=== PATIENT | female | born 1965 | race Caucasian/White ===

== ENCOUNTER 2021-01-19 14:36 | Day surgery (SDC) | payer MEDICARE, MEDICAID, SELFPAY ==
--- NOTE | ~2021-01-19 | FL_ITS ---
EXAMINATION: XR FLUOROSCOPY WITH IMAGES CLINICAL INFORMATION: Left kidney stone COMPARISON: None. TECHNIQUE: Fluoroscopy performed by Dr. Gee. Fluoroscopy time: 0.5 minutes DAP: 7.46 mGycm2 Images: 2 FINDINGS: Contrast opacification of the distal ureter is demonstrated. There may be a focus of narrowing versus peristalsis of the distal ureter. Additional image demonstrates the distal extent of a ureteral stent. FL/FL guidance in OR IMPRESSION: Intraoperative fluoroscopy provided for left ureteral stent placement. Correlate with the surgical notes.
[2021-01-19 15:13] VITALS: BMI 21.7
--- NOTE | 2021-01-19 15:39 | P.CONAN_ITS ---
[facility] Active Problems Active Problems: All Active Problems (Updated 01/13/21 @ 16:23 by Samuel klein MD) Nephrolithiasis (Acute) Social History Social History Patient Tobacco Use Status: Current everyday Tobacco user Cigarettes Per Day: 10 Use of substances other than those prescribed or required for medical reasons: Yes Substance Use Frequency: Daily Are you DNR?: No Advance Directives: Yes Advance Directives Information Provided: Yes Advance Directives on File: No Advance Directives Date on File: 01/19/21 Meds Allergies Allergy/AdvReac Type Severity Reaction Status Date / Time hydrochlorothiazide [Maxzide] Allergy Unknown Verified 07/13/19 00:00 morphine [MORPHINE] Allergy Unknown NAUSEA & Unverified 04/10/20 16:30 VOMITING penicillin V Allergy Unknown Verified 07/13/19 00:00 Penicillins [PENICILLINS] Allergy Unknown RASH Unverified 04/10/20 16:30 Sulfa (Sulfonamide Allergy Unknown RASH Unverified 04/10/20 16:30 Antibiotics) [SULFA (SULFONAMIDE ANTIBIOTICS)] sulfamethoxazole Allergy Unknown RASH Unverified 04/10/20 16:30 [From BACTRIM] tamsulosin [From FLOMAX] Allergy Unknown RASH Unverified 04/10/20 16:30 triamterene [Maxzide] Allergy Unknown Verified 07/13/19 00:00 trimethoprim [From BACTRIM] Allergy Unknown RASH Unverified 04/10/20 16:30 Sulfacet-R Allergy Unknown Uncoded 07/13/19 00:00 Exam Exam Date and Time: January 19, 2021 1539 Height,Weight and Vital Signs: Height 5 ft 1 in Weight 52.163 kg Airway Mallampati Class: II TM Dist: >3cm Neck ROM: Full Assessment and Plan Assessment Anesthesia Assessment: Anesthesia Plan Discussed, Smoking Cess. Discussed and Chart Reviewed Final Anesthetic Review NPO: Yes ASA Class: II Final Preanesthetic Review: No Changes in Pt Med Stat, Meds/Allgs Chart Reviewed, Consent Obtained/Reviewed and Anes Risks/Benef Reviewed Patient Risk: Low Procedure Risk: Low Assessment/Block/Sedation in SS: Assess/Block/Sedation-SS Anesthetic Plan Anesthetic Plan: GA Disposition: Standard PACU
[2021-01-19] MEDS: levoFLOXacin 500 MG TABLET PO (15:58)
--- NOTE | 2021-01-19 15:58 | P.HPSUR_ITS ---
Pre-Procedural Eval Section A Date of Service: 01/19/21 Section B Chief Complaint: calculus of kidney Details of Present Illness: complaint of left flank pain with CT scan from [facility] showing left ureteric stone Relevant Family History (Specify if Yes): Yes Relevant Social History: None Present Medications: see Short Stay Collaborative assessment Medical History: Significant History ( recurrent stone former) History of Previous Operations: Relevant previous surgery/procedure and date(s) Allergies: Allergies Allergy/AdvReac Type Severity Reaction Status Date / Time hydrochlorothiazide [Maxzide] Allergy Unknown Verified 07/13/19 00:00 morphine [MORPHINE] Allergy Unknown NAUSEA & Unverified 04/10/20 16:30 VOMITING penicillin V Allergy Unknown Verified 07/13/19 00:00 Penicillins [PENICILLINS] Allergy Unknown RASH Unverified 04/10/20 16:30 Sulfa (Sulfonamide Allergy Unknown RASH Unverified 04/10/20 16:30 Antibiotics) [SULFA (SULFONAMIDE ANTIBIOTICS)] sulfamethoxazole Allergy Unknown RASH Unverified 04/10/20 16:30 [From BACTRIM] tamsulosin [From FLOMAX] Allergy Unknown RASH Unverified 04/10/20 16:30 triamterene [Maxzide] Allergy Unknown Verified 07/13/19 00:00 trimethoprim [From BACTRIM] Allergy Unknown RASH Unverified 04/10/20 16:30 Sulfacet-R Allergy Unknown Uncoded 07/13/19 00:00 Review of Systems Sugical H&P ROS: Negative: Constitution, Cardiovascular, Respiratory, Neurological, Psychiatric, Hem-Onc, Allergic/Immunologic, Gastrointestinal, Genitourinary, Musculoskeletal, Integumentary, Endocrine and Eyes/Ears/Nose/Throat Exam Surgical H&P Exam: Normal: HEENT, Normal: Heart, Normal: Lungs, Normal: Extremities, Normal: Abdomen, Normal: Skin and Normal: Neurological Plan Diagnosis/Plan: Unchanged ( left retrograde, ureteroscopy, laser lithotripsy stent placement) I have reviewed the history and physical and performed a pertinent physical examination on my patient. No changes have occurred unless specified.
--- NOTE | 2021-01-19 17:13 | W.PM.OPN ---
Operative Note Operative Note Date of Service: 01/19/21 Narrative: PreOperative Diagnosis: left mid ureteric stone with hydroureteronephrosis Post Operative Diagnosis: left mid ureteric stone with hydroureteronephrosis Procedure: - left cystoscopy, retrograde - left dilatation of ureteric orifice under fluoroscopy - left ureteroscopy, laser lithotripsy, stone basketing - left stent placement Surgeon: Dr Samuel Gee Anesthesia: General Indications for procedure: this is a 55-year-old female. She presented to the emergency room last week and CT scan imaging was performed. CT scan showed stone in the mid ureter. She called early last week seeking intervention. Has previously had ureteroscopy. Recommendation was for ureteroscopy with laser lithotripsy and stent placement. Procedure: After informed consent was verified patient was brought to the operating placed in supine position. Anesthesia was administered per protocol. Patient was placed in modified dorsal lithotomy position and prepped and draped in a sterile fashion. Safety pause time-out and side of surgery confirmed. Antibiotics confirmed. Twenty-two [place] cystoscope inserted per urethra. Bladder emptied. Left ureteric orifice was cannulated and retrograde examination was performed. Filling defect was seen in the mid left ureter. Sensor guidewire was placed. [place] dilator used to dilate ureteric orifice. Rigid ureteral scope placed. Stone was encountered in mid ureter. Using a 365 laser fiber the stone was broken into small pieces. A 2.4 0 tip basket was used to clear the ureteric stones. One stones were cleared a 6 [place] by 24 cm double-J stent was placed without difficulty. She tolerated procedure well was extubated in operating room transferred in stable condition to recovery area. Pathology: Stones Drains: 6 [place] by 24 cm double-J stent
[2021-01-19 17:15] VITALS: BP 140/92; PULSE 61; RESP 14; TEMP 36.2; O2SAT 99
[2021-01-19 17:20] VITALS: BP 150/90; PULSE 64; RESP 15; O2SAT 98
[2021-01-19 17:25] VITALS: BP 149/94; PULSE 63; RESP 16; O2SAT 96
[2021-01-19] MEDS: Acetaminophen 325 MG TABLET 650 MG PO (17:25)
[2021-01-19] MEDS: oxyCODONE HCl Immed Release 5 MG TABLET PO (17:29)
[2021-01-19 17:30] VITALS: BP 110/80; PULSE 82; RESP 16; O2SAT 95
[2021-01-19 17:45] VITALS: BP 112/86; PULSE 82; RESP 16; TEMP 36.3; O2SAT 96
[2021-01-19] MEDS: Phenazopyridine HCL 100 MG TABLET PO (17:48)
[2021-01-24 16:46] LABS: Stone Source LEFT KIDNEY STONE
== END 2021-01-19 17:58 | disposition home or self-care (01) ==
PROVIDERS: PCP Family Medicine; Visit Provider Urology
PROC: (CPT 52356; principal; 2021-01-19 16:40)
DX: N20.1 Calculus of ureter (principal); N13.30 Unspecified hydronephrosis; F17.210 Nicotine dependence, cigarettes, uncomplicated; Z88.0 Allergy status to penicillin; Z88.2 Allergy status to sulfonamides; Z88.8 Allergy status to other drugs, medicaments and biological substances
CPT/HCPCS: 52356; 52352; 82365; 88300; C1758; C1769; C2617; J1100; J1885; J2250; J3010; Q9967

== ENCOUNTER → 2021-01-21 14:01 | Outpatient (BNVA) | payer MEDICARE, MEDICAID, SELFPAY | PROVIDERS: PCP Family Medicine; Visit Provider Urology | DX: N20.0 Calculus of kidney (principal) | CPT/HCPCS: 52310; 99212 ==

== ENCOUNTER → 2021-03-10 10:35 | Outpatient (BNVA) | payer MEDICARE, MEDICAID, SELFPAY | PROVIDERS: PCP Family Medicine; Visit Provider Urology | DX: N20.0 Calculus of kidney (principal) | CPT/HCPCS: 99212 ==

== ENCOUNTER 2022-02-16 07:41 | Day surgery (SDC) | payer MEDICARE, MEDICAID, SELFPAY ==
[2022-02-10 10:58] VITALS: BMI 20.7
[2022-02-16 08:22] VITALS: BP 123/87; PULSE 67; RESP 18; TEMP 36.7; O2SAT 97
[2022-02-16] MEDS: Lactated Ringers 1,000 ML 50 ML IVCONT (08:26)
--- NOTE | 2022-02-16 09:19 | MHC.SHP ---
Pre-Procedural Eval Section A Date of Service: 02/16/22 Section B Chief Complaint: barretts,abnormal findings Details of Present Illness: see H&P no changes Relevant Family History (Specify if Yes): No Relevant Social History: None Present Medications: see Short Stay [facility] assessment Medical History: No relevant PMH History of Previous Operations: No relevant previous surgery Allergies: Allergies Allergy/AdvReac Type Severity Reaction Status Date / Time morphine [MORPHINE] Allergy Intermediate NAUSEA & Verified 02/16/22 08:34 VOMITING Penicillins [PENICILLINS] Allergy Intermediate rash/swelli Verified 02/10/22 08:22 ng sulfamethoxazole Allergy Intermediate RASH Verified 02/10/22 08:23 [From BACTRIM] tamsulosin [From FLOMAX] Allergy Intermediate RASH Verified 02/10/22 08:23 trimethoprim [From BACTRIM] Allergy Intermediate RASH Verified 02/10/22 08:23 hydrochlorothiazide [Maxzide] Allergy Mild Rash Verified 02/10/22 08:22 triamterene [Maxzide] Allergy Mild Rash Verified 02/10/22 08:22 Review of Systems Sugical H&P ROS: Negative: Constitution, Cardiovascular, Respiratory, Neurological, Psychiatric, Hem-Onc, Allergic/Immunologic, Gastrointestinal, Genitourinary, Musculoskeletal, Integumentary, Endocrine and Eyes/Ears/Nose/Throat Exam Surgical H&P Exam: Normal: HEENT, Normal: Heart, Normal: Lungs, Normal: Extremities, Normal: Abdomen, Normal: Skin and Normal: Neurological Plan I have reviewed the history and physical and performed a pertinent physical examination on my patient. No changes have occurred unless specified.
[2022-02-16 10:10] VITALS: BP 123/76; PULSE 87; RESP 16; TEMP 36.2; O2SAT 98
--- NOTE | 2022-02-16 10:14 | PM.OP ---
Brief Operative Note Date of Service: 02/16/22 Pre-op diagnosis: barretts, abnormal findings in gi tract Post-op diagnosis: same Surgeon: Jorge Barksdale Anesthesia: MAC Was an Hydrography Teacher used for this Procedure?: No Estimated blood loss (mL): 2 Pathology: other Condition: stable Disposition: PACU
[2022-02-16 10:25] VITALS: BP 133/93; PULSE 67; RESP 16; TEMP 36.3; O2SAT 97
--- NOTE | 2022-02-16 10:31 | OP_ITS ---
SURGEON: Jorge Barksdale MD INDICATIONS: 1. Bolanos's esophagus. 2. Abnormal findings on GI tract examination. PREOPERATIVE DIAGNOSIS: POSTOPERATIVE DIAGNOSIS: PROCEDURE PERFORMED: Upper endoscopy with biopsy, colonoscopy to the terminal ileum with biopsy. ESTIMATED BLOOD LOSS: COMPLICATIONS: ANESTHESIA: Monitored anesthesia care. ASSISTANTS: SPECIMENS: DESCRIPTION OF PROCEDURE: History and physical performed. The risks and benefits of the procedure were explained to the patient. Informed consent was obtained. The patient placed in the left lateral decubitus position. The Olympus videogastroscope was introduced into the esophagus, stomach, and duodenum. Examination was performed. The scope was removed. She was repositioned for colonoscopy. A digital rectal exam was performed and was found to be normal. The Olympus pediatric videocolonoscope was introduced into the rectum and advanced to the cecum without difficulty. The cecum was identified by transillumination, palpation, and identification of ileocecal valve. Examination was performed. The scope was removed. She tolerated both procedures well, returned to recovery room in stable condition. FINDINGS: Upper endoscopy: Esophagus; the esophagus was normal. There was no esophagitis. The EG junction was irregular. There were no raised lesions or ulcerated areas. There was a small sliding hiatal hernia. Biopsies were obtained from the EG junction. Stomach; the stomach showed no evidence of masses, ulcers, or polyps. No evidence of parasites was identified. Biopsies were obtained from the antrum. Duodenum; the bulb and second portion were normal. Duodenal biopsies were obtained. Colonoscopy: The terminal ileum was examined for approximately 15 cm and appeared normal. The visualized colonic mucosa was within normal limits without evidence of masses or ulcers. No polyps were identified. Retroflexed examination showed small internal hemorrhoids. There was no evidence of any parasites. The prep was excellent. Biopsies were obtained from the terminal ileum, right colon, and sigmoid colon. IMPRESSION: 1. Bolanos esophagus. 2. Sliding hiatal hernia. 3. Normal colonoscopy. RECOMMENDATION: Follow up the biopsy results. Screening colonoscopy in 10 years. MD [facility]/CRISELDA / [id number] MTDD
--- NOTE | 2022-02-16 12:43 | HO.ANESPROP2 ---
HPI - Anesthesia Eval Consult details Narrative: 56 F smoker for EGD/colonoscopy [facility] Active Problems Active Problems: All Active Problems (Updated 02/10/22 @ 10:45 by Roxanne Clark RN) Nephrolithiasis (Acute) Past Medical History Medical History Anxiety and depression Back pain Bolanos esophagus Renal calculi Family History Family history of problems with anesthesia: No Surgical History Surgical History H/O colonoscopy History of esophagogastroduodenoscopy (EGD) Hx of cystoscopy Hx of tubal ligation History of Problems with Anesthesia: No Social History Social History Patient Tobacco Use Status: Current everyday Tobacco user Cigarettes Per Day: 10 Smoked in Last 30 Days: Yes Patient Interested in Nicotine Replacement: No Substance Use Type Other:: last marijuana hs Substance Use Frequency: Daily Are you DNR?: No Advance Directives: Yes Advance Directives on File: Yes Advance Directives Date on File: 01/19/21 Recently lost weight without trying: Yes How much weight loss: 2-13 pounds Meds Allergies Allergy/AdvReac Type Severity Reaction Status Date / Time morphine [MORPHINE] Allergy Intermediate NAUSEA & Verified 02/16/22 08:34 VOMITING Penicillins [PENICILLINS] Allergy Intermediate rash/swelli Verified 02/10/22 08:22 ng sulfamethoxazole Allergy Intermediate RASH Verified 02/10/22 08:23 [From BACTRIM] tamsulosin [From FLOMAX] Allergy Intermediate RASH Verified 02/10/22 08:23 trimethoprim [From BACTRIM] Allergy Intermediate RASH Verified 02/10/22 08:23 hydrochlorothiazide [Maxzide] Allergy Mild Rash Verified 02/10/22 08:22 triamterene [Maxzide] Allergy Mild Rash Verified 02/10/22 08:22 Exam Exam Date and Time: February 16, 2022 1243 Height,Weight and Vital Signs: Height 5 ft 1 in Weight 110 lb Last Vital Signs Temp 97.3 F 02/16/22 10:25 Pulse 67 02/16/22 10:25 Resp 16 02/16/22 10:25 BP 133/93 H 02/16/22 10:25 Pulse Ox 97 02/16/22 10:25 O2 Del Method 02/16/22 10:25 Airway Mallampati Class: I TM Dist: >3cm Neck ROM: Full Partial: Upper Loose/Missing/Broken Teeth: Yes (poor dentition; multiple missing/broken teeth) Assessment and Plan Assessment Anesthesia Assessment: Anesthesia Plan Discussed and Chart Reviewed Final Anesthetic Review Family History of Problems with Anesthesia: No History of Problems with Anesthesia: No NPO: Yes ASA Class: II Final Preanesthetic Review: No Changes in Pt Med Stat, Meds/Allgs Chart Reviewed, Consent Obtained/Reviewed and Anes Risks/Benef Reviewed Patient Risk: Low Procedure Risk: Low Anesthetic Plan Anesthetic Plan: MAC: Disposition: Standard PACU
== END 2022-02-16 11:16 | disposition home or self-care (01) ==
PROVIDERS: PCP Family Medicine; Visit Provider Internal Medicine Gastroenterology
PROC: (CPT 45380; principal; 2022-02-16 08:50)
DX: R93.3 Abnormal findings on diagnostic imaging of other parts of digestive tract (principal); Z86.010 Personal history of colon polyps; K64.8 Other hemorrhoids; K22.70 Barrett's esophagus without dysplasia; K44.9 Diaphragmatic hernia without obstruction or gangrene; F41.8 Other specified anxiety disorders; F12.90 Cannabis use, unspecified, uncomplicated; Z79.899 Other long term (current) drug therapy; Z87.442 Personal history of urinary calculi; Z88.0 Allergy status to penicillin; Z88.2 Allergy status to sulfonamides; Z88.8 Allergy status to other drugs, medicaments and biological substances; F17.210 Nicotine dependence, cigarettes, uncomplicated
CPT/HCPCS: 45380; 43239; 88305; 88342; J2250; J3010

== ENCOUNTER 2022-07-07 10:30 | Emergency (ER) | payer MEDICARE, MEDICAID, SELFPAY ==
--- NOTE | ~2022-07-07 | CT_ITS ---
EXAMINATION: CT ABDOMEN AND PELVIS WITHOUT CONTRAST CLINICAL INFORMATION: Flank pain with history of kidney stone COMPARISON: Renal ultrasound 03/14/2019, CT abdomen pelvis 08/18/2018 TECHNIQUE: Multidetector volumetric imaging was performed from the superior aspect of the liver through the pubic symphysis. Sagittal and coronal reformatted images were obtained on the technologist's workstation. This CT examination was performed using dose optimization techniques as appropriate, variously including the following: *Automated exposure control *Adjustment of mA and/or kV according to patient size (this includes techniques or standardized protocols for targeted exams where dose is matched to indication/reason for exam; i.e. extremities or head) *Use of iterative reconstruction technique DLP: 292 mGy-cm FINDINGS: LUNG BASES: The visualized lung bases are unremarkable. LIVER, GALLBLADDER, AND BILIARY TREE: The liver is normal in size, shape, and attenuation. No focal hepatic lesion or biliary ductal dilatation is present. The gallbladder is unremarkable with no evidence of radiopaque gallstones, gallbladder wall thickening, or obvious pericholecystic inflammatory changes. PANCREAS: Unremarkable. SPLEEN: Unremarkable. ADRENAL GLANDS: Unremarkable. KIDNEYS AND URETERS: LEFT: There is left-sided hydronephrosis with dilatation of the ureter down to the level of a 6 mm obstructing left ureteral calculus. The stone measures about 877 Hounsfield units and is about 6 cm above the UVJ. A single additional 1 mm-sized punctate nonobstructing calcification is seen within the left kidney. No renal masses are seen. RIGHT: The right kidney and ureter appear normal. No calculi or masses are seen. BLADDER: Unremarkable. GASTROINTESTINAL TRACT: The small and large bowel are unremarkable. The appendix is is not seen but there is no evidence of appendicitis. ABDOMINAL WALL: No significant hernia is appreciated. LYMPH NODES: No retroperitoneal lymphadenopathy. VASCULAR: Minimal calcific plaque. Aorta and iliac vessels are tortuous. No aneurysm. PELVIC VISCERA: A retroverted uterus is present. An abnormal adnexal mass or free intraperitoneal fluid is not seen. OSSEOUS STRUCTURES: Degenerative changes seen at L5-S1 with marked grade 1 anterolisthesis and bilateral L5 pars defects. CT/CT abdomen pelvis wo IV con IMPRESSION: Obstructing 6 mm distal left ureteral calculus with associated hydronephrosis. Fleischner guidelines were followed.
[2022-07-07 11:22] LABS: MANUAL DIFF FLAG NO
[2022-07-07 11:23] VITALS: BP 153/100; PULSE 70; RESP 18; TEMP 36; O2SAT 98; BMI 20.7
--- NOTE | 2022-07-07 11:25 | ED.ABDPAIN ---
HPI - Abdominal Pain General Chief Complaint: Abdominal Pain Stated Complaint: quest kidney stone Time Seen by Provider: 07/07/22 18:53 Related Data Previous Rx's Medication Instructions Recorded ondansetron 4 mg disintegrating 4 mg PO Q8H PRN nausea and 07/07/22 tablet vomiting #14 tabs oxycodone 5 mg tablet 5 mg PO TID PRN pain #20 tabs 07/07/22 naproxen 500 mg tablet 500 mg PO BID PRN pain 7 days #14 07/12/22 tabs naproxen 500 mg tablet 500 mg PO BID PRN pain 7 days #14 07/12/22 tabs tramadol 50 mg tablet 50 mg PO Q6H PRN pain (scale score 07/12/22 1-3) #8 tabs tramadol 50 mg tablet 50 mg PO Q6H PRN pain (scale score 07/12/22 1-3) #8 tabs oxybutynin chloride 5 mg 5 mg PO DAILY 14 days #14 tabs 07/13/22 tablet,extended release 24 hr Allergies Allergy/AdvReac Type Severity Reaction Status Date / Time morphine [MORPHINE] Allergy Intermediate NAUSEA & Verified 07/08/22 12:12 VOMITING Penicillins [PENICILLINS] Allergy Intermediate rash/swelli Verified 07/08/22 12:12 ng sulfamethoxazole Allergy Intermediate RASH Verified 07/08/22 12:12 [From BACTRIM] tamsulosin [From FLOMAX] Allergy Intermediate RASH Verified 07/08/22 12:12 trimethoprim [From BACTRIM] Allergy Intermediate RASH Verified 07/08/22 12:12 hydrochlorothiazide [Maxzide] Allergy Mild Rash Verified 07/08/22 12:12 triamterene [Maxzide] Allergy Mild Rash Verified 07/08/22 12:12 terazosin Allergy Swelling Verified 07/08/22 12:12 PMFSH Past Medical History Medical History (Updated 07/08/22 @ 13:26 by QUENTIN Jeff-[place]) Anxiety and depression Back pain Bolanos esophagus Hydronephrosis with renal and ureteral calculous obstruction Renal calculi Surgical History (Updated 07/12/22 @ 13:16 by Donna Hawley RN) H/O colonoscopy History of esophagogastroduodenoscopy (EGD) History of loop electrical excision procedure (LEEP) Hx of cystoscopy Hx of tubal ligation Social History Social History Patient Tobacco Use Status: Current everyday Tobacco user Tobacco use type: Cigarette Cigarettes Per Day: 10 Advance Directives Date on File: 01/19/21 Physical Exam ED Vital Signs: BMI result Body Mass Index 20.7 Course Course Course Narrative: This is a rapid medical exam. Deferred additional HPI, ROS, PE to primary provider. 57 yo female with history renal colic (multiples procedures-dr [facility]) here with left flank pain since yesterday, hematuria, chills, nausea. Will need labs, UA, covid screen. hasnt had menses in yrs so test deferred. VSS Medical Decision Making Lab Data Result Diagrams: 07/07/22 11:15 07/07/22 11:15 Labs: Lab Results 07/07/22 07/07/22 07/07/22 Range/Units 11:15 11:15 13:03 WBC 7.1 (4.8-10.8) X10*3/uL RBC 4.61 (4.20-5.50) X10*6/uL Hgb 14.2 (12.0-16.0) g/dl Hct 41.6 (37.0-47.0) % MCV 90.2 (80.0-98.0) fL MCH 30.8 (27.0-33.0) pg MCHC 34.1 (31.0-35.0) g/dl RDW 12.7 (11.0-16.0) % Plt Count 302 (160-400) X10*3/uL MPV 9.7 (9.4-12.3) fL Immature Gran % (Auto) 0.1 (0.0-0.4) % Neut % (Auto) 57.3 (45-73) % Lymph % (Auto) 34.2 (20-40) % [place] % (Auto) 7.6 (2-11) % Eos % (Auto) 0.1 (0-4) % Baso % (Auto) 0.7 (0-2) % Lymph # (Auto) 2.4 (1.2-4.9) X10*3/uL [place] # (Auto) 0.5 (0.1-1.2) X10*3/uL Eos # (Auto) 0.0 (0.0-0.4) X10*3/uL Baso # (Auto) 0.1 (0.0-0.2) X10*3/uL Abs Immat Gran (auto) 0.01 (0.00-0.03) X10*3/uL Absolute Neuts (auto) 4.1 (2.0-8.3) x10*3/uL Absolute Nucleated RBC 0.000 (0.0-0.012) X10*3/uL Nucleated RBC % (auto) 0.0 (0.0-0.2) /100WBC Sodium 139 (135-145) mmol/L Potassium 4.4 (3.3-5.1) mmol/L Chloride 104 (96-108) mmol/L Carbon Dioxide 28 (22-29) mmol/L Anion Gap 11 L (12-20) BUN 10 (9-16) mg/dL Creatinine 0.73 (0.5-1.4) mg/dL Estim Creat Clear Calc 64.9 Estimated GFR > 60 Random Glucose 93 (60-115) mg/dL Calcium 9.7 (8.4-10.2) mg/dL Total Bilirubin 0.8 (0.0-1.0) mg/dL AST 16 (5-31) U/L ALT 16 (0-31) U/L Alkaline Phosphatase 71 (39-117) U/L Total Protein 7.4 (6.5-8.0) g/dL Albumin 4.8 (3.5-5.0) g/dL Urine Color Urine Appearance Urine pH (5.0-9.0) Ur Specific [place] (1.005-1.025) Urine Protein (Neg-Trace) mg/dL Urine Glucose (UA) (Negative) mg/dL Urine Ketones (Negative) mg/dL Urine Blood (Negative) Urine Nitrite (Negative) Ur Leukocyte Esterase (Negative) Urine RBC (0-2) /HPF Urine WBC (0-5) /HPF Ur Squamous Epith Cells (0-2) /HPF Urine Bacteria (None Seen) Hyaline Casts (0-2) /LPF COVID-19 (MANAN) Negative (Negative) COVID-19 Clin Com See Note 07/07/22 Range/Units 13:03 WBC (4.8-10.8) X10*3/uL RBC (4.20-5.50) X10*6/uL Hgb (12.0-16.0) g/dl Hct (37.0-47.0) % MCV (80.0-98.0) fL MCH (27.0-33.0) pg MCHC (31.0-35.0) g/dl RDW (11.0-16.0) % Plt Count (160-400) X10*3/uL MPV (9.4-12.3) fL Immature Gran % (Auto) (0.0-0.4) % Neut % (Auto) (45-73) % Lymph % (Auto) (20-40) % [place] % (Auto) (2-11) % Eos % (Auto) (0-4) % Baso % (Auto) (0-2) % Lymph # (Auto) (1.2-4.9) X10*3/uL [place] # (Auto) (0.1-1.2) X10*3/uL Eos # (Auto) (0.0-0.4) X10*3/uL Baso # (Auto) (0.0-0.2) X10*3/uL Abs Immat Gran (auto) (0.00-0.03) X10*3/uL Absolute Neuts (auto) (2.0-8.3) x10*3/uL Absolute Nucleated RBC (0.0-0.012) X10*3/uL Nucleated RBC % (auto) (0.0-0.2) /100WBC Sodium (135-145) mmol/L Potassium (3.3-5.1) mmol/L Chloride (96-108) mmol/L Carbon Dioxide (22-29) mmol/L Anion Gap (12-20) BUN (9-16) mg/dL Creatinine (0.5-1.4) mg/dL Estim Creat Clear Calc Estimated GFR Random Glucose (60-115) mg/dL Calcium (8.4-10.2) mg/dL Total Bilirubin (0.0-1.0) mg/dL AST (5-31) U/L ALT (0-31) U/L Alkaline Phosphatase (39-117) U/L Total Protein (6.5-8.0) g/dL Albumin (3.5-5.0) g/dL Urine Color Yellow Urine Appearance Clear Urine pH 8.0 (5.0-9.0) Ur Specific [place] 1.010 (1.005-1.025) Urine Protein Negative (Neg-Trace) mg/dL Urine Glucose (UA) Negative (Negative) mg/dL Urine Ketones Negative (Negative) mg/dL Urine Blood Moderate (2+) H (Negative) Urine Nitrite Negative (Negative) Ur Leukocyte Esterase Negative (Negative) Urine RBC >20 H (0-2) /HPF Urine WBC 0-5 (0-5) /HPF Ur Squamous Epith Cells 0-2 (0-2) /HPF Urine Bacteria None Seen (None Seen) Hyaline Casts 3-5 (0-2) /LPF COVID-19 (MANAN) (Negative) COVID-19 Clin Com Medications Administered Discontinued Medications Generic Name Dose Route Start Last Admin Trade Name Freq PRN Reason Stop Dose Admin Hydromorphone HCl 1 mg 07/07/22 19:06 07/07/22 19:28 Hydromorphone Hcl 1 Mg/Ml Syringe IVPUSH 07/07/22 19:07 1 mg ONCE ONE Administration Protocol Sodium Chloride 1,000 mls @ 999 mls/hr 07/07/22 19:15 07/07/22 21:01 Ns IV 07/07/22 20:15 Infused .Q1H1M SHANIA Infusion Ondansetron HCl 4 mg 07/07/22 19:06 07/07/22 19:28 Ondansetron Hcl 4 Mg/2 Ml Vial IVPUSH 07/07/22 19:07 4 mg ONCE ONE Administration Discharge Plan Discharge Clinical Impression: Nephrolithiasis Patient Disposition: Home, Self-Care Instructions: Kidney Stones (ED) Additional Instructions: Your CT scan showed a 6 mm kidney stone in your left ureter. It is causing some obstruction. Please follow-up with your urologist as soon as an appointment is available. Oxycodone his medicine for pain. Drink plenty of liquids Prescriptions: New oxycodone 5 mg tablet 5 mg PO TID PRN (Reason: pain) Qty: 20 0RF Rx Instructions: Partial Fill upon patient request. ondansetron 4 mg tablet,disintegrating 4 mg PO Q8H PRN (Reason: nausea and vomiting) Qty: 14 0RF No Action oxybutynin chloride 5 mg tablet extended release 24hr 5 mg PO DAILY 14 Days Qty: 14 0RF naproxen 500 mg tablet 500 mg PO BID PRN (Reason: pain) 7 Days Qty: 14 0RF tramadol 50 mg tablet 50 mg PO Q6H PRN (Reason: pain (scale score 1-3)) Qty: 8 0RF tramadol 50 mg tablet 50 mg PO Q6H PRN (Reason: pain (scale score 1-3)) Qty: 8 0RF naproxen 500 mg tablet 500 mg PO BID PRN (Reason: pain) 7 Days Qty: 14 0RF Stand Alone Forms: Work/School Release Interventions: ED Discharge Assessment Last Done: 07/07/22 21:01 Discharge Date/Time: 07/07/22 21:02
[2022-07-07 11:29] LABS: Basophils Absolute Auto 0.1 X10*3/uL (0.0-0.2); Basophils Percent Auto 0.7 % (0-2); Eosinophils Percent Auto 0.1 % (0-4); Hematocrit 41.6 % (37.0-47.0); Hemoglobin 14.2 g/dl (12.0-16.0); Imm Gran Abs Auto 0.01 X10*3/uL (0.00-0.03); Imm Gran Pct Auto 0.1 % (0.0-0.4); Lymphocytes Absolute Auto 2.4 X10*3/uL (1.2-4.9); Lymphocytes Percent Auto 34.2 % (20-40); Mean Corpuscular HGB Conc 34.1 g/dl (31.0-35.0); Mean Corpuscular Hemoglobin 30.8 pg (27.0-33.0); Mean Corpuscular Volume 90.2 fL (80.0-98.0); Mean Platelet Volume 9.7 fL (9.4-12.3); Monocytes Absolute Auto 0.5 X10*3/uL (0.1-1.2); Monocytes Percent Auto 7.6 % (2-11); Neutrophils Absolute Auto 4.1 x10*3/uL (2.0-8.3); Neutrophils Percent Auto 57.3 % (45-73); Platelet Count 302 X10*3/uL (160-400); Red Blood Count 4.61 X10*6/uL (4.20-5.50); Red Cell Distribution Width 12.7 % (11.0-16.0); White Blood Count 7.1 X10*3/uL (4.8-10.8)
[2022-07-07 11:56] LABS: Alanine Aminotransferase 16 U/L (0-31); Albumin Level 4.8 g/dL (3.5-5.0); Alkaline Phosphatase 71 U/L (39-117); Anion Gap 11 (12-20); Aspartate Amino Transferase 16 U/L (5-31); Blood Urea Nitrogen 10 mg/dL (9-16); Calcium 9.7 mg/dL (8.4-10.2); Carbon Dioxide 28 mmol/L (22-29); Chloride 104 mmol/L (96-108); Creatinine Clr Calc Pharmacy 64.9; Estimated Glomerular Filt Rate > 60; Glucose Random 93 mg/dL (60-115); Potassium 4.4 mmol/L (3.3-5.1); Sodium 139 mmol/L (135-145); Total Protein 7.4 g/dL (6.5-8.0)
[2022-07-07 13:12] LABS: Appearance Urine Clear; Color Urine Yellow; Glucose Urine UA Negative (Negative); Leukocyte Esterase Urine Negative (Negative); Nitrite Urine Negative (Negative); UMIC TRIGGER UACC YES; Urine Blood Moderate (2+) (Negative); Urine Ketones Negative (Negative); Urine Protein Negative (Neg-Trace)
[2022-07-07 13:17] LABS: Bacteria Urine None Seen (None Seen); RBC Urine >20 /HPF (0-2); Squamous Epithelial Cell Urine 0-2 /HPF (0-2); WBC Urine 0-5 /HPF (0-5)
[2022-07-07 13:27] LABS: COVID-19 Test Negative (Negative); IDNOW Serial# BCCEAD1C
[2022-07-07 14:09] LABS: Bilirubin Total 0.8 mg/dL (0.0-1.0)
[2022-07-07] MEDS: 0.9 % Sodium Chloride 1,000 ML 999 ML IV (19:27)
[2022-07-07] MEDS: ondansetron HCL 4 MG/2 ML VIAL IVPUSH (19:28)
[2022-07-07] MEDS: HYDROmorphone HCl 1 MG/ML SYRINGE IVPUSH (19:28)
--- NOTE | 2022-07-07 19:31 | PC.NURSE ---
Pt given pain medicine, and placed on monitor. No other needs expressed at this time.
--- NOTE | 2022-07-07 19:59 | ED.ABDPAIN ---
HPI - Abdominal Pain General Chief Complaint: Abdominal Pain Stated Complaint: quest kidney stone Time Seen by Provider: 07/07/22 18:53 Source: patient, family and old records reviewed History of Present Illness HPI narrative: Patient has a long history of kidney stones. Complaining of left-sided flank pain radiating to left groin very similar prior episodes of kidney stones. She has a history of stones that have not passed requiring stenting and lithotripsy. Her urologist is Dr. Gee. Some hematuria. No fevers or chills. Some nausea no vomiting. No diarrhea. She also complains of some pain radiating down her left leg which is not a symptom of her usual kidney stone. She has a history of sciatic on the right but not on the left. No bowel or bladder incontinence Related Data Previous Rx's Medication Instructions Recorded prednisone 20 mg tablet 20 mg PO DAILY 5 days #5 tabs 01/13/21 terazosin 1 mg capsule 1 mg PO BEDTIME 14 days #14 caps 01/13/21 tramadol 50 mg tablet 50 mg PO Q8H PRN pain #15 tabs 01/13/21 phenazopyridine 100 mg tablet 100 mg PO TID PRN spasm 4 days 01/19/21 (Pyridium) #12 tabs tramadol 50 mg tablet 50 mg PO Q6H PRN pain (scale score 01/19/21 4-6) #14 tabs oxycodone-acetaminophen 5 mg-325 1 tab PO Q8H PRN pain #10 tabs 01/20/21 mg tablet (Percocet) allopurinol 100 mg tablet 100 mg PO DAILY 90 days #90 tabs 03/10/21 pyridoxine (vitamin B6) 100 mg 100 mg PO DAILY 90 days #90 tabs 03/10/21 tablet ondansetron 4 mg disintegrating 4 mg PO Q8H PRN nausea and 07/07/22 tablet vomiting #14 tabs oxycodone 5 mg tablet 5 mg PO TID PRN pain #20 tabs 07/07/22 Allergies Allergy/AdvReac Type Severity Reaction Status Date / Time morphine [MORPHINE] Allergy Intermediate NAUSEA & Verified 02/16/22 08:34 VOMITING Penicillins [PENICILLINS] Allergy Intermediate rash/swelli Verified 02/10/22 08:22 ng sulfamethoxazole Allergy Intermediate RASH Verified 02/10/22 08:23 [From BACTRIM] tamsulosin [From FLOMAX] Allergy Intermediate RASH Verified 02/10/22 08:23 trimethoprim [From BACTRIM] Allergy Intermediate RASH Verified 02/10/22 08:23 hydrochlorothiazide [Maxzide] Allergy Mild Rash Verified 02/10/22 08:22 triamterene [Maxzide] Allergy Mild Rash Verified 02/10/22 08:22 Review of Systems Comments: No fevers or chills Comments: No chest pain Comments: No dyspnea or cough Comments: Flank pain as described Comments: Hematuria without dysuria Comments: Back pain radiating down her left leg Comments: No rash Comments: No weakness, but some tingling of her left foot PMFSH Past Medical History Medical History Anxiety and depression Back pain Bolanos esophagus Renal calculi Surgical History H/O colonoscopy History of esophagogastroduodenoscopy (EGD) Hx of cystoscopy Hx of tubal ligation Social History Social History Patient Tobacco Use Status: Current everyday Tobacco user Cigarettes Per Day: 10 Advance Directives: Yes Advance Directives Information Provided: No Advance Directives on File: No Advance Directives Date on File: 01/19/21 Physical Exam ED Vital Signs: Vital Signs - 24 hr 07/07/22 11:23 Temperature 96.8 F Pulse Rate 70 Respiratory Rate 18 Blood Pressure 153/100 H Pulse Oximetry 98 Oxygen Delivery Method Room Air BMI result Body Mass Index 20.7 Const Other: Awake alert. No acute distress Resp Other: Clear and equal bilaterally Cardio Other: Regular rate and rhythm without murmurs rubs or gallops GI Other: Mild left lower quadrant abdominal tenderness without guarding or rebound. Positive left flank tenderness to percussion. Remainder of abdominal exam is negative. Nondistended. No guarding or rebound Skin Other: Warm pink and dry Neuro Other: Awake alert and oriented. No acute neurologic deficit Extrem Other: No pedal edema or posterior midline calf tenderness Course Course Course Narrative: Kidney stone Sciatica Musculoskeletal pain Pyelonephritis Lab work shows normal CBC and chemistries. Urinalysis shows 20+ red cells with only 0-5 white cells. Given history and change of symptoms, discussed with patient the option for a CT scan. She states she has had many prior but agrees that she feels she needs another 1 today. 20:04. CT scan shows 6 mm obstructing kidney stone in her left distal ureter several cm proximal to the UVJ. Otherwise unremarkable CT scan. Patient is much more comfortable after IV fluids and Dilaudid. Will discharge home with Percocet for pain. She is allergic to tamsulosin. Will have her follow-up with her urologist as soon as that visit is possible Medical Decision Making Lab Data MDM Lab Attestation statement: I reviewed the patient's lab results. Result Diagrams: 07/07/22 11:15 07/07/22 11:15 Labs: Lab Results 07/07/22 07/07/22 07/07/22 Range/Units 11:15 11:15 13:03 WBC 7.1 (4.8-10.8) X10*3/uL RBC 4.61 (4.20-5.50) X10*6/uL Hgb 14.2 (12.0-16.0) g/dl Hct 41.6 (37.0-47.0) % MCV 90.2 (80.0-98.0) fL MCH 30.8 (27.0-33.0) pg MCHC 34.1 (31.0-35.0) g/dl RDW 12.7 (11.0-16.0) % Plt Count 302 (160-400) X10*3/uL MPV 9.7 (9.4-12.3) fL Immature Gran % (Auto) 0.1 (0.0-0.4) % Neut % (Auto) 57.3 (45-73) % Lymph % (Auto) 34.2 (20-40) % [place] % (Auto) 7.6 (2-11) % Eos % (Auto) 0.1 (0-4) % Baso % (Auto) 0.7 (0-2) % Lymph # (Auto) 2.4 (1.2-4.9) X10*3/uL [place] # (Auto) 0.5 (0.1-1.2) X10*3/uL Eos # (Auto) 0.0 (0.0-0.4) X10*3/uL Baso # (Auto) 0.1 (0.0-0.2) X10*3/uL Abs Immat Gran (auto) 0.01 (0.00-0.03) X10*3/uL Absolute Neuts (auto) 4.1 (2.0-8.3) x10*3/uL Absolute Nucleated RBC 0.000 (0.0-0.012) X10*3/uL Nucleated RBC % (auto) 0.0 (0.0-0.2) /100WBC Sodium 139 (135-145) mmol/L Potassium 4.4 (3.3-5.1) mmol/L Chloride 104 (96-108) mmol/L Carbon Dioxide 28 (22-29) mmol/L Anion Gap 11 L (12-20) BUN 10 (9-16) mg/dL Creatinine 0.73 (0.5-1.4) mg/dL Estim Creat Clear Calc 64.9 Estimated GFR > 60 Random Glucose 93 (60-115) mg/dL Calcium 9.7 (8.4-10.2) mg/dL Total Bilirubin 0.8 (0.0-1.0) mg/dL AST 16 (5-31) U/L ALT 16 (0-31) U/L Alkaline Phosphatase 71 (39-117) U/L Total Protein 7.4 (6.5-8.0) g/dL Albumin 4.8 (3.5-5.0) g/dL Urine Color Urine Appearance Urine pH (5.0-9.0) Ur Specific [place] (1.005-1.025) Urine Protein (Neg-Trace) mg/dL Urine Glucose (UA) (Negative) mg/dL Urine Ketones (Negative) mg/dL Urine Blood (Negative) Urine Nitrite (Negative) Ur Leukocyte Esterase (Negative) Urine RBC (0-2) /HPF Urine WBC (0-5) /HPF Ur Squamous Epith Cells (0-2) /HPF Urine Bacteria (None Seen) Hyaline Casts (0-2) /LPF COVID-19 (MANAN) Negative (Negative) COVID-19 Clin Com See Note 07/07/22 Range/Units 13:03 WBC (4.8-10.8) X10*3/uL RBC (4.20-5.50) X10*6/uL Hgb (12.0-16.0) g/dl Hct (37.0-47.0) % MCV (80.0-98.0) fL MCH (27.0-33.0) pg MCHC (31.0-35.0) g/dl RDW (11.0-16.0) % Plt Count (160-400) X10*3/uL MPV (9.4-12.3) fL Immature Gran % (Auto) (0.0-0.4) % Neut % (Auto) (45-73) % Lymph % (Auto) (20-40) % [place] % (Auto) (2-11) % Eos % (Auto) (0-4) % Baso % (Auto) (0-2) % Lymph # (Auto) (1.2-4.9) X10*3/uL [place] # (Auto) (0.1-1.2) X10*3/uL Eos # (Auto) (0.0-0.4) X10*3/uL Baso # (Auto) (0.0-0.2) X10*3/uL Abs Immat Gran (auto) (0.00-0.03) X10*3/uL Absolute Neuts (auto) (2.0-8.3) x10*3/uL Absolute Nucleated RBC (0.0-0.012) X10*3/uL Nucleated RBC % (auto) (0.0-0.2) /100WBC Sodium (135-145) mmol/L Potassium (3.3-5.1) mmol/L Chloride (96-108) mmol/L Carbon Dioxide (22-29) mmol/L Anion Gap (12-20) BUN (9-16) mg/dL Creatinine (0.5-1.4) mg/dL Estim Creat Clear Calc Estimated GFR Random Glucose (60-115) mg/dL Calcium (8.4-10.2) mg/dL Total Bilirubin (0.0-1.0) mg/dL AST (5-31) U/L ALT (0-31) U/L Alkaline Phosphatase (39-117) U/L Total Protein (6.5-8.0) g/dL Albumin (3.5-5.0) g/dL Urine Color Yellow Urine Appearance Clear Urine pH 8.0 (5.0-9.0) Ur Specific [place] 1.010 (1.005-1.025) Urine Protein Negative (Neg-Trace) mg/dL Urine Glucose (UA) Negative (Negative) mg/dL Urine Ketones Negative (Negative) mg/dL Urine Blood Moderate (2+) H (Negative) Urine Nitrite Negative (Negative) Ur Leukocyte Esterase Negative (Negative) Urine RBC >20 H (0-2) /HPF Urine WBC 0-5 (0-5) /HPF Ur Squamous Epith Cells 0-2 (0-2) /HPF Urine Bacteria None Seen (None Seen) Hyaline Casts 3-5 (0-2) /LPF COVID-19 (MANAN) (Negative) COVID-19 Clin Com Radiology Impression Discussion of test interpretation with radiology: I have reviewed the radiologist's reading. Independent Historian Clinical information obtained from an independent historian. History obtained from or confirmed by: Spouse External Record Review External record reviewed: Inpatient record, Office record, Prior outpatient labs and Prior outpatient radiology Urology notes from prior visits Prescription Management I considered prescription management with: Pain Medication Medications Administered Generic Name Dose Route Start Last Admin Trade Name Freq PRN Reason Stop Dose Admin Sodium Chloride 1,000 mls @ 999 mls/hr 07/07/22 19:15 07/07/22 19:27 Ns IV 07/07/22 20:15 999 mls/hr .Q1H1M SHANIA Administration Discontinued Medications Generic Name Dose Route Start Last Admin Trade Name Freq PRN Reason Stop Dose Admin Hydromorphone HCl 1 mg 07/07/22 19:06 07/07/22 19:28 Hydromorphone Hcl 1 Mg/Ml Syringe IVPUSH 07/07/22 19:07 1 mg ONCE ONE Administration Protocol Ondansetron HCl 4 mg 07/07/22 19:06 07/07/22 19:28 Ondansetron Hcl 4 Mg/2 Ml Vial IVPUSH 07/07/22 19:07 4 mg ONCE ONE Administration Discharge Plan Discharge Clinical Impression: Nephrolithiasis Patient Disposition: Home, Self-Care Instructions: Kidney Stones (ED) Additional Instructions: Your CT scan showed a 6 mm kidney stone in your left ureter. It is causing some obstruction. Please follow-up with your urologist as soon as an appointment is available. Oxycodone his medicine for pain. Drink plenty of liquids Prescriptions: New oxycodone 5 mg tablet 5 mg PO TID PRN (Reason: pain) Qty: 20 0RF Rx Instructions: Partial Fill upon patient request. ondansetron 4 mg tablet,disintegrating 4 mg PO Q8H PRN (Reason: nausea and vomiting) Qty: 14 0RF No Action terazosin 1 mg capsule 1 mg PO BEDTIME 14 Days Qty: 14 0RF prednisone 20 mg tablet 20 mg PO DAILY 5 Days Qty: 5 0RF tramadol 50 mg tablet 50 mg PO Q8H PRN (Reason: pain) Qty: 15 0RF oxycodone-acetaminophen [Percocet] 5-325 mg tablet 1 tab PO Q8H PRN (Reason: pain) Qty: 10 0RF phenazopyridine [Pyridium] 100 mg tablet 100 mg PO TID PRN (Reason: spasm) 4 Days Qty: 12 0RF tramadol 50 mg tablet 50 mg PO Q6H PRN (Reason: pain (scale score 4-6)) Qty: 14 0RF allopurinol 100 mg tablet 100 mg PO DAILY 90 Days Qty: 90 1RF pyridoxine (vitamin B6) 100 mg tablet 100 mg PO DAILY 90 Days Qty: 90 1RF
[2022-07-07 20:40] VITALS: BP 160/62; PULSE 114; RESP 18; O2SAT 96
== END 2022-07-07 21:02 | disposition home or self-care (01) ==
PROVIDERS: Nurse Practitioner Family; Physician Assistant Medical; Emergency Provider Emergency Medicine; PCP Family Medicine
DX: N13.2 Hydronephrosis with renal and ureteral calculous obstruction (principal); Z20.822 Contact with and (suspected) exposure to COVID-19
CPT/HCPCS: 36415; 74176; 80053; 81001; 85025; 87635; 96361; 96374; 96375; 99283; 99284; J1170; J2405

== ENCOUNTER → 2022-07-08 11:28 | Outpatient (BNVA) | payer MEDICARE, MEDICAID, SELFPAY | PROVIDERS: PCP Family Medicine; Visit Provider Nurse Practitioner Family | DX: N13.2 Hydronephrosis with renal and ureteral calculous obstruction (principal) | CPT/HCPCS: Q3014 ==

== ENCOUNTER 2022-07-12 13:04 | Day surgery (SDC) | payer MEDICARE, MEDICAID, SELFPAY ==
[2022-07-12] VITALS (7 sets, daily range): BP systolic 106–138; BP diastolic 65–87; PULSE 65–77; RESP 15–17; TEMP 36.1–36.8; O2SAT 94–100; BMI 20.7
--- NOTE | 2022-07-12 15:54 | HO.ANESPROP2 ---
HPI - Anesthesia Eval Consult details Narrative: 57 F for cystoscopy back pain with radiation to b/l LE , also has some weakness and tingling b/l LE PMFSH Active Problems Active Problems: All Active Problems (Updated 07/08/22 @ 13:26 by BRENDA Jeff) Nephrolithiasis (Acute) Hydronephrosis with renal and ureteral calculous obstruction (Acute) Past Medical History Medical History (Updated 07/08/22 @ 13:26 by BRENDA Jeff) Anxiety and depression Back pain Bolanos esophagus Hydronephrosis with renal and ureteral calculous obstruction Renal calculi Functional capacity: uses cane/walker Family History Family history of problems with anesthesia: No Surgical History Surgical History (Updated 07/12/22 @ 13:16 by Donna Hawley RN) H/O colonoscopy History of esophagogastroduodenoscopy (EGD) History of loop electrical excision procedure (LEEP) Hx of cystoscopy Hx of tubal ligation History of Problems with Anesthesia: No Social History Social History Patient Tobacco Use Status: Current everyday Tobacco user Tobacco use type: Cigarette Cigarettes Per Day: 10 Use of substances other than those prescribed or required for medical reasons: Yes Substance Use Frequency: Daily Are you DNR?: No Advance Directives: No Advance Directives Information Provided: Yes Advance Directives Date on File: 01/19/21 Meds Allergies Allergy/AdvReac Type Severity Reaction Status Date / Time morphine [MORPHINE] Allergy Intermediate NAUSEA & Verified 07/08/22 12:12 VOMITING Penicillins [PENICILLINS] Allergy Intermediate rash/swelli Verified 07/08/22 12:12 ng sulfamethoxazole Allergy Intermediate RASH Verified 07/08/22 12:12 [From BACTRIM] tamsulosin [From FLOMAX] Allergy Intermediate RASH Verified 07/08/22 12:12 trimethoprim [From BACTRIM] Allergy Intermediate RASH Verified 07/08/22 12:12 hydrochlorothiazide [Maxzide] Allergy Mild Rash Verified 07/08/22 12:12 triamterene [Maxzide] Allergy Mild Rash Verified 07/08/22 12:12 terazosin Allergy Swelling Verified 07/08/22 12:12 Exam Exam Date and Time: July 12, 2022 [id number] Height,Weight and Vital Signs: Height 5 ft 1 in Weight 49.895 kg Last Vital Signs Temp 98.1 F 07/12/22 13:23 Pulse 67 07/12/22 13:23 Resp 15 07/12/22 13:23 BP 106/65 07/12/22 13:23 Pulse Ox 94 07/12/22 13:23 O2 Del Method 07/12/22 13:23 Airway Mallampati Class: III TM Dist: >3cm Neck ROM: Full Loose/Missing/Broken Teeth: Yes (Extremly poor dentition globally ) Heart: S1,S2 Lungs: b/l breath sounds Assessment and Plan Assessment Anesthesia Assessment: Anesthesia Plan Discussed and Chart Reviewed Final Anesthetic Review Family History of Problems with Anesthesia: No History of Problems with Anesthesia: No NPO: Yes ASA Class: III Final Preanesthetic Review: Meds/Allgs Chart Reviewed, Consent Obtained/Reviewed and Anes Risks/Benef Reviewed Patient Risk: High Procedure Risk: Intermediate Anesthetic Plan Anesthetic Plan: GA Disposition: Standard PACU
--- NOTE | 2022-07-12 16:49 | P.HPSUR_ITS ---
Pre-Procedural Eval Section A Date of Service: 07/12/22 The patient is an INPATIENT: No Changes since office visit: No Cold of Flu in the past 2 weeks, No New Medical Problems, No Changes in Medication and No Patient answered all questions The History & Physical has been completed within 30 days and I have reviewed it.: Yes Section B Chief Complaint: Calculus of kidney Allergies: Allergies Allergy/AdvReac Type Severity Reaction Status Date / Time morphine [MORPHINE] Allergy Intermediate NAUSEA & Verified 07/08/22 12:12 VOMITING Penicillins [PENICILLINS] Allergy Intermediate rash/swelli Verified 07/08/22 12:12 ng sulfamethoxazole Allergy Intermediate RASH Verified 07/08/22 12:12 [From BACTRIM] tamsulosin [From FLOMAX] Allergy Intermediate RASH Verified 07/08/22 12:12 trimethoprim [From BACTRIM] Allergy Intermediate RASH Verified 07/08/22 12:12 hydrochlorothiazide [Maxzide] Allergy Mild Rash Verified 07/08/22 12:12 triamterene [Maxzide] Allergy Mild Rash Verified 07/08/22 12:12 terazosin Allergy Swelling Verified 07/08/22 12:12 Review of Systems Sugical H&P ROS: Negative: Constitution, Cardiovascular, Respiratory, Neurological, Psychiatric, Hem-Onc, Allergic/Immunologic, Gastrointestinal, Genitourinary, Musculoskeletal, Integumentary, Endocrine and Eyes/Ears /Nose/Throat Exam Surgical H&P Exam: Normal: HEENT, Normal: Heart, Normal: Lungs, Normal: Extremities, Normal: Abdomen, Normal: Skin and Normal: Neurological Plan Diagnosis/Plan: Unchanged ( cystoscopy, left retrograde, left ureteroscopy with laser lithotripsy stent placement) I have reviewed the history and physical and performed a pertinent physical examination on my patient. No changes have occurred unless specified. Time Spent With Patient Time: Total time managing care of this patient today ____ minutes.
[2022-07-12] MEDS: Ketorolac Tromethamine 15 MG/ML VIAL IVPUSH (16:58)
[2022-07-12] MEDS: levoFLOXacin 500 MG TABLET PO (17:05)
[2022-07-12] MEDS: Acetaminophen 1,000 MG/100 ML PIGGYBACK 400 MG IV (17:06)
--- NOTE | 2022-07-12 18:12 | P.OP_ITS ---
Operative Note Operative Note Date of Service: 07/12/22 Narrative: PreOperative Diagnosis: left distal ureteric stone Post Operative Diagnosis: left distal ureter stone Procedure: - cystoscopy, left retrograde - left dilatation of ureteric orifice under fluoroscopy - left ureteroscopy, laser lithotripsy, stone basketing - left stent placement Surgeon: Dr Samuel Gee Anesthesia: General Indications for procedure: distal left ureter external with proximal hydroureteronephrosis and persistent symptomatology Procedure: After informed consent was verified patient was brought to the operating placed in supine position. Anesthesia was administered per protocol. Patient was placed in modified dorsal lithotomy position and prepped and draped in a sterile fashion. Safety pause time-out and side of surgery confirmed. Antibiotics confirmed. A 22 [place] cystoscope was inserted per urethra. Bladder was normal in its entirety. Both ureteric orifices were in normal position. The left ureteric orifice was cannulated and a retrograde examination was performed. filling defects seen proximally 8-9 cm from the ureter orifice. Proximal hydroureteronephrosis . A Sensor guidewire was placed up to the level of the renal pelvis under fluoroscopy. The rigid cystoscope was removed. A Eli dilator was placed over the Sensor guidewire and used to dilate the ureteric orifice under fluoroscopy. The dilator was removed. The semi rigid ureteral scope was placed alongside the Sensor guidewire. Stone was encountered. Holmium laser fiber was used to break the stone into small pieces. Sure catch basket was used to remove stone fragments. The ureter was checked proximally and seen to be mildly dilated. A 6 [place] by 24 cm double-J stent was placed into the renal pelvis and bladder under a combination of fluoroscopy and direct visualization. The bladder was emptied. The patient tolerated the procedure well and was extubated in the operating room, and transferred in stable condition to the recovery area. Pathology: Stones Drains: double-J stent as above
[2022-07-12] MEDS: Phenazopyridine HCL 100 MG TABLET PO (18:52)
[2022-07-12] MEDS: traMADoL HCL 50 MG TABLET PO (18:53)
[2022-07-16 18:08] LABS: Stone Source LEFT URETERAL STONE
== END 2022-07-12 19:02 | disposition home or self-care (01) ==
PROVIDERS: PCP Family Medicine; Visit Provider Urology
PROC: (CPT 52356; principal; 2022-07-12 14:40)
DX: N13.2 Hydronephrosis with renal and ureteral calculous obstruction (principal); Z87.442 Personal history of urinary calculi; F41.8 Other specified anxiety disorders; K22.70 Barrett's esophagus without dysplasia; Z79.899 Other long term (current) drug therapy; Z88.0 Allergy status to penicillin; Z88.2 Allergy status to sulfonamides; Z88.8 Allergy status to other drugs, medicaments and biological substances; F17.210 Nicotine dependence, cigarettes, uncomplicated
CPT/HCPCS: 52356; 52352; 82365; 88300; C1758; C1769; C2617; J0131; J1885; J2250; J3010; Q9967

== ENCOUNTER 2022-07-21 11:00 | Outpatient (AMB) | payer MEDICARE, MEDICAID, SELFPAY ==
--- NOTE | 2022-07-21 11:13 | A.OFFVIS_ITS ---
Intake Intake Visit Reasons: Post op stent removal Intake Note: pt presents to office for cysto with stent removal, pt states has been in severe pain since stent placed. Park Superintendent Required: No Allergies methenamine Allergy (Severe, Verified 05/17/23 11:24) mouth sores morphine [MORPHINE] Allergy (Intermediate, Verified 05/17/23 11:24) NAUSEA & VOMITING Penicillins [PENICILLINS] Allergy (Intermediate, Verified 05/17/23 11:24) rash/swelling sulfamethoxazole [From BACTRIM] Allergy (Intermediate, Verified 05/17/23 11:24) RASH tamsulosin [From FLOMAX] Allergy (Intermediate, Verified 05/17/23 11:24) RASH trimethoprim [From BACTRIM] Allergy (Intermediate, Verified 05/17/23 11:24) RASH hydrochlorothiazide [Maxzide] Allergy (Mild, Verified 05/17/23 11:24) Rash triamterene [Maxzide] Allergy (Mild, Verified 05/17/23 11:24) Rash terazosin Allergy (Verified 05/17/23 11:24) Swelling nitrofurantoin Adverse Reaction (Intermediate, Uncoded 05/17/23 11:24) painful wrists HPI HPI Comments History of Present Illness Details Maxine is a peasent 57 year old female patient who is a patient of Dr. Bravo. She is being seen today via telehealth for her history of nephrolithiasis. Patient reports she was in the ER yesterday 07-07-22 for over 11 hours for left-sided flank and abdominal pain. She reports knowing she had a kidney stone as this is the pain she has had in the past. When asked patient reports to be soing much better today with PRN medication that was given to her from the ER. Patient denies having seen or passed stone. She reports her hematuria over the last 3 or 4 days has since subsided. Unable to give aplha glynn as patient reports several allergies to have taken them in the past. In discussion with the patient today she reports being unable to follow-up from her last appointment with Dr. Gee from last year. She reports having lost her fiancee as well as her mother and going through other health issues with parasites. She reports she had been doing better up until the last few days when she ended up in the ER. Patient mentions she has had a difficult time staying on track with her appointments and medication regimen as she has been going through a difficult time. She reports focusing more on her mental health with therapy. CT results reviewed with patient discussed 6mm left ureteral calculus associated with hydronephrosis. Here for removal of indwelling stent Left side Nephrolithiasis/Urolithiasis:? Last procedure 01/12 ureteroscopy ? They are here for further evaluation of nephrolithiasis. ? Urolithiasis was diagnosed 08/12 [facility] [place] with bilateral distal stones. ? The patient previously had kidney stones whose composition w 08/12 , calcium oxalate - dihydrate, calcium phosphate - hydroxyapatite - 07/15 carbonate apatite 85%, triple phos 15% ? Laboratory investigations include no recent labs. ? 24 Hour urine evaluation 09/12 , Low Urine volume < 2.0 liters, Low calcium < 200, High Citrate, Low Oxalate < 30, low sodium. ? Prior treatment(s) include 08/12 bilateral USR - 01/12? left mid ureteric stone with USR ? Prior imaging includes 03/12 , a renal ultrasound 2mm stone on left ? 07/12 , a CT (computed tomography) scan of the abdomen/pelvis (stone protocol), 3mm stone distal left ureter with hydronephrosis ? 10/11 , a renal ultrasound, showing no evidence of stones ? 04/13 , a renal ultrasound 8mm Left stone - 02/11 renal ultrasound no evidence of stones, hydronephrosis resolved -07/07- CT- Obstructing 6 mm distal left ureteral calculus with associated hydronephrosis. [facility] Medical History Hydronephrosis with renal and ureteral calculous obstruction Back pain Anxiety and depression Renal calculi Bolanos esophagus Surgical History History of surgery History of loop electrical excision procedure (LEEP) Hx of tubal ligation History of esophagogastroduodenoscopy (EGD) H/O colonoscopy Hx of cystoscopy Family History Mother Dementia Father Myocardial infarction Social History (Updated 05/17/23 @ 11:24 by Austin Diez) Housing: House Alcohol intake: current Alcohol intake frequency: holidays/special occasions only Patient Tobacco Use Status: Current everyday Tobacco user Tobacco use type: Cigarette e-Cigarette/Vaping Use: Never Used Second Hand Smoke Exposure: Yes Substance Use Type: Marijuana Do you feel safe in your current relationship?: No Current Relationship Advance Directives Date on File: 01/19/21 Do you have thoughts of harming others: None Do you have a plan to hurt others: No Plan Patient : No service: No Current occupational status: employed Cognitive needs: No Hearing needs: No Vision needs: No Office Procedures Cystoscopy Consent Discussed risk and benefit or proposed procedure with the patient. Information consent for procedure given to the patient. Discussed technical aspects, risks, benefits and alternatives in full. Addressed all of the patient's questions and concerns regarding the procedure. The patient demonstrated knowledge and understanding. They wish to proceed with this procedure. Preparation The patient was prepped in the usual manner. A slasher runner was present and in the room. Genitalia was prepped with betadine solution in a sterile manner. Lidocaine Jelly 2% was placed into the urethra and 16Fr flexible Olympus cystoscope was inserted into the meatus after adequate lubrication. Procedure A well lubricated 16 Hungarian cystoscope was placed No abnormality noted of urethra during placement Indwelling stent seen within bladder emerging from left ureteric orifices The stent was grasped with a 3 prong grasper and removed without difficulty The patient tolerated the procedure well [id number] with stent removal Procedure code (CPT) selection complete Office Meds lidocaine HCl 2 % mucosal jelly in applicator Performing Provider: Samuel Gee MD Performing Location: [facility] [place] [facility] Administered by: Sonia Rodrigez RN on 07/21/22 11:14 Dose Route Admin Location Dispensed Lot Number Expiration Date [facility] [employer] 10 mL intra-urethral 10 mL naproxen 500 mg tablet Performing Provider: Samuel Gee MD Performing Location: [facility] [place] [facility] Administered by: Sonia Rodrigez RN on 07/21/22 11:14 Dose Route Admin Location Dispensed Lot Number Expiration Date [facility] [employer] 500 mg PO 1 tab ciprofloxacin HCl 500 mg tablet Performing Provider: Samuel Gee MD Performing Location: [facility] [place] [facility] Administered by: Sonia Rodrigez RN on 07/21/22 11:14 Dose Route Admin Location Dispensed Lot Number Expiration Date [facility] [employer] 500 mg PO 1 tab Assessment & Plan Assessment & Plan (1) Nephrolithiasis: Code(s): N20.0 - Calculus of kidney (2) Hydronephrosis with renal and ureteral calculous obstruction: Code(s): N13.2 - Hydronephrosis with renal and ureteral calculous obstruction Plan Three month follow-up Orders: Orders AMB Cystoscopy 07/21/22 N13.2 - Hydronephrosis with renal and ureteral calculous obstruction US renal BI 3 Months N20.0 - Calculus of kidney Medications: New methenamine hippurate 1 g PO DAILY 90 tabs 1RF 90 days N20.0 - Calculus of kidney, N39.0 - Urinary tract infection, site not specified ascorbic acid (vitamin C) 1 g PO DAILY 90 tabs 1RF 90 days N20.0 - Calculus of kidney, N39.0 - Urinary tract infection, site not specified Patient Instructions: Imaging studies, laboratory and physical exam results were discussed and reviewed in detail. No major barriers to patient understanding were identified. An opportunity to ask questions regarding the treatment plan was provided. All questions were answered. The patient expressed understanding and agreement with the above treatment plan. The patient is aware they should contact our office by phone for worsening of their current condition or the appearance of new urologic symptoms. Compliance is encouraged with any medications and followup testing that is ordered. It is a privilege to participate in the urologic care of your patient. If you have any questions or concerns regarding treatment for the above conditions, or other urologic issues, please do not hesitate to contact me. The office te alex contact is [phone]. This note is constructed using voice recognition software. While every effort has been made to ensure accuracy sales support consultant errors may have been included. Yours sincerely, Dr Samuel Gee MD, [facility] - Urology Providers of Expert, Compassionate Care for the Genitourinary System Coding Level of Care Code Est Pt Level 3 (75418) Diagnoses Nephrolithiasis N20.0 Hydronephrosis with renal and ureteral calculous obstruction N13.2 CPT Codes Cystoscopy - CPT: [id number] with stent removal ([id number])
== END 2022-07-21 12:05 | disposition home or self-care (01) ==
LOC: HO.HUSH 11:00
PROVIDERS: PCP Family Medicine; Visit Provider Urology
DX: N13.2 Hydronephrosis with renal and ureteral calculous obstruction (principal); N20.0 Calculus of kidney; N39.0 Urinary tract infection, site not specified; Z96.0 Presence of urogenital implants
CPT/HCPCS: 52310; 99213

== ENCOUNTER → 2022-07-21 | Outpatient (BNVA) | payer MEDICARE, MEDICAID, SELFPAY | PROVIDERS: PCP Family Medicine; Visit Provider Urology | DX: Z48.816 Encounter for surgical aftercare following surgery on the genitourinary system (principal) | CPT/HCPCS: 52310; 99212 ==

== ENCOUNTER → 2022-10-22 12:58 | Outpatient (BNVA) | payer MEDICARE, MEDICAID, SELFPAY | PROVIDERS: PCP Family Medicine; Visit Provider Urology | DX: N20.0 Calculus of kidney (principal) | CPT/HCPCS: 99212 ==

== ENCOUNTER 2023-03-22 13:22 | Emergency (ER) | payer OTHER, MEDICAID, SELFPAY ==
--- NOTE | ~2023-03-22 | CT_ITS ---
EXAMINATION: CT ABDOMEN AND PELVIS WITHOUT CONTRAST CLINICAL INFORMATION: Left flank pain. COMPARISON: CT scan of the abdomen and pelvis dated 07/07/2022. TECHNIQUE: Multidetector volumetric imaging was performed from the superior aspect of the liver through the pubic symphysis. Sagittal and coronal reformatted images were obtained on the technologist's workstation. Lack of intravenous and oral contrast limits visceral evaluation. This CT examination was performed using dose optimization techniques as appropriate, variously including the following: *Automated exposure control *Adjustment of mA and/or kV according to patient size (this includes techniques or standardized protocols for targeted exams where dose is matched to indication/reason for exam; i.e. extremities or head) *Use of iterative reconstruction technique DLP: 307 mGy-cm FINDINGS: LUNG BASES: The visualized lung bases are unremarkable. LIVER, GALLBLADDER, AND BILIARY TREE: Unremarkable. PANCREAS: Unremarkable. SPLEEN: Unremarkable. ADRENAL GLANDS: Unremarkable. KIDNEYS AND URETERS: Punctate nonobstructing intrarenal calculi bilaterally. No hydroureteronephrosis. BLADDER: Unremarkable. GASTROINTESTINAL TRACT: The stomach and small bowel are unremarkable. The appendix is not confidently identified. No evidence for acute appendicitis. The colon and rectum are unremarkable. ABDOMINAL WALL: No significant hernia is appreciated. LYMPH NODES: Asymmetric increased left inguinal lymph nodes. A energy conservation representative lymph node laterally measures 1.5 cm in short axis (image 25, series 7). VASCULAR: Unremarkable. PELVIC VISCERA: Unremarkable. OSSEOUS STRUCTURES: Mild lumbar levoscoliosis. L5-S1 severe degenerative disc disease, grade 1 anterolisthesis and spondylolysis. No acute/suspicious abnormality. CT/CT abdomen pelvis wo IV con IMPRESSION: 1. Punctate nonobstructing intrarenal calculi bilaterally. No hydroureteronephrosis. 2. Asymmetric increased left inguinal lymph nodes are nonspecific. These could be reactive to an infectious/inflammatory process. Malignancy cannot be excluded. Further evaluation with biopsy is recommended. 3. L5-S1 severe degenerative disc disease, grade 1 anterolisthesis and spondylolysis similar to the previous study.
[2023-03-22 13:25] VITALS: BP 147/87; PULSE 89; RESP 20; TEMP 36.9; O2SAT 97; BMI 20.6
--- NOTE | 2023-03-22 13:26 | ED.GENADULT ---
HPI - General Adult General Chief complaint: Abdominal Pain Stated complaint: Kidney stone Time Seen by Provider: 03/22/23 14:15 Source: patient Mode of arrival: ambulatory Limitations: no limitations History of Present Illness HPI narrative: Patient with left flank pain for 4 days, nausea. No dysuria, difficulty urinating Onset (ago): hour(s) Related Data Previous Rx's Medication Instructions Recorded ondansetron 4 mg disintegrating 4 mg PO Q8H PRN nausea and 07/07/22 tablet vomiting #14 tabs naproxen 500 mg tablet 500 mg PO BID PRN pain 7 days #14 07/12/22 tabs naproxen 500 mg tablet 500 mg PO BID PRN pain 7 days #14 07/12/22 tabs oxybutynin chloride 5 mg 5 mg PO DAILY 14 days #14 tabs 07/13/22 tablet,extended release 24 hr estradiol 10 mcg vaginal tablet 10 mcg vaginal 2XW 30 days #9 tabs 11/25/22 (Vagifem) naproxen 500 mg tablet (Naprosyn) 500 mg PO BID #20 tabs 03/22/23 Allergies Allergy/AdvReac Type Severity Reaction Status Date / Time methenamine Allergy Severe mouth sores Verified 11/25/22 11:23 morphine [MORPHINE] Allergy Intermediate NAUSEA & Verified 11/25/22 11:23 VOMITING Penicillins [PENICILLINS] Allergy Intermediate rash/swelli Verified 11/25/22 11:23 ng sulfamethoxazole Allergy Intermediate RASH Verified 11/25/22 11:23 [From BACTRIM] tamsulosin [From FLOMAX] Allergy Intermediate RASH Verified 11/25/22 11:23 trimethoprim [From BACTRIM] Allergy Intermediate RASH Verified 11/25/22 11:23 hydrochlorothiazide [Maxzide] Allergy Mild Rash Verified 11/25/22 11:23 triamterene [Maxzide] Allergy Mild Rash Verified 11/25/22 11:23 terazosin Allergy Swelling Verified 11/25/22 11:23 nitrofurantoin AdvReac Intermediate painful Uncoded 11/25/22 11:23 wrists PMFSH Past Medical History Medical History Anxiety and depression Back pain [place] esophagus Hydronephrosis with renal and ureteral calculous obstruction Renal calculi Surgical History H/O colonoscopy History of esophagogastroduodenoscopy (EGD) History of loop electrical excision procedure (LEEP) Hx of cystoscopy Hx of tubal ligation Social History Social History Patient Tobacco Use Status: Current everyday Tobacco user Tobacco use type: Cigarette Cigarettes Per Day: 10 Advance Directives: No Advance Directives Information Provided: Yes Advance Directives Date on File: 01/19/21 Physical Exam ED Vital Signs: Vital Signs - 24 hr 03/22/23 13:25 03/22/23 14:15 Temperature 98.5 F 98.6 F Pulse Rate 89 64 Respiratory Rate 20 18 Blood Pressure 147/87 H 127/78 Pulse Oximetry 97 97 Oxygen Delivery Method Room Air Room Air BMI result Body Mass Index 20.6 Course Course Course Narrative: This is a rapid medical exam: Additional HPI, ROS, PE not included below will be deferred to primary provider. Patient is a 57-year-old female with history nephrolithiasis presenting to the emergency department with left flank pain. States she was having an ultrasound at [facility] earlier this morning but exam was discontinued half-way through due to an insurance issue. Complains of nausea, decreased appetite for several days. Unsure if she has had fevers, reports sweating but has not checked temp. Plan: UA, labs Medications Administered Discontinued Medications Generic Name Dose Route Start Last Admin Trade Name Freq PRN Reason Stop Dose Admin Ketorolac Tromethamine 60 mg 03/22/23 14:21 03/22/23 14:41 Ketorolac Tromethamine 60 Mg/2 Ml Vial IM 03/22/23 14:22 60 mg ONCE ONE Administration Ondansetron HCl 4 mg 03/22/23 14:41 03/22/23 14:44 Ondansetron Odt 4 Mg Tab.Rapdis TRANSLINGU 03/22/23 14:42 4 mg ONCE ONE Administration Medical Decision Making Differential Diagnosis Differential Diagnoses: The differential diagnosis associated with the presentation includes (renal colic, UTI, pyelonephritis, renal failure were all considered) Admission/Observation Consideration of admission/observation: Escalation of care including admission/observation considered (Upon arrival patient was considered for admission) Lab Data MDM Lab Attestation statement: I reviewed the patient's lab results. (no elevated wbc, no blood in urine, normal renal function) 03/22/23 14:09 03/22/23 14:09 Labs: Lab Results 03/22/23 03/22/23 03/22/23 Range/Units 14:09 14:09 15:52 WBC 7.7 (4.8-10.8) X10*3/uL RBC 4.16 L (4.20-5.50) X10*6/uL Hgb 12.8 (12.0-16.0) g/dl Hct 38.0 (37.0-47.0) % MCV 91.3 (80.0-98.0) fL MCH 30.8 (27.0-33.0) pg MCHC 33.7 (31.0-35.0) g/dl RDW 13.0 (11.0-16.0) % Plt Count 253 (160-400) X10*3/uL MPV 10.0 (9.4-12.3) fL Immature Gran % (Auto) 0.3 (0.0-0.4) % Neut % (Auto) 63.4 (45-73) % Lymph % (Auto) 28.9 (20-40) % [place] % (Auto) 6.6 (2-11) % Eos % (Auto) 0.3 (0-4) % Baso % (Auto) 0.5 (0-2) % Lymph # (Auto) 2.2 (1.2-4.9) X10*3/uL [place] # (Auto) 0.5 (0.1-1.2) X10*3/uL Eos # (Auto) 0.0 (0.0-0.4) X10*3/uL Baso # (Auto) 0.0 (0.0-0.2) X10*3/uL Abs Immat Gran (auto) 0.02 (0.00-0.03) X10*3/uL Absolute Neuts (auto) 4.9 (2.0-8.3) x10*3/uL Absolute Nucleated RBC 0.000 (0.0-0.012) X10*3/uL Nucleated RBC % (auto) 0.0 (0.0-0.2) /100WBC Sodium 142 (135-145) mmol/L Potassium 4.0 (3.3-5.1) mmol/L Chloride 108 (96-108) mmol/L Carbon Dioxide 27 (22-29) mmol/L Anion Gap 11 L (12-20) BUN 10 (9-16) mg/dL Creatinine 0.74 (0.5-1.4) mg/dL Estim Creat Clear Calc 64.0 Estimated GFR > 60 Random Glucose 95 (60-115) mg/dL Calcium 9.4 (8.4-10.2) mg/dL Total Bilirubin 0.9 (0.0-1.0) mg/dL AST 16 (5-31) U/L ALT 13 (0-31) U/L Alkaline Phosphatase 69 (39-117) U/L Total Protein 6.7 (6.5-8.0) g/dL Albumin 4.2 (3.5-5.0) g/dL Urine Color Yellow Urine Appearance Clear Urine pH 8.0 (5.0-9.0) Ur Specific [place] 1.010 (1.005-1.025) Urine Protein Negative (Neg-Trace) mg/dL Urine Glucose (UA) Negative (Negative) mg/dL Urine Ketones Negative (Negative) mg/dL Urine Blood Negative (Negative) Urine Nitrite Negative (Negative) Ur Leukocyte Esterase Negative (Negative) Independent Interpretation I performed an independent interpretation of an: CT Scan (no left sided hydro no stone) Radiology Impression Discussion of test interpretation with radiology: I have reviewed the radiologist's reading. (left inguinal lymph nodes that need follow up) External Record Review External record reviewed: Prior outpatient labs Prescription Management I considered prescription management with: Pain Medication (no evidence of hydronephrosis) Chronic Conditions Patient?s care impacted by: Other (renal stones) Discharge Plan Discharge Clinical Impression: Abdominal pain, Lymphadenopathy Patient Disposition: Home, Self-Care Instructions: Lymphadenopathy (ED), Abdominal Pain (ED) Prescriptions: New naproxen [Naprosyn] 500 mg tablet 500 mg PO BID Qty: 20 0RF No Action oxybutynin chloride 5 mg tablet extended release 24hr 5 mg PO DAILY 14 Days Qty: 14 0RF estradiol [Vagifem] 10 mcg tablet 10 mcg vaginal 2XW 30 Days Qty: 9 5RF ondansetron 4 mg tablet,disintegrating 4 mg PO Q8H PRN (Reason: nausea and vomiting) Qty: 14 0RF naproxen 500 mg tablet 500 mg PO BID PRN (Reason: pain) 7 Days Qty: 14 0RF naproxen 500 mg tablet 500 mg PO BID PRN (Reason: pain) 7 Days Qty: 14 0RF Referrals: Michelle Ceron FNP [Primary Care Provider] - 5 days
[2023-03-22 14:13] LABS: MANUAL DIFF FLAG NO
[2023-03-22 14:15] VITALS: BP 127/78; PULSE 64; RESP 18; TEMP 37; O2SAT 97
[2023-03-22 14:15] LABS: Basophils Percent Auto 0.5 % (0-2); Eosinophils Percent Auto 0.3 % (0-4); Hemoglobin 12.8 g/dl (12.0-16.0); Imm Gran Abs Auto 0.02 X10*3/uL (0.00-0.03); Imm Gran Pct Auto 0.3 % (0.0-0.4); Lymphocytes Absolute Auto 2.2 X10*3/uL (1.2-4.9); Lymphocytes Percent Auto 28.9 % (20-40); Mean Corpuscular HGB Conc 33.7 g/dl (31.0-35.0); Mean Corpuscular Hemoglobin 30.8 pg (27.0-33.0); Mean Corpuscular Volume 91.3 fL (80.0-98.0); Monocytes Absolute Auto 0.5 X10*3/uL (0.1-1.2); Monocytes Percent Auto 6.6 % (2-11); Neutrophils Absolute Auto 4.9 x10*3/uL (2.0-8.3); Neutrophils Percent Auto 63.4 % (45-73); Platelet Count 253 X10*3/uL (160-400); Red Blood Count 4.16 X10*6/uL (4.20-5.50); White Blood Count 7.7 X10*3/uL (4.8-10.8)
[2023-03-22 14:28] LABS: Alanine Aminotransferase 13 U/L (0-31); Albumin Level 4.2 g/dL (3.5-5.0); Alkaline Phosphatase 69 U/L (39-117); Anion Gap 11 (12-20); Aspartate Amino Transferase 16 U/L (5-31); Bilirubin Total 0.9 mg/dL (0.0-1.0); Blood Urea Nitrogen 10 mg/dL (9-16); Calcium 9.4 mg/dL (8.4-10.2); Carbon Dioxide 27 mmol/L (22-29); Chloride 108 mmol/L (96-108); Estimated Glomerular Filt Rate > 60; Glucose Random 95 mg/dL (60-115); Sodium 142 mmol/L (135-145); Total Protein 6.7 g/dL (6.5-8.0)
[2023-03-22] MEDS: Ketorolac Tromethamine 60 MG/2 ML VIAL IM (14:41)
[2023-03-22] MEDS: Ondansetron ODT 4 MG TAB.RAPDIS TRANSLINGU (14:44)
[2023-03-22 16:01] LABS: Appearance Urine Clear; Color Urine Yellow; Glucose Urine UA Negative (Negative); Leukocyte Esterase Urine Negative (Negative); Nitrite Urine Negative (Negative); Urine Blood Negative (Negative); Urine Ketones Negative (Negative); Urine Protein Negative (Neg-Trace)
--- NOTE | 2023-03-22 16:08 | PC.NURSE ---
pt states minimal pain relief after IM toradol , she reports right deltoid tenderness,at area of injection, not red or swollen. pt awaiting md reassess for disposition
== END 2023-03-22 16:29 | disposition home or self-care (01) ==
PROVIDERS: Registered Nurse Emergency; Emergency Provider Emergency Medicine; PCP Nurse Practitioner Family
DX: R10.9 Unspecified abdominal pain (principal); R11.2 Nausea with vomiting, unspecified; R59.1 Generalized enlarged lymph nodes; Z79.899 Other long term (current) drug therapy
CPT/HCPCS: 36415; 74176; 80053; 81003; 85025; 96372; 99283; 99284; J1885

== ENCOUNTER 2023-04-01 14:43 | Outpatient (REF) | payer OTHER, MEDICAID, SELFPAY ==
--- NOTE | ~2023-04-01 | US_ITS ---
EXAMINATION: US RETROPERITONEAL LIMITED (RENAL ONLY) CLINICAL INFORMATION: Calculus of kidney. COMPARISON: CT abdomen and pelvis 03/22/2023. Renal ultrasound 03/14/2019. TECHNIQUE: Real-time imaging of the kidneys. Technically limited study secondary to bowel gas. FINDINGS: RIGHT KIDNEY: 9.2 x 5.7 x 5.9 cm (SAG x AP x TRV). The kidney is normal in size, contour, and echogenicity. Renal cortical thickness is normal. No calculi or focal parenchymal lesions. No hydronephrosis. LEFT KIDNEY: 9.9 x 5.0 x 4.1 cm (SAG x AP x TRV). The kidney is normal in size, contour, and echogenicity. Renal cortical thickness is normal. No calculi or focal parenchymal lesions. No hydronephrosis. Incidentally noted left extrarenal pelvis. US/US renal BI IMPRESSION: No hydronephrosis or nephrolithiasis..
[2023-04-01 16:33] LABS: Calcium 9.5 mg/dL (8.4-10.2); Phosphorus 3.6 mg/dL (2.7-4.5); Uric Acid 3.7 mg/dL (2.4-5.7)
[2023-04-01 16:49] LABS: Vitamin D 25-OH Total 27.2 ng/mL (>30)
[2023-04-03 12:39] LABS: Calcium (PTHI) 9.3 mg/dL (8.6-10.4); PTHI 35 pg/mL (16-77)
== END 2023-04-01 14:44 | disposition home or self-care (01) ==
LOC: HO.US 14:43
PROVIDERS: PCP Nurse Practitioner Family; Visit Provider Urology
DX: N20.0 Calculus of kidney (principal)
CPT/HCPCS: 36415; 76775; 82306; 82310; 83735; 83970; 84100; 84550

== ENCOUNTER 2023-04-19 10:10 | Outpatient (AMB) | payer OTHER, MEDICAID, SELFPAY ==
--- NOTE | 2023-04-19 10:30 | MHC.PC.OV ---
Vital Signs 04/19/23 10:31 Height 5 ft 1 in Weight 115 lb 4 oz BMI 21.8 BP 122/86 Blood Pressure Location Lt brachial Position Sitting Pulse 76 Pulse Source Pulse Oximeter Pulse Oximetry (%) 98 Oxygen Delivery Method Room Air Intake Visit Reasons: NPV- Requesting [place] Required: No Accompanied by: Self / Same As Patient Allergies methenamine Allergy (Severe, Verified 04/19/23 10:51) mouth sores morphine [MORPHINE] Allergy (Intermediate, Verified 04/19/23 10:51) NAUSEA & VOMITING Penicillins [PENICILLINS] Allergy (Intermediate, Verified 04/19/23 10:51) rash/swelling sulfamethoxazole [From BACTRIM] Allergy (Intermediate, Verified 04/19/23 10:51) RASH tamsulosin [From FLOMAX] Allergy (Intermediate, Verified 04/19/23 10:51) RASH trimethoprim [From BACTRIM] Allergy (Intermediate, Verified 04/19/23 10:51) RASH hydrochlorothiazide [Maxzide] Allergy (Mild, Verified 04/19/23 10:51) Rash triamterene [Maxzide] Allergy (Mild, Verified 04/19/23 10:51) Rash terazosin Allergy (Verified 04/19/23 10:51) Swelling nitrofurantoin Adverse Reaction (Intermediate, Uncoded 04/19/23 10:51) painful wrists Medication List - Last Reconciled 04/19/23 by QUETNIN Roberts No Known Home Meds Tobacco use date assessed: 04/19/23 Dental Screening Dental Screen Date: 04/19/23 Did you have a dental visit in the last 12 months?: Yes Did you have a dental problem in the last 6 months where you did not have access to dental care?: No Was dental information given to patient?: Patient has dentist HPI HPI Comments History of Present Illness Details 58-year-old female new patient presents today to establish care past medical history significant for Bolanos's esophagus, nephrolithiasis and hydronephrosis. Review of the notes patient was seen in the emergency room on 03/22/2023 for an enlarged left inguinal lymph node noted on CT scan. Recommended further evaluation with biopsy. Patient reports that she continues to have enlarged lymph node in left groin with groin pain that radiates down left thigh, patient reports unable to tolerate taking naproxen due to her history of Bolanos's esophagus. Requesting something else for pain. Patient reports she overall does not feel well and states she has nausea, always feels cold and reported she thinks she had a fever last night because she was sweating. Complete blood ordered. Patient also reports history of anxiety and depression, not currently taking any medications. Has been followed by counseling in the past but she does not follow with a counselor at this time, offered referral however patient declined. CT/CT abdomen pelvis wo IV con IMPRESSION: 1. Punctate nonobstructing intrarenal calculi bilaterally. No hydroureteronephrosis. 2. Asymmetric increased left inguinal lymph nodes are nonspecific. These could be reactive to an infectious/inflammatory process. Malignancy cannot be excluded. Further evaluation with biopsy is recommended. 3. L5-S1 severe degenerative disc disease, grade 1 anterolisthesis and spondylolysis similar to the previous study. Previous pcp: Kalie Marquis in [facility] Medical History (Updated 04/20/23 @ 12:43 by QUENTIN Roberts) Hydronephrosis with renal and ureteral calculous obstruction Back pain Anxiety and depression Renal calculi Bolanos esophagus Surgical History History of loop electrical excision procedure (LEEP) Hx of tubal ligation History of esophagogastroduodenoscopy (EGD) H/O colonoscopy Hx of cystoscopy Family History (Updated 04/19/23 @ 11:07 by QUENTIN Roberts) Mother Dementia Father Myocardial infarction Social History (Updated 04/19/23 @ 11:07 by QUENTIN Roberts) Housing: House Alcohol intake: current Alcohol intake frequency: holidays/special occasions only Patient Tobacco Use Status: Current everyday Tobacco user Tobacco use type: Cigarette Cigarettes Per Day: 10 e-Cigarette/Vaping Use: Never Used Substance Use Type: Marijuana Advance Directives Date on File: 01/19/21 service: No Current occupational status: employed Cognitive needs: No Hearing needs: No Vision needs: No Questionnaire PHQ-9 Over the last 2 weeks, how often have you been bothered by any of the following problems? 1. Little interest or pleasure in doing things: not at all 2. Feeling down, depressed, or hopeless: not at all 3. Trouble falling or staying asleep, or sleeping too much: not at all 4. Feeling tired or having little energy: not at all 5. Poor appetite or overeating: not at all 6. Feeling bad about yourself - or that you are a failure or have let yourself or your family down: not at all 7. Trouble concentrating on things, such as reading the newspaper or watching television: not at all 8. Moving or speaking so slowly that other people could have noticed. Or the opposite - being so fidgety or restless that you have been moving around a lot more than usual: not at all 9. Thoughts that you would be better off or of hurting yourself in some way: not at all Total score: 0 Depression Screening Interpretation: Negative 21573 - PHQ-9 Billing: Yes Source: Developed by Drs. Bridger Oliver, Sandhya Blackmon, Fadi Mason and colleagues, with an educational parul from [employer]. Thrive Questionnaire Date Thrive assessed: 04/19/23 I am a: Patient What is your living situation today?: I have a steady place to live Within the past 12 months, did the food you bought not last and you didn't have the money to get more?: Never true Within the past 12 months, did you worry whether your food would run out before you got money to buy more?: Never true Do you have trouble paying for medicines?: No Do you have trouble getting transportation to medical appointments?: No Do you have trouble paying your heating and electricity bill?: No Do you have trouble taking care of your child, family member or friend?: No Do you have trouble with day-to-day activities such as bathing, preparing meals, shopping, managing finances, etc.?: No Are you currently unemployed and looking for a job?: No Are you interested in more education?: No Please select the resources that you would like help with: None Currently or been in a relationship where the following occur: no concerns reported AUDIT C Alcohol Use Questionnaire (AUDIT-C) 1. How often do you have a drink containing alcohol?: Never Total Score: 0 DELORES-7 AMB Questionnaire DELORES-7 Date DELORES - 7 assessed: 04/19/23 Feeling nervous, anxious, or on edge: 0 = Not at all Not being able to stop or control worryin = Not at all Worrying too much about different things: 0 = Not at all Trouble relaxin = Not at all Being so restless that it is hard to sit still: 0 = Not at all Becoming easily annoyed or irritable: 0 = Not at all Feeling afraid as if something awful might happen: 0 = Not at all Total DELORES-7 score (0-4 normal; 5-9 mild; 10-14 moderate; 15-21 severe): 0 Source: Developed by Drs. Bridger Oliver, Sandhya Blackmon, Fadi Mason and colleagues, with an educational parul from [employer]. DELORES-7 Assessment Billing DELORES-7 Assessment Tool: DELORES-7 Assessment 16950 Review of Systems Const Denies chills, Denies fatigue, Denies fever(s) and Denies poor appetite Eyes Denies no additional complaints ENT Reports Normal hearing present Card Denies chest pain, Denies syncope, Denies rapid heart rate and Denies dyspnea Resp Denies cough and Denies dyspnea GI Denies change in stool character, Denies constipation, Denies diarrhea, Denies nausea and Denies vomiting Denies urinary frequency, Denies dysuria and Denies urinary urgency Neuro Reports Normal hearing present, Denies confusion and Denies syncope Psych Denies confusion Endo Denies fatigue Magen/Lymph Reports lymphadenopathy (left groin ) Physical exam (Primary Care) Vital Signs: Last Vital Signs Pulse 76 04/19/23 10:31 BP 122/86 04/19/23 10:31 Pulse Ox 98 04/19/23 10:31 Oxygen Delivery Method Room Air 04/19/23 10:31 BMI result Body Mass Index 21.8 Tobacco/Smoking Status: Tobacco use Status Tobacco use date assessed 04/19/23 04/19/23 10:35 Patient Tobacco Use Status Current everyday Tobacco 04/19/23 11:07 Tobacco use type Cigarette 04/19/23 11:07 e-Cigarette/Vaping Use Never Used 04/19/23 11:07 PHQ-9: PHQ-9 Score PHQ-9: Total score 0 04/19/23 11:30 Depression Screening Interpretation: Negative Thrive Assessment: Date of Thrive Assessment Date Thrive assessed 04/19/23 04/19/23 10:35 Currently or been in a relationship where the following occur: no concerns reported Const General: No confusion Orientation/consciousness: No confusion HENMT Head: Yes normocephalic and Yes atraumatic Eyes Conjunctivae: conjunctivae normal Chest Chest palpation & inspection: normal inspection of the chest Resp Effort & Inspection: normal respiratory effort Auscultation: clear to auscultation bilaterally, no crackles, no rhonchi and no wheezes Cardio Rate: regular rate Rhythm: regular rhythm Heart sounds: S1 normal heart sound present and S2 normal heart sound present GI Inspection: Yes normal to inspection Palpation (GI): Other GI palpation findings present (left inguinal lymphadenopathy. ) Neuro General: No confusion Cranial nerves: Yes Normal hearing present Extrem General: No edema Assessment and Plan Assessment & Plan (1) Enlarged lymph node: Comment: left groin Code(s): R59.9 - Enlarged lymph nodes, unspecified Plan: Urgent referral entered to General surgery and Oncology for furthure evaluation with biopsy. Given patient reports unable to tolerate naproxen or NSAID medication related to history of Bolanos's esophagus. Extra-strength Tylenol 1000 mg q.i.d. p.r.n. sent to patient's pharmacy for groin pain. Do not exceed 4000 mg of Tylenol in 24 hours. (2) Nephrolithiasis: Code(s): N20.0 - Calculus of kidney Plan: Continue to follow With Dr. Gee (3) Bolanos esophagus: Code(s): K22.70 - Bolanos's esophagus without dysplasia Plan: Continue to follow with gastroenterology Dr. Barksdale. Orders: Orders Complete Blood Count Auto Diff 04/19/23 Z13.0 - Encounter for screening for diseases of the blood and blood-forming organs and certain disorders involving the immune mechanism Comprehensive [place]. Panel Fast 04/19/23 R59.9 - Enlarged lymph nodes, unspecified Lipid Panel 04/19/23 Z13.220 - Encounter for screening for lipoid disorders TSH reflex Free T4 04/19/23 Z13.29 - Encounter for screening for other suspected endocrine disorder Referrals Hematology & Oncology Referral R59.9 - Enlarged lymph nodes, unspecified General Surgery Referral R59.9 - Enlarged lymph nodes, unspecified Medications: New acetaminophen (Tylenol Extra Strength) Do not exceed 4,000mg of tylenol per day. 1,000 mg (2 x 500 mg) PO QID PRN 180 tabs 3RF pain R10.30 - Lower abdominal pain, unspecified Coding Level of Care Code New Pt Level 3 (24007) Diagnoses Enlarged lymph node R59.9 Nephrolithiasis N20.0 Bolanos esophagus K22.70 Additional Codes DELORES-7 Assessment Billing - DELORES-7 Assessment Tool: DELORES-7 Assessment 51118 ([id number])
[2023-04-19 10:31] VITALS: BP 122/86; PULSE 76; O2SAT 98; BMI 21.8
== END 2023-04-19 11:21 | disposition home or self-care (01) ==
PROVIDERS: PCP Nurse Practitioner Family; Visit Provider Nurse Practitioner Family
DX: R59.9 Enlarged lymph nodes, unspecified (principal); N20.0 Calculus of kidney; K22.70 Barrett's esophagus without dysplasia
CPT/HCPCS: 99203

== ENCOUNTER 2023-04-22 10:03 | Outpatient (AMB) | payer OTHER, MEDICAID, SELFPAY ==
--- NOTE | 2023-04-22 10:42 | A.OFFVIS_ITS ---
Intake Intake Visit Reasons: 6M US/LABS(set) Intake Note: Patient is Present for Follow Up Ultrasound Urology Medication: Oxybutynin (Patient is not taking estradiol cream) Antibiotic Allergies: Methanamine, Penicillins, Sulfa, Trimethroprim, Macrobid Blood Thinners:None Pharmacy: [facility] Allergies methenamine Allergy (Severe, Verified 04/22/23 10:45) mouth sores morphine [MORPHINE] Allergy (Intermediate, Verified 04/22/23 10:45) NAUSEA & VOMITING Penicillins [PENICILLINS] Allergy (Intermediate, Verified 04/22/23 10:45) rash/swelling sulfamethoxazole [From BACTRIM] Allergy (Intermediate, Verified 04/22/23 10:45) RASH tamsulosin [From FLOMAX] Allergy (Intermediate, Verified 04/22/23 10:45) RASH trimethoprim [From BACTRIM] Allergy (Intermediate, Verified 04/22/23 10:45) RASH hydrochlorothiazide [Maxzide] Allergy (Mild, Verified 04/22/23 10:45) Rash triamterene [Maxzide] Allergy (Mild, Verified 04/22/23 10:45) Rash terazosin Allergy (Verified 04/22/23 10:45) Swelling nitrofurantoin Adverse Reaction (Intermediate, Uncoded 04/22/23 10:45) painful wrists Medication List - Last Reconciled 04/22/23 by Samuel Gee MD acetaminophen (Tylenol Extra Strength) 1,000 mg (2 x 500 mg) PO QID PRN HPI HPI Comments History of Present Illness Details Maxine is a pleasant female. She is a patient of Dr. Chino. She is seen for the following urologic conditions - recurrent nephrolithiasis Renal ultrasound negative Stopped suppression antibiotics Continue with lemon juice and surveillance imaging Nephrolithiasis/Urolithiasis:? Last procedure 07/15 left ureteroscopy ? They are here for further evaluation of nephrolithiasis. ? Urolithiasis was diagnosed 08/12 [facility] with bilateral distal stones. ? The patient previously had kidney stones whose composition w 08/12 , calcium oxalate - dihydrate, calcium phosphate - hydroxyapatite - 07/15 carbonate apatite 85%, triple phos 15% ? Laboratory investigations include - 07/15 Ca 9.7, 04/16 normal stone labs ? 24 Hour urine evaluation 09/12 , Low Urine volume < 2.0 liters, Low calcium < 200, High Citrate, Low Oxalate < 30, low sodium. ? Prior treatment(s) include 08/12 bilateral USR - 01/12? left mid ureteric stone with USR - 07/15 left ureteroscopy ? Prior imaging includes 03/12 , a renal ultrasound 2mm stone on left ? 07/12 , a CT (computed tomography) scan of the abdomen/pelvis (stone protocol), 3mm stone distal left ureter with hydronephrosis ? 10/11 , a renal ultrasound, showing no evidence of stones ? 04/13 , a renal ultrasound 8mm Left stone - 02/11 renal ultrasound no evidence of stones, hydronephrosis resolved -07/15 - CT- Obstructing 6 mm distal left ureteral calculus with associated hydronephrosis. - 10/14 renal ultrasound possible punctate stone left side - 04/16 renal ultrasound no evidence of stones PFSH Medical History (Updated 04/20/23 @ 12:43 by QUENTIN Roberts) Hydronephrosis with renal and ureteral calculous obstruction Back pain Anxiety and depression Renal calculi Bolanos esophagus Surgical History History of loop electrical excision procedure (LEEP) Hx of tubal ligation History of esophagogastroduodenoscopy (EGD) H/O colonoscopy Hx of cystoscopy Family History (Updated 04/19/23 @ 11:07 by QUENTIN Roberts) Mother Dementia Father Myocardial infarction Social History (Updated 04/19/23 @ 11:07 by QUENTIN Roberts) Housing: House Alcohol intake: current Alcohol intake frequency: holidays/special occasions only Patient Tobacco Use Status: Current everyday Tobacco user Tobacco use type: Cigarette Cigarettes Per Day: 10 e-Cigarette/Vaping Use: Never Used Substance Use Type: Marijuana Advance Directives Date on File: 01/19/21 service: No Current occupational status: employed Cognitive needs: No Hearing needs: No Vision needs: No Review of Systems Const Denies chills and Denies fever(s) Card Reports no additional complaints and Denies syncope Resp Denies cough GI Denies abdominal pain and Denies heartburn Reports as per HPI and Denies change in libido Neuro Denies syncope Psych Denies change in libido Endo Denies change in libido Physical Exam Const General: cooperative, healthy appearing, comfortable and no acute distress Orientation/consciousness: patient oriented x3 HEENT Face and sinus: Yes normal facial exam Mouth: moist mucous membranes Neck Neck: Yes normal visual inspection, Yes full ROM and Yes trachea midline Chest Chest palpation & inspection: normal inspection of the chest Resp Effort & Inspection: normal respiratory effort, able to speak in complete sentences and no respiratory distress GI Inspection: Yes normal to inspection Back/Spine/Pelvis Cervical Spine: normal cervical lordosis Thoracic/Lumbar Spine: thoracic and lumbar spine normal to inspection Skin General skin exam: no rashes or lesions noted Neuro General: patient oriented x3, gait normal, tone normal and moves all extremities Extrem General: Yes normal to inspection and Yes capillary refill normal Assessment & Plan Assessment & Plan (1) Nephrolithiasis: Code(s): N20.0 - Calculus of kidney (2) Hydronephrosis with renal and ureteral calculous obstruction: Code(s): N13.2 - Hydronephrosis with renal and ureteral calculous obstruction Plan Six month follow-up Orders: Orders US renal BI 6 Months N20.0 - Calculus of kidney Patient Instructions: Imaging studies, laboratory and physical exam results were discussed and reviewed in detail. No major barriers to patient understanding were identified. An opportunity to ask questions regarding the treatment plan was provided. All questions were answered. The patient expressed understanding and agreement with the above treatment plan. The patient is aware they should contact our office by phone for worsening of their current condition or the appearance of new urologic symptoms. Compliance is encouraged with any medications and followup testing that is ordered. It is a privilege to participate in the urologic care of your patient. If you have any questions or concerns regarding treatment for the above conditions, or other urologic issues, please do not hesitate to contact me. The office telephone contact is [phone]. This note is constructed using voice recognition software. While every effort has been made to ensure accuracy staff physical therapy assistant errors may have been included. Yours sincerely, Dr Samuel Gee MD, [facility] - Urology Providers of Expert, Compassionate Care for the Genitourinary System Coding Level of Care Code Est Pt Level 3 (13190) Diagnoses Nephrolithiasis N20.0 Hydronephrosis with renal and ureteral calculous obstruction N13.2
== END 2023-04-22 11:10 | disposition home or self-care (01) ==
PROVIDERS: PCP Nurse Practitioner Family; Visit Provider Urology
DX: N13.2 Hydronephrosis with renal and ureteral calculous obstruction (principal)
CPT/HCPCS: 99213

== ENCOUNTER → 2023-04-22 10:03 | Outpatient (BNVA) | payer OTHER, MEDICAID, SELFPAY | PROVIDERS: PCP Nurse Practitioner Family; Visit Provider Urology | DX: N13.2 Hydronephrosis with renal and ureteral calculous obstruction (principal) | CPT/HCPCS: 99212 ==

== ENCOUNTER 2023-04-26 11:03 | Outpatient (AMB) | payer OTHER, MEDICAID, SELFPAY ==
[2023-04-26 11:06] VITALS: BP 130/81; PULSE 79; BMI 21.5
--- NOTE | 2023-04-26 11:06 | A.OFFVIS_ITS ---
Intake Vital Signs 04/26/23 11:06 Height 5 ft 1 in Weight 114 lb BMI 21.5 BP 130/81 Blood Pressure Location Rt brachial Position Sitting Pulse 79 Intake Visit Reasons: Enlarged lymph nodes Intake Note: Patient referred for swollen LT inguinal lymph nodes. Started since 03-22-23. Had CT scan. Reports feeling sick, lack of energy, fatigued. C/o pain that spreads down leg for 1wk. [place] Required: No Accompanied by: Self / Same As Patient Allergies methenamine Allergy (Severe, Verified 04/26/23 11:13) mouth sores morphine [MORPHINE] Allergy (Intermediate, Verified 04/26/23 11:13) NAUSEA & VOMITING Penicillins [PENICILLINS] Allergy (Intermediate, Verified 04/26/23 11:13) rash/swelling sulfamethoxazole [From BACTRIM] Allergy (Intermediate, Verified 04/26/23 11:13) RASH tamsulosin [From FLOMAX] Allergy (Intermediate, Verified 04/26/23 11:13) RASH trimethoprim [From BACTRIM] Allergy (Intermediate, Verified 04/26/23 11:13) RASH hydrochlorothiazide [Maxzide] Allergy (Mild, Verified 04/26/23 11:13) Rash triamterene [Maxzide] Allergy (Mild, Verified 04/26/23 11:13) Rash terazosin Allergy (Verified 04/26/23 11:13) Swelling nitrofurantoin Adverse Reaction (Intermediate, Uncoded 04/26/23 11:13) painful wrists HPI HPI Comments History of Present Illness Details Patient presents for evaluation of left groin adenopathy. She has had this indeterminate time. She has had a collection of symptoms including fever, chills, night sweats, and approximately 35 lb weight loss over the last year and a half for so. She feels weak, has headaches, and feels generally unwell. She also complains of left groin pain and left lower extremity weakness. Workup for kidney stones demonstrated left groin adenopathy. Patient does not recall any left leg or foot infections or cat scratches or any other trauma pathology. Chart was reviewed patient evaluated [facility] Medical History Hydronephrosis with renal and ureteral calculous obstruction Back pain Anxiety and depression Renal calculi Bolanos esophagus Surgical History History of loop electrical excision procedure (LEEP) Hx of tubal ligation History of esophagogastroduodenoscopy (EGD) H/O colonoscopy Hx of cystoscopy Family History Mother Dementia Father Myocardial infarction Social History Housing: House Alcohol intake: current Alcohol intake frequency: holidays/special occasions only Patient Tobacco Use Status: Current everyday Tobacco user Tobacco use type: Cigarette Cigarettes Per Day: 10 e-Cigarette/Vaping Use: Never Used Substance Use Type: Marijuana Advance Directives Date on File: 01/19/21 service: No Current occupational status: employed Cognitive needs: No Hearing needs: No Vision needs: No Physical Exam Vital Signs: Last Vital Signs Pulse 79 04/26/23 11:06 BP 130/81 04/26/23 11:06 BMI result Body Mass Index 21.5 HEENT Other: No cervical, periclavicular or axillary adenopathy bilaterally was demonstrated. Chest Other: Chest breath sounds bilaterally, HS 1 in 2 GI Other: Abdomen soft, benign, no obvious organomegaly, nontender Extrem Other: Right groin exam negative. Left groin exam demonstrated very tender moderately enlarged femoral lymph nodes. Exam was somewhat limited secondary to patient's discomfort. Extremities are grossly neurovascularly intact Assessment & Plan Assessment & Plan (1) Enlarged lymph node: Comment: left groin Code(s): R59.9 - Enlarged lymph nodes, unspecified Plan Patient is very anxious and apprehensive about her feeling unwell. She would like to have these lymph nodes biopsied as soon as possible. Because of the unclear nature of the patient's symptoms and the findings of this adenopathy, the current plan is to arrange for left groin excisional biopsy of lymph nodes. Risks, benefits, alternatives of procedure were extensively reviewed with the patient and included but not limited to bleeding, infection, recurrence, numbness, pain, scarring, seroma formation, non diagnosis and the patient wishes to proceed. All questions were answered. Arrangements will be made for this. Coding Level of Care Code New Pt Level 5 (33682) Diagnoses Enlarged lymph node R59.9
== END 2023-04-26 11:20 | disposition home or self-care (01) ==
PROVIDERS: PCP Nurse Practitioner Family; Referring Provider Nurse Practitioner Family; Visit Provider Surgery
DX: R59.9 Enlarged lymph nodes, unspecified (principal)
CPT/HCPCS: 99204; 99214

== ENCOUNTER → 2023-04-26 11:03 | Outpatient (BNVA) | payer OTHER, MEDICAID, SELFPAY | PROVIDERS: PCP Nurse Practitioner Family; Referring Provider Nurse Practitioner Family; Visit Provider Surgery ==

== ENCOUNTER 2023-05-06 07:04 | Day surgery (SDC) | payer OTHER, MEDICAID, SELFPAY ==
[2023-05-03 15:10] VITALS: BMI 21.5
--- NOTE | 2023-05-05 07:17 | MHC.SHP ---
Pre-Procedural Eval Section A Date of Service: 05/05/23 The patient is an INPATIENT: No Changes since office visit: No Cold of Flu in the past 2 weeks, No New Medical Problems, No Changes in Medication and No Patient answered all questions The History & Physical has been completed within 30 days and I have reviewed it.: Yes Section B Chief Complaint: Enlarged lymph nodes, unspecified Allergies: Allergies Allergy/AdvReac Type Severity Reaction Status Date / Time methenamine Allergy Severe mouth sores Verified 04/26/23 11:13 morphine [MORPHINE] Allergy Intermediate NAUSEA & Verified 04/26/23 11:13 VOMITING Penicillins [PENICILLINS] Allergy Intermediate rash/swelli Verified 04/26/23 11:13 ng sulfamethoxazole Allergy Intermediate RASH Verified 04/26/23 11:13 [From BACTRIM] tamsulosin [From FLOMAX] Allergy Intermediate RASH Verified 04/26/23 11:13 trimethoprim [From BACTRIM] Allergy Intermediate RASH Verified 04/26/23 11:13 hydrochlorothiazide [Maxzide] Allergy Mild Rash Verified 04/26/23 11:13 triamterene [Maxzide] Allergy Mild Rash Verified 04/26/23 11:13 terazosin Allergy Swelling Verified 04/26/23 11:13 nitrofurantoin AdvReac Intermediate painful Uncoded 04/26/23 11:13 wrists Plan I have reviewed the history and physical and performed a pertinent physical examination on my patient. No changes have occurred unless specified. Time Spent With Patient Time: Total time managing care of this patient today ____ minutes.
[2023-05-06] MEDS: Lactated Ringers 1,000 ML 100 ML IVCONT (07:26)
[2023-05-06 07:35] VITALS: BP 119/77; PULSE 70; RESP 18; TEMP 36.9; O2SAT 97
--- NOTE | 2023-05-06 08:15 | HO.ANESPROP2 ---
Documented by User: Tayler Yanez NP 05/05/23 09:04 HPI - Anesthesia Eval Consult details Narrative: 58yo F for Left Wide Local Excision Lymph Nodes PMFSH Active Problems Active Problems: All Active Problems (Updated 04/20/23 @ 12:43 by QUENTIN Roberts) Bolanos esophagus (Acute) Enlarged lymph node (Acute) Nephrolithiasis (Acute) Hydronephrosis with renal and ureteral calculous obstruction (Acute) Past Medical History Medical History Hydronephrosis with renal and ureteral calculous obstruction Back pain Anxiety and depression Renal calculi Bolanos esophagus Family History Family History Mother Dementia Father Myocardial infarction Family history of problems with anesthesia: No Surgical History Surgical History History of loop electrical excision procedure (LEEP) Hx of tubal ligation History of esophagogastroduodenoscopy (EGD) H/O colonoscopy Hx of cystoscopy History of Problems with Anesthesia: No Social History Social History Housing: House Alcohol intake: current Alcohol intake frequency: holidays/special occasions only Patient Tobacco Use Status: Current everyday Tobacco user Tobacco use type: Cigarette Cigarettes Per Day: 10 Smoked in Last 30 Days: Yes e-Cigarette/Vaping Use: Never Used Patient Interested in Nicotine Replacement: No Substance Use Type: Marijuana Substance Use Frequency: Daily Are you DNR?: No Advance Directives: No Advance Directives Information Provided: Yes Advance Directives Date on File: 01/19/21 Nutrition Risks: No Nutritional Risk service: No Current occupational status: employed Cognitive needs: No Hearing needs: No Vision needs: No Meds Allergies Allergy/AdvReac Type Severity Reaction Status Date / Time methenamine Allergy Severe mouth sores Verified 04/26/23 11:13 morphine [MORPHINE] Allergy Intermediate NAUSEA & Verified 04/26/23 11:13 VOMITING Penicillins [PENICILLINS] Allergy Intermediate rash/swelli Verified 04/26/23 11:13 ng sulfamethoxazole Allergy Intermediate RASH Verified 04/26/23 11:13 [From BACTRIM] tamsulosin [From FLOMAX] Allergy Intermediate RASH Verified 04/26/23 11:13 trimethoprim [From BACTRIM] Allergy Intermediate RASH Verified 04/26/23 11:13 hydrochlorothiazide [Maxzide] Allergy Mild Rash Verified 04/26/23 11:13 triamterene [Maxzide] Allergy Mild Rash Verified 04/26/23 11:13 terazosin Allergy Swelling Verified 04/26/23 11:13 nitrofurantoin AdvReac Intermediate painful Uncoded 04/26/23 11:13 wrists Exam Exam Date and Time: May 05, [id number] Height,Weight and Vital Signs: Height 5 ft 1 in Weight 51.71 kg Pertinent Lab Results Pertinent Lab Results: Laboratory Tests 03/22/23 14:09 WBC 7.7 Hgb 12.8 Hct 38.0 Plt Count 253 Sodium 142 Potassium 4.0 Chloride 108 Carbon Dioxide 27 BUN 10 Creatinine 0.74 Assessment and Plan Assessment Anesthesia Assessment: Chart Reviewed Final Anesthetic Review Family History of Problems with Anesthesia: No History of Problems with Anesthesia: No Documented by User: Donna Gaitan DO 05/06/23 08:18 HPI - Anesthesia Eval Consult details Narrative: 58yo F for Left Wide Local Excision Lymph Nodes. Smoker. Marijuana use. PMFSH Past Medical History Medical History Hydronephrosis with renal and ureteral calculous obstruction Back pain Anxiety and depression Renal calculi Bolanos esophagus Family History Family History Mother Dementia Father Myocardial infarction Family history of problems with anesthesia: No Surgical History Surgical History History of loop electrical excision procedure (LEEP) Hx of tubal ligation History of esophagogastroduodenoscopy (EGD) H/O colonoscopy Hx of cystoscopy History of Problems with Anesthesia: No Social History Social History Housing: House Alcohol intake: current Alcohol intake frequency: holidays/special occasions only Patient Tobacco Use Status: Current everyday Tobacco user Tobacco use type: Cigarette Cigarettes Per Day: 10 Smoked in Last 30 Days: Yes e-Cigarette/Vaping Use: Never Used Patient Interested in Nicotine Replacement: No Substance Use Type: Marijuana Substance Use Frequency: Daily Are you DNR?: No Advance Directives: No Advance Directives Information Provided: Yes Advance Directives Date on File: 01/19/21 Nutrition Risks: No Nutritional Risk service: No Current occupational status: employed Cognitive needs: No Hearing needs: No Vision needs: No Meds Allergies Allergy/AdvReac Type Severity Reaction Status Date / Time methenamine Allergy Severe mouth sores Verified 04/26/23 11:13 morphine [MORPHINE] Allergy Intermediate NAUSEA & Verified 04/26/23 11:13 VOMITING Penicillins [PENICILLINS] Allergy Intermediate rash/swelli Verified 04/26/23 11:13 ng sulfamethoxazole Allergy Intermediate RASH Verified 04/26/23 11:13 [From BACTRIM] tamsulosin [From FLOMAX] Allergy Intermediate RASH Verified 04/26/23 11:13 trimethoprim [From BACTRIM] Allergy Intermediate RASH Verified 04/26/23 11:13 hydrochlorothiazide [Maxzide] Allergy Mild Rash Verified 04/26/23 11:13 triamterene [Maxzide] Allergy Mild Rash Verified 04/26/23 11:13 terazosin Allergy Swelling Verified 04/26/23 11:13 nitrofurantoin AdvReac Intermediate painful Uncoded 04/26/23 11:13 wrists Exam Exam Date and Time: May 06, 2023 0815 Height,Weight and Vital Signs: Height 5 ft 1 in Weight 51.71 kg Vital Signs Temperature 98.4 F 05/06/23 07:35 Pulse Rate 70 05/06/23 07:35 Respiratory Rate 18 05/06/23 07:35 Blood Pressure 119/77 05/06/23 07:35 Pulse Oximetry 97 05/06/23 07:35 Oxygen Delivery Method Room Air 05/06/23 07:35 Temperature 98.4 F 05/06/23 07:35 Pulse Rate 70 05/06/23 07:35 Respiratory Rate 18 05/06/23 07:35 Blood Pressure 119/77 05/06/23 07:35 Pulse Oximetry 97 05/06/23 07:35 Oxygen Delivery Method Room Air 05/06/23 07:35 Airway Mallampati Class: II TM Dist: >3cm Neck ROM: Full Partial: Upper Heart: S1S2 Lungs: CTAB Assessment and Plan Assessment Anesthesia Assessment: Anesthesia Plan Discussed and Chart Reviewed Final Anesthetic Review Family History of Problems with Anesthesia: No History of Problems with Anesthesia: No NPO: Yes ASA Class: II Final Preanesthetic Review: No Changes in Pt Med Stat, Meds/Allgs Chart Reviewed, Consent Obtained/Reviewed and Anes Risks/Benef Reviewed Patient Risk: Low Procedure Risk: Low Anesthetic Plan Anesthetic Plan: MAC: and Agree w/ Assess. and Plan Disposition: Standard PACU
[2023-05-06 09:25] VITALS: BP 100/63; PULSE 73; RESP 18; TEMP 36.9; O2SAT 99
[2023-05-06 09:50] VITALS: BP 106/68; PULSE 72; RESP 18; O2SAT 99
[2023-05-06 10:03] VITALS: BP 106/54; PULSE 70; RESP 15; TEMP 36.6; O2SAT 99
--- NOTE | 2023-05-06 10:52 | W.PM.OPN ---
Operative Note Operative Note Date of Service: 05/06/23 Narrative: Preoperative diagnosis: [] left groin adenopathy Postop diagnosis: [] same Procedure [] excision of biopsy several left groin lymph nodes. Surgeon: [] Timoteo Stripper Preliminary: [] Type of Anesthesia: [] MAC Indication for surgery: [] patien t presents with a collection of constitutional symptoms, and weight loss and feeling unwell. She has had left groin adenopathy which has increased in size. Intraoperatively, several large fish flesh type lymph nodes were excised and sent to pathology as fresh Specimen is saline per pathology request for evaluation Findings: [] patient brought to the operating room, placed on operative table in supine position, after adequate level of MAC anesthesia was induced, the left groin was prepped and draped usual sterile fashion. Using 1% lidocaine and 0.5% Marcaine to infiltrate the proposed incision site, this carried down through skin, subcutaneous tissue, Sushant's fascia. Several large lymph nodes were identified and circumferentially dissected out en block using blunt, sharp, and Bovie dissection and sent to pathology as noted above. Wound was irrigated, secured hemostasis, and closed in the following manner; Sushant's fascia was reapproximated using interrupted 3-0 Vicryl suture. Skin was closed using interrupted inverted dermal 3-0 Vicryl sutures followed by Steri-Strips and sterile dressings. Sponge, needle, and instrument counts reported correct. Patient tolerated the procedure well and emerged anesthesia stable condition. EBL minimal
== END 2023-05-06 10:30 | disposition home or self-care (01) ==
PROVIDERS: PCP Nurse Practitioner Family; Visit Provider Surgery
PROC: (CPT 38500; principal; 2023-05-06 08:40)
DX: R59.9 Enlarged lymph nodes, unspecified (principal); K22.70 Barrett's esophagus without dysplasia; N13.2 Hydronephrosis with renal and ureteral calculous obstruction; F41.8 Other specified anxiety disorders; Z98.890 Other specified postprocedural states; F17.210 Nicotine dependence, cigarettes, uncomplicated; F12.90 Cannabis use, unspecified, uncomplicated; Z88.0 Allergy status to penicillin; Z88.2 Allergy status to sulfonamides; Z88.5 Allergy status to narcotic agent; Z88.8 Allergy status to other drugs, medicaments and biological substances
CPT/HCPCS: 38531; 36415; 88184; 88185; 88305; J2250; J2795; J3010

== ENCOUNTER → 2023-05-06 07:04 | Outpatient (BNV) | payer OTHER, MEDICAID, SELFPAY | PROVIDERS: PCP Nurse Practitioner Family; Visit Provider Surgery | DX: R59.9 Enlarged lymph nodes, unspecified (principal) | CPT/HCPCS: 38531 ==

== ENCOUNTER 2023-05-10 11:05 | Outpatient (AMB) | payer OTHER, MEDICAID, SELFPAY ==
--- NOTE | 2023-05-10 11:07 | A.OFFPC_ITS ---
Vital Signs 05/10/23 11:08 Height 5 ft 1 in Weight 121 lb 4 oz BMI 22.9 BP 138/84 Blood Pressure Location Lt brachial Position Sitting Pulse 76 Pulse Source Pulse Oximeter Pulse Oximetry (%) 97 Oxygen Delivery Method Room Air Intake Visit Reasons: 3 Weeks f/u Intake Note: Patient is here to follow up on enlarged Lymph node post surgery. [employer] Supervisor Required: No Deli Department Manager: Not Required per policy Accompanied by: Self / Same As Patient Allergies methenamine Allergy (Severe, Verified 05/10/23 11:38) mouth sores morphine [MORPHINE] Allergy (Intermediate, Verified 05/10/23 11:38) NAUSEA & VOMITING Penicillins [PENICILLINS] Allergy (Intermediate, Verified 05/10/23 11:38) rash/swelling sulfamethoxazole [From BACTRIM] Allergy (Intermediate, Verified 05/10/23 11:38) RASH tamsulosin [From FLOMAX] Allergy (Intermediate, Verified 05/10/23 11:38) RASH trimethoprim [From BACTRIM] Allergy (Intermediate, Verified 05/10/23 11:38) RASH hydrochlorothiazide [Maxzide] Allergy (Mild, Verified 05/10/23 11:38) Rash triamterene [Maxzide] Allergy (Mild, Verified 05/10/23 11:38) Rash terazosin Allergy (Verified 05/10/23 11:38) Swelling nitrofurantoin Adverse Reaction (Intermediate, Uncoded 05/10/23 11:08) painful wrists Medication List - Last Reconciled 05/10/23 by QUENTIN Roberts acetaminophen (Tylenol Extra Strength) 1,000 mg (2 x 500 mg) PO QID PRN oxycodone 5 mg PO Q8H PRN oxycodone 5 mg PO Q4H PRN Tobacco use date assessed: 05/10/23 HPI HPI Comments History of Present Illness Details 58-year-old female new patient presents today to establish care past medical history significant for Bolanos's esophagus, nephrolithiasis and hydronephrosis. Review of the notes patient was seen in the emergency room on 03/22/2023 for an enlarged left inguinal lymph node noted on CT scan. Recommended further evaluation with biopsy. Patient was seen by General surgery Dr. Baldwin and underwent lymph node excision biopsy on, pathology pending.Patient reports has follow-up appointment scheduled with General surgery on Tuesday05/16/23. Patient has upcoming appointment scheduled to establish care oncology on 05/17/23. Patient reports she does pain in left groin related to the biopsy, does have oxycodone prescribed per this however she did not take any this morning because she was driving to her appointment. Review of the notes patient was seen by Urology to follow-up on renal stones recommended patient continue with limited use and follow-up in 6 months for surveillance. [facility] Medical History Hydronephrosis with renal and ureteral calculous obstruction Back pain Anxiety and depression Renal calculi Bolanos esophagus Surgical History (Updated 05/10/23 @ 11:14 by ILSA Aviles) History of surgery History of loop electrical excision procedure (LEEP) Hx of tubal ligation History of esophagogastroduodenoscopy (EGD) H/O colonoscopy Hx of cystoscopy Family History Mother Dementia Father Myocardial infarction Social History Housing: House Alcohol intake: current Alcohol intake frequency: holidays/special occasions only Patient Tobacco Use Status: Current everyday Tobacco user Tobacco use type: Cigarette Cigarettes Per Day: 10 e-Cigarette/Vaping Use: Never Used Second Hand Smoke Exposure: Yes Substance Use Type: Marijuana Advance Directives Date on File: 01/19/21 service: No Current occupational status: employed Cognitive needs: No Hearing needs: No Vision needs: No Questionnaire Thrive Questionnaire Date Thrive assessed: 04/19/23 DELORES-7 AMB Questionnaire DELORES-7 Date DELORES - 7 assessed: 04/19/23 Source: Developed by Drs. Bridger Oliver, Sandhya Blackmon, Fadi Mason and colleagues, with an educational parul from [employer] Review of Systems Const Denies chills, Denies fatigue, Denies fever(s) and Denies poor appetite Eyes Denies no additional complaints ENT Reports Normal hearing present Card Denies chest pain, Denies syncope, Denies rapid heart rate and Denies dyspnea Resp Denies cough and Denies dyspnea GI Denies change in stool character, Denies constipation, Denies diarrhea, Denies nausea and Denies vomiting Denies urinary frequency, Denies dysuria and Denies urinary urgency Neuro Reports Normal hearing present, Denies confusion and Denies syncope Psych Denies confusion Endo Denies fatigue Physical exam (Primary Care) Vital Signs: Last Vital Signs Pulse 76 05/10/23 11:08 BP 138/84 05/10/23 11:08 Pulse Ox 97 05/10/23 11:08 Oxygen Delivery Method Room Air 05/10/23 11:08 BMI result Body Mass Index 22.9 Tobacco/Smoking Status: Tobacco use Status Tobacco use date assessed 05/10/23 05/10/23 11:15 Patient Tobacco Use Status Current everyday Tobacco 05/10/23 11:15 Tobacco use type Cigarette 05/10/23 11:15 e-Cigarette/Vaping Use Never Used 05/10/23 11:15 Thrive Assessment: Date of Thrive Assessment Date Thrive assessed 04/19/23 05/10/23 11:15 Const General: No confusion Orientation/consciousness: No confusion HENMT Head: Yes normocephalic and Yes atraumatic Eyes Conjunctivae: conjunctivae normal Chest Chest palpation & inspection: normal inspection of the chest Resp Effort & Inspection: normal respiratory effort Auscultation: clear to auscultation bilaterally, no crackles, no rhonchi and no wheezes Cardio Rate: regular rate Rhythm: regular rhythm Heart sounds: S1 normal heart sound present and S2 normal heart sound present GI Inspection: Yes normal to inspection Neuro General: No confusion Cranial nerves: Yes Normal hearing present Extrem General: No edema Assessment and Plan Assessment & Plan (1) Enlarged lymph node: Comment: left groin Code(s): R59.9 - Enlarged lymph nodes, unspecified Plan: Keep scheduled follow-up with General surgery and establish care with Oncology. (2) Nephrolithiasis: Code(s): N20.0 - Calculus of kidney Plan: Continue to follow-up Urology. (3) Bolanos esophagus: Code(s): K22.70 - Bolanos's esophagus without dysplasia Plan: Continue to follow with gastroenterology. Plan Follow up in 2 months for physical exam Orders: Orders MM screening mammo BI Today Z12.31 - Encounter for screening mammogram for malignant neoplasm of breast Referrals [employer] Referral Z12.4 - Encounter for screening for malignant neoplasm of cervix Coding Level of Care Code Est Pt Level 3 (31655) Diagnoses Enlarged lymph node R59.9 Nephrolithiasis N20.0 Bolanos esophagus K22.70
[2023-05-10 11:08] VITALS: BP 138/84; PULSE 76; O2SAT 97; BMI 22.9
== END 2023-05-10 11:31 | disposition home or self-care (01) ==
PROVIDERS: PCP Nurse Practitioner Family; Visit Provider Nurse Practitioner Family
DX: R59.9 Enlarged lymph nodes, unspecified (principal); N20.0 Calculus of kidney; K22.70 Barrett's esophagus without dysplasia
CPT/HCPCS: 99213

== ENCOUNTER 2023-05-16 09:38 | Outpatient (AMB) | payer OTHER, MEDICAID, SELFPAY ==
[2023-05-16 09:44] VITALS: BP 133/91; PULSE 87
--- NOTE | 2023-05-16 09:44 | A.OFFVIS_ITS ---
Intake Vital Signs 05/16/23 09:44 Weight 122 lb BP 133/91 H Blood Pressure Location Lt brachial Position Sitting Pulse 87 Intake Visit Reasons: S/P WLE Lt groin lymph nodes Intake Note: Patient here s/p WLE Lt groin lymph nodes. C/o lump along incision that gets filled with clear fluid. Denies redness. C/o constant pain on leg. Still taking rx pain meds as needed. Manager Operating Required: No Accompanied by: Self / Same As Patient Allergies methenamine Allergy (Severe, Verified 05/16/23 09:46) mouth sores morphine [MORPHINE] Allergy (Intermediate, Verified 05/16/23 09:46) NAUSEA & VOMITING Penicillins [PENICILLINS] Allergy (Intermediate, Verified 05/16/23 09:46) rash/swelling sulfamethoxazole [From BACTRIM] Allergy (Intermediate, Verified 05/16/23 09:46) RASH tamsulosin [From FLOMAX] Allergy (Intermediate, Verified 05/16/23 09:46) RASH trimethoprim [From BACTRIM] Allergy (Intermediate, Verified 05/16/23 09:46) RASH hydrochlorothiazide [Maxzide] Allergy (Mild, Verified 05/16/23 09:46) Rash triamterene [Maxzide] Allergy (Mild, Verified 05/16/23 09:46) Rash terazosin Allergy (Verified 05/16/23 09:46) Swelling nitrofurantoin Adverse Reaction (Intermediate, Uncoded 05/16/23 09:46) painful wrists HPI HPI Comments History of Present Illness Details Patient presents for follow-up. Aside from incisional discomfort which is improving, she is doing relatively well. She is slowly but steadily increasing her activity level. Pathology results showed the evidence of lymphoma. Patient is scheduled to follow-up with oncology tomorrow. [facility] Medical History Hydronephrosis with renal and ureteral calculous obstruction Back pain Anxiety and depression Renal calculi Bolanos esophagus Surgical History History of surgery History of loop electrical excision procedure (LEEP) Hx of tubal ligation History of esophagogastroduodenoscopy (EGD) H/O colonoscopy Hx of cystoscopy Family History Mother Dementia Father Myocardial infarction Social History Housing: House Alcohol intake: current Alcohol intake frequency: holidays/special occasions only Patient Tobacco Use Status: Current everyday Tobacco user Tobacco use type: Cigarette Cigarettes Per Day: 10 e-Cigarette/Vaping Use: Never Used Second Hand Smoke Exposure: Yes Substance Use Type: Marijuana Advance Directives Date on File: 01/19/21 service: No Current occupational status: employed Cognitive needs: No Hearing needs: No Vision needs: No Physical Exam Vital Signs: Last Vital Signs Pulse 87 05/16/23 09:44 BP 133/91 H 05/16/23 09:44 Extrem Other: Left groin wound is clean dry and intact, healing uneventfully. Assessment & Plan Assessment & Plan (1) Enlarged lymph node: Comment: left groin Code(s): R59.9 - Enlarged lymph nodes, unspecified Plan My perspective, patient is doing well. Will give her another week from work. She will follow-up p.r.n. Coding Level of Care Code Global (73389) Diagnoses Enlarged lymph node R59.9
== END 2023-05-16 10:06 | disposition home or self-care (01) ==
PROVIDERS: PCP Nurse Practitioner Family; Visit Provider Surgery
DX: R59.9 Enlarged lymph nodes, unspecified (principal)
CPT/HCPCS: 99024

== ENCOUNTER → 2023-05-16 09:38 | Outpatient (BNVA) | payer OTHER, MEDICAID, SELFPAY | PROVIDERS: PCP Nurse Practitioner Family; Visit Provider Surgery ==

== ENCOUNTER → 2023-05-17 11:16 | Outpatient (BNV) | payer OTHER, MEDICAID, SELFPAY | PROVIDERS: PCP Nurse Practitioner Family; Visit Provider Internal Medicine Medical Oncology | DX: R59.9 Enlarged lymph nodes, unspecified (principal) | CPT/HCPCS: 99204; 99213; 99214 ==

== ENCOUNTER 2023-06-21 11:28 | Outpatient (REF) | payer OTHER, SELFPAY | END 2023-06-21 11:29 | disposition home or self-care (01) | LOC: HO.MAMMO 11:28 | PROVIDERS: PCP Nurse Practitioner Family; Visit Provider Nurse Practitioner Family | DX: Z12.31 Encounter for screening mammogram for malignant neoplasm of breast (principal) | CPT/HCPCS: 77063; 77067 ==

== ENCOUNTER → 2023-06-21 11:30 | Outpatient (BNV) | payer OTHER, SELFPAY | PROVIDERS: PCP Nurse Practitioner Family; Visit Provider Radiology Diagnostic Radiology | DX: Z12.31 Encounter for screening mammogram for malignant neoplasm of breast (principal) | CPT/HCPCS: 77063; 77067 ==

== ENCOUNTER 2023-09-27 09:56 | Outpatient (REF) | payer OTHER, SELFPAY ==
--- NOTE | ~2023-09-27 | US_ITS ---
EXAMINATION: US RETROPERITONEAL LIMITED (RENAL ONLY) CLINICAL INFORMATION: Calculus of kidney. COMPARISON: Renal ultrasound 04/01/2023 TECHNIQUE: Real-time imaging of the kidneys. FINDINGS: RIGHT KIDNEY: 9.9 x 4.3 x 5.3 cm (SAG x AP x TRV). The kidney is normal in size, contour, and echogenicity. Renal cortical thickness is normal. No calculi or focal parenchymal lesions. No hydronephrosis. LEFT KIDNEY: 10.3 x 5.3 x 5.7 cm (SAG x AP x TRV). The kidney is normal in size, contour, and echogenicity. Renal cortical thickness is normal. No calculi or focal parenchymal lesions. No hydronephrosis. US/US renal BI IMPRESSION: No hydronephrosis or nephrolithiasis.
== END 2023-09-27 09:57 | disposition home or self-care (01) ==
LOC: HO.US 09:56
PROVIDERS: PCP Internal Medicine; Visit Provider Urology
DX: N20.0 Calculus of kidney (principal)
CPT/HCPCS: 76775

== ENCOUNTER 2023-10-18 09:01 | Outpatient (AMB) | payer OTHER, MEDICAID, SELFPAY ==
--- NOTE | 2023-10-18 09:15 | A.OFFVIS_ITS ---
Intake Intake Visit Reasons: 6M US(Set)Confirmed Intake Note: Patient is Present for Follow Up Urology Medication: none Antibiotic Allergies: Penicillin, Sulfa, Trimethroprim,Nitrofuratoin,Methedamine Blood Thinners: None Allergies methenamine Allergy (Severe, Verified 10/18/23 09:18) mouth sores morphine [MORPHINE] Allergy (Intermediate, Verified 10/18/23 09:18) NAUSEA & VOMITING Penicillins [PENICILLINS] Allergy (Intermediate, Verified 10/18/23 09:18) rash/swelling sulfamethoxazole [From BACTRIM] Allergy (Intermediate, Verified 10/18/23 09:18) RASH tamsulosin [From FLOMAX] Allergy (Intermediate, Verified 10/18/23 09:18) RASH trimethoprim [From BACTRIM] Allergy (Intermediate, Verified 10/18/23 09:18) RASH hydrochlorothiazide [Maxzide] Allergy (Mild, Verified 10/18/23 09:18) Rash triamterene [Maxzide] Allergy (Mild, Verified 10/18/23 09:18) Rash terazosin Allergy (Verified 10/18/23 09:18) Swelling nitrofurantoin Adverse Reaction (Intermediate, Uncoded 10/18/23 09:18) painful wrists HPI HPI Comments History of Present Illness Details Maxine is a pleasant female. She is a patient of Dr. Chino. She is seen for the following urologic conditions - recurrent nephrolithiasis Six month follow-up Renal ultrasound negative Continue with lemon juice and surveillance imaging Push out to every 12 months Nephrolithiasis/Urolithiasis:? Last procedure 07/15 left ureteroscopy ? They are here for further evaluation of nephrolithiasis. ? Urolithiasis was [place]12 [facility] [place]. ? The patient previously had kidney stones whose composition w 08/12 , calcium oxalate - dihydrate, calcium phosphate - hydroxyapatite - 07/15 carbonate apatite 85%, triple phos 15% ? Laboratory investigations include - 07/15 Ca 9.7, 04/16 normal stone labs ? 24 Hour urine evaluation 09/12 , Low Urine volume < 2.0 liters, Low calcium < 200, High Citrate, Low Oxalate < 30, low sodium. ? Prior treatment(s) include 08/12 bilateral USR - 01/12? left mid ureteric stone with USR - 07/15 left ureteroscopy ? Prior imaging includes 03/12 , a renal ultrasound 2mm stone on left ? 07/12 , a CT (computed tomography) scan of the abdomen/pelvis (stone protocol), 3mm stone distal left ureter with hydronephrosis ? 10/11 , a renal ultrasound, showing no evidence of stones ? 04/13 , a renal ultrasound 8mm Left stone - 02/11 renal ultrasound no evidence of stones, hydronephrosis resolved -07/15 - CT- Obstructing 6 mm distal left ureteral calculus with associated hydronephrosis. - 10/14 renal ultrasound possible punctate stone left side - 04/16 renal ultrasound no evidence of stones - 10/14 renal ultrasound evidence of stones PFSH Medical History Hydronephrosis with renal and ureteral calculous obstruction Back pain Anxiety and depression Renal calculi Bolanos esophagus Surgical History History of surgery History of loop electrical excision procedure (LEEP) Hx of tubal ligation History of esophagogastroduodenoscopy (EGD) H/O colonoscopy Hx of cystoscopy Family History Mother Dementia Father Myocardial infarction Social History Housing: House Alcohol intake: current Alcohol intake frequency: holidays/special occasions only Comment: medicated with po tramadol and pyridium Patient Tobacco Use Status: Current everyday Tobacco user Tobacco use type: Cigarette e-Cigarette/Vaping Use: Never Used Second Hand Smoke Exposure: Yes Substance Use Type: Marijuana Advance Directives Date on File: 01/19/21 service: No Current occupational status: employed Cognitive needs: No Hearing needs: No Vision needs: No Review of Systems Const Denies chills and Denies fever(s) Card Reports no additional complaints and Denies syncope Resp Denies cough GI Denies abdominal pain and Denies heartburn Reports as per HPI and Denies change in libido Neuro Denies syncope Psych Denies change in libido Endo Denies change in libido Physical Exam Const General: cooperative, healthy appearing, comfortable and no acute distress Orientation/consciousness: patient oriented x3 HEENT Face and sinus: Yes normal facial exam Mouth: moist mucous membranes Neck Neck: Yes normal visual inspection, Yes full ROM and Yes trachea midline Chest Chest palpation & inspection: normal inspection of the chest Resp Effort & Inspection: normal respiratory effort, able to speak in complete sentences and no respiratory distress GI Inspection: Yes normal to inspection Back/Spine/Pelvis Cervical Spine: normal cervical lordosis Thoracic/Lumbar Spine: thoracic and lumbar spine normal to inspection Skin General skin exam: no rashes or lesions noted Neuro General: patient oriented x3, gait normal, tone normal and moves all extremities Extrem General: Yes normal to inspection and Yes capillary refill normal Assessment & Plan Assessment & Plan (1) Nephrolithiasis: Code(s): N20.0 - Calculus of kidney (2) Hydronephrosis with renal and ureteral calculous obstruction: Code(s): N13.2 - Hydronephrosis with renal and ureteral calculous obstruction Plan Twelve month follow-up imaging Orders: Orders US renal BI 12 Months N20.0 - Calculus of kidney Patient Instructions: Imaging studies, laboratory and physical exam results were discussed and reviewed in detail. No major barriers to patient understanding were identified. An opportunity to ask questions regarding the treatment plan was provided. All questions were answered. The patient expressed understanding and agreement with the above treatment plan. The patient is aware they should contact our office by phone for worsening of their current condition or the appearance of new urologic symptoms. Compliance is encouraged with any medications and followup testing that is ordered. It is a privilege to participate in the urologic care of your patient. If you have any questions or concerns regarding treatment for the above conditions, or other urologic issues, please do not hesitate to contact me. The office telephone contact is [phone]. This note is constructed using voice recognition software. While every effort has been made to ensure accuracy financial report service sales agent errors may have been included. Yours sincerely, Dr Samuel Gee MD, [facility] - Urology Providers of Expert, Compassionate Care for the Genitourinary System Coding Level of Care Code Est Pt Level 3 (24552) Diagnoses Nephrolithiasis N20.0 Hydronephrosis with renal and ureteral calculous obstruction N13.2
== END 2023-10-18 09:33 | disposition home or self-care (01) ==
PROVIDERS: PCP Nurse Practitioner Family; Visit Provider Urology
DX: N20.0 Calculus of kidney (principal)
CPT/HCPCS: 99213

== ENCOUNTER → 2023-10-18 09:01 | Outpatient (BNVA) | payer OTHER, MEDICAID, SELFPAY | PROVIDERS: PCP Nurse Practitioner Family; Visit Provider Urology | DX: N13.2 Hydronephrosis with renal and ureteral calculous obstruction (principal) | CPT/HCPCS: 99212 ==

== ENCOUNTER 2023-12-22 10:37 | Outpatient (REF) | payer OTHER, MEDICAID, SELFPAY ==
[2023-12-29 01:39] LABS: HPV mRNA E6/E7 rflx Not Detected (Not Detected)
== END 2023-12-22 10:38 | disposition home or self-care (01) ==
LOC: HO.LNP 10:37
PROVIDERS: PCP Nurse Practitioner Family; Visit Provider Advanced Practice Midwife
DX: Z01.419 Encounter for gynecological examination (general) (routine) without abnormal findings (principal)
CPT/HCPCS: 87624; 88142

== ENCOUNTER 2023-12-22 10:37 | Outpatient (AMB) | payer OTHER, MEDICAID, SELFPAY ==
--- NOTE | 2023-12-22 10:43 | A.OFFVIS_ITS ---
Vital Signs 12/22/23 10:44 Height 5 ft 1 in Weight 117 lb BMI 22.1 BP 126/84 Intake Visit Reasons: New patient Annual School Office Assistant Required: No Information Interpreted: non-clinical & clinical Coffee Break Attendant: Coffee Break Attendant Present (Lexisyn) Allergies methenamine Allergy (Severe, Verified 12/22/23 10:47) mouth sores morphine [MORPHINE] Allergy (Intermediate, Verified 12/22/23 10:47) NAUSEA & VOMITING Penicillins [PENICILLINS] Allergy (Intermediate, Verified 12/22/23 10:47) rash/swelling sulfamethoxazole [From BACTRIM] Allergy (Intermediate, Verified 12/22/23 10:47) RASH tamsulosin [From FLOMAX] Allergy (Intermediate, Verified 12/22/23 10:47) RASH trimethoprim [From BACTRIM] Allergy (Intermediate, Verified 12/22/23 10:47) RASH hydrochlorothiazide [Maxzide] Allergy (Mild, Verified 12/22/23 10:47) Rash triamterene [Maxzide] Allergy (Mild, Verified 12/22/23 10:47) Rash terazosin Allergy (Verified 12/22/23 10:47) Swelling nitrofurantoin Adverse Reaction (Intermediate, Uncoded 12/22/23 10:47) painful wrists HPI Comments Details: She is a postmenopausal woman 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 She is doing well with no concerns: occasional non tender bumps that go away on their own, no concerns today for any bumps. She admits to feeling anxious for her exam today. Attempting to eat a healthy diet can not tolerate some foods, stays active with gardening and occasionally hikes. Currently not sexually active with partner. Denies any vaginal dryness or irritation. STI testing offered; she accepts. Last pap smear; unknown, LEEP in 1999. Last mammogram; 2022. Colonoscopy is UTD. Denies any family history of breast, ovarian or colon cancer. Smoker 1/2ppd, not interested in quitting. [facility] Medical History Hydronephrosis with renal and ureteral calculous obstruction Back pain Anxiety and depression Renal calculi Bolanos esophagus Surgical History (Updated 12/22/23 @ 11:00 by Maxine Jimenez CNM) History of surgery History of loop electrical excision procedure (LEEP) Hx of tubal ligation History of esophagogastroduodenoscopy (EGD) H/O colonoscopy Hx of cystoscopy Family History Mother Dementia Father Myocardial infarction Social History (Updated 12/22/23 @ 10:51 by ILSA Bain) Housing: House Alcohol intake: current Alcohol intake frequency: holidays/special occasions only Comment: medicated with po tramadol and pyridium Patient Tobacco Use Status: Current everyday Tobacco user Tobacco use type: Cigarette Cigarettes Per Day: 10 e-Cigarette/Vaping Use: Never Used Second Hand Smoke Exposure: Yes Substance Use Type: Marijuana Advance Directives Date on File: 01/19/21 service: No Current occupational status: employed Cognitive needs: No Hearing needs: No Vision needs: No Female Reproductive History Menstrual Age of Menarche: 12 control method: permanent sterilization Total pregnancies: 5 Full term: 2 Number of Living Children: 2 Ab induced: 1 Ab spontaneous: 2 Date of last pap smear: 09/29/07 (negative) History of abnormal pap smear: Yes (1998 LEEP-PPO 1) Date of Mammogram: 06/21/23 Review of Systems Const All systems reviewed & are unremarkable except as noted in HPI and below Reports as per HPI Eyes Reports no additional complaints ENT Reports no additional complaints Card Reports no additional complaints Resp Reports no additional complaints GI Reports as per HPI and Reports no additional complaints Reports as per HPI Musc Reports no additional complaints Skin/Breast Reports as per HPI Neuro Reports no additional complaints Psych Reports no additional complaints Endo Reports no additional complaints Magen/Lymph Reports no additional complaints Aller/Immun Reports no additional complaints Physical Exam Vital Signs: Last Vital Signs BP 126/84 12/22/23 10:44 BMI result Body Mass Index 22.1 Const General: cooperative, healthy appearing, no acute distress, well developed and alert Orientation/consciousness: patient oriented x3 HEENT Head: Yes normal to inspection Eyes General: appearance normal, both eyes and all related structures Neck Neck: Yes normal visual inspection Thyroid: Thyroid normal Chest Chest palpation & inspection: normal inspection of the chest and other (no puckering, dimpling, peau de orange, retraction, discharge, masses) Breast/axilla inspection: normal inspection of the breasts Breast/axilla palpation: normal palpation of the breasts Resp Effort & Inspection: normal respiratory effort GI Inspection: Yes normal to inspection Palpation (GI): Soft to palpation Rectal Exam - Female: deferred General: Yes bladder normal to palpation External Female Exam: normal external appearance and normal appearance of the urethra Speculum Exam - Vagina: normal appearance of the vagina, normal palpation, normal vaginal discharge and vagina atrophic Speculum Exam - Cervix: normal appearance of the cervix, normal palpation and Other cervical findings present (Post LEEP appearance bled slightly with Pap) Bimanual exam- vagina & uterus: normal bimanual exam, normal palpation, uterine size normal, bladder normal to palpation, normal palpation and non-tender Bimanual Exam- Adnexa, other: no masses Skin General skin exam: no rashes or lesions noted Rashes: no rashes Neuro General: patient oriented x3 Cognition (Neuro): normal cognition Extrem General: Yes normal to inspection Psych Attitude: cooperative Thought process: Normal thought process present Assessment & Plan Assessment & Plan (1) Encounter for well woman exam with routine gynecological exam: Code(s): Z01.419 - Encounter for gynecological examination (general) (routine) without abnormal findings Plan Discussed: Eating and hydrating before her appointments, felt nauseated and lightheaded hit during her Pap smear exam. Current recommendations for pap smears per ASCCP guidelines. Pap smear obtained today. Breast awareness, periodic self breast exams and yearly mammogram. Maintain a healthy lifestyle, well balanced diet including Calcium 1,200 mg and Vitamin D 600 IU daily, and routine exercise. Contact the office with any postmenopausal bleeding. Patient verbalizes understanding and agrees to the plan of care. She was given opportunity to ask questions and all questions were answered to the best of my ability. RTO in 1 year for annual land surveying survey worker exam. This note is constructed using voice recognition software. While every effort has been made to ensure accuracy, hand sole sewer errors may have been included. Coding Level of Care Code Est Pt Prev Care 40-64y(88192) Diagnoses Encounter for well woman exam with routine gynecological exam Z01.419
[2023-12-22 10:44] VITALS: BP 126/84; BMI 22.1
== END 2023-12-22 11:17 | disposition home or self-care (01) ==
PROVIDERS: PCP Nurse Practitioner Family; Visit Provider Advanced Practice Midwife
DX: Z01.419 Encounter for gynecological examination (general) (routine) without abnormal findings (principal)
CPT/HCPCS: 99396

== ENCOUNTER 2024-05-14 09:02 | Outpatient (REF) | payer OTHER, MEDICAID, SELFPAY ==
[2024-05-14 10:38] LABS: MANUAL DIFF FLAG NO
[2024-05-14 11:35] LABS: Basophils Absolute Auto 0.1 X10*3/uL (0.0-0.2); Basophils Percent Auto 0.6 % (0-2); Eosinophils Percent Auto 0.5 % (0-4); Hematocrit 43.2 % (37.0-47.0); Hemoglobin 14.4 g/dl (12.0-16.0); Imm Gran Abs Auto 0.06 X10*3/uL (0.00-0.03); Imm Gran Pct Auto 0.7 % (0.0-0.4); Lymphocytes Absolute Auto 2.9 X10*3/uL (1.2-4.9); Lymphocytes Percent Auto 35.5 % (20-40); Mean Corpuscular HGB Conc 33.3 g/dl (31.0-35.0); Mean Corpuscular Hemoglobin 31.2 pg (27.0-33.0); Mean Corpuscular Volume 93.5 fL (80.0-98.0); Mean Platelet Volume 10.9 fL (9.4-12.3); Monocytes Absolute Auto 0.7 X10*3/uL (0.1-1.2); Neutrophils Absolute Auto 4.4 x10*3/uL (2.0-8.3); Neutrophils Percent Auto 53.7 % (45-73); Platelet Count 312 X10*3/uL (160-400); Red Blood Count 4.62 X10*6/uL (4.20-5.50); Red Cell Distribution Width 12.8 % (11.0-16.0); White Blood Count 8.1 X10*3/uL (4.8-10.8)
[2024-05-14 11:57] LABS: Appearance Urine Clear; Color Urine Yellow; Glucose Urine UA Negative (Negative); Leukocyte Esterase Urine Negative (Negative); Nitrite Urine Negative (Negative); Urine Blood Negative (Negative); Urine Ketones Negative (Negative); Urine Protein Negative (Neg-Trace)
[2024-05-14 12:32] LABS: Alanine Aminotransferase 20 U/L (0-31); Albumin Level 4.6 g/dL (3.5-5.0); Alkaline Phosphatase 72 U/L (39-117); Anion Gap 13 (12-20); Aspartate Amino Transferase 26 U/L (5-31); Bilirubin Total 0.9 mg/dL (0.0-1.0); Blood Urea Nitrogen 11 mg/dL (9-16); Calcium 9.4 mg/dL (8.4-10.2); Carbon Dioxide 28 mmol/L (22-29); Chloride 104 mmol/L (96-108); Cholesterol 230 mg/dL (<200); Estimated Glomerular Filt Rate > 60; Glucose Random 81 mg/dL (60-115); HDL Cholesterol 65 mg/dL (>40); LDL Cholesterol Calculated 143 mg/dL (<100); Sodium 141 mmol/L (135-145); Total Protein 7.5 g/dL (6.5-8.0); Triglycerides 111 mg/dL (<150)
[2024-05-14 12:55] LABS: Free T4 (Free Thyroxine) 0.93 ng/dL (0.71-1.85); TSH reflex Free T4 1.63 uIU/mL (0.32-4.0)
[2024-05-14 12:56] LABS: Folate 11.4 ng/mL (> or = 4.0); Vitamin B12 536 pg/mL (200-900)
[2024-05-19 12:08] LABS: Vitamin D 25-OH, D2 <4 ng/mL; Vitamin D 25-OH, D3 24 ng/mL; Vitamin D 25-OH, Total 24 ng/mL (30-100)
== END 2024-05-14 09:03 | disposition home or self-care (01) ==
LOC: HO.LAB 09:02
PROVIDERS: PCP Nurse Practitioner Family
DX: Z00.00 Encounter for general adult medical examination without abnormal findings (principal); K22.70 Barrett's esophagus without dysplasia; N13.30 Unspecified hydronephrosis; N13.2 Hydronephrosis with renal and ureteral calculous obstruction; M51.369 Other intervertebral disc degeneration, lumbar region without mention of lumbar back pain or lower extremity pain; R35.89 Other polyuria; F41.9 Anxiety disorder, unspecified; F32.A Depression, unspecified; F17.210 Nicotine dependence, cigarettes, uncomplicated; Z87.442 Personal history of urinary calculi
CPT/HCPCS: 36415; 80053; 80061; 81003; 82306; 82607; 82746; 84439; 84443; 85025; 96127; 99396

== ENCOUNTER 2024-05-14 09:02 | Outpatient (AMB) | payer OTHER, MEDICAID, SELFPAY ==
[2024-05-14 09:12] VITALS: BP 134/82; PULSE 68; O2SAT 97; BMI 23.2
--- NOTE | 2024-05-14 09:12 | A.OFFPC_ITS ---
Vital Signs 05/14/24 09:12 Height 5 ft 1 in Weight 123 lb BMI 23.2 BP 134/82 Blood Pressure Location Lt brachial Position Sitting Pulse 68 Pulse Source Pulse Oximeter Pulse Oximetry (%) 97 Oxygen Delivery Method Room Air Intake Visit Reasons: Establish care from [place]. Director Of Graduate Admissions Required: No Allergies methenamine Allergy (Severe, Verified 05/14/24 09:23) mouth sores morphine [MORPHINE] Allergy (Intermediate, Verified 05/14/24 09:23) NAUSEA & VOMITING Penicillins [PENICILLINS] Allergy (Intermediate, Verified 05/14/24 09:23) rash/swelling sulfamethoxazole [From BACTRIM] Allergy (Intermediate, Verified 05/14/24 09:23) RASH tamsulosin [From FLOMAX] Allergy (Intermediate, Verified 05/14/24 09:23) RASH trimethoprim [From BACTRIM] Allergy (Intermediate, Verified 05/14/24 09:23) RASH hydrochlorothiazide [Maxzide] Allergy (Mild, Verified 05/14/24 09:23) Rash triamterene [Maxzide] Allergy (Mild, Verified 05/14/24 09:23) Rash terazosin Allergy (Verified 05/14/24 09:23) Swelling nitrofurantoin Adverse Reaction (Intermediate, Uncoded 05/14/24 09:23) painful wrists Medication List - Last Reconciled 05/14/24 by Niecy Burgos PA-C No Known Home Meds Tobacco use date assessed: 05/14/24 Dental Screening Dental Screen Date: 05/14/24 Did you have a dental visit in the last 12 months?: No Did you have a dental problem in the last 6 months where you did not have access to dental care?: No Was dental information given to patient?: Patient declined HPI Establish care from [place]. HPI Details 59-year-old female with past medical his tory of Barretts esophagus, nephrolithiasis and hydronephrosis last seen by nurse practitioner coming in for annual exam.? In review of the notes, patient was seen for well woman exam november 2023.? Patient was seen by Urology September 2023 ordered repeat he renal imaging and follow up in 1 year.? Patient completed mammogram May 2023 follow up in 1 year. Colonoscopy was completed January 2022 follow up in 5 years. Patient states she is feeling generally well and has no acute concerns today. She does mentioned that she struggles with anxiety and depression and has for some time. Previously she was seeing a counselor which she found helpful however her long-term counselor transitioned to another practice and no longer accepted her insurance. [facility] Medical History (Updated 05/14/24 @ 11:32 by Niecy Burgos PA-C) Hydronephrosis with renal and ureteral calculous obstruction Back pain Anxiety and depression Renal calculi Bolanos esophagus Surgical History History of surgery History of loop electrical excision procedure (LEEP) Hx of tubal ligation History of esophagogastroduodenoscopy (EGD) H/O colonoscopy Hx of cystoscopy Family History Mother Dementia Father Myocardial infarction Social History Housing: House Alcohol intake: current Alcohol intake frequency: holidays/special occasions only Comment: medicated with po tramadol and pyridium Patient Tobacco Use Status: Current everyday Tobacco user Tobacco use type: Cigarette Cigarettes Per Day: 10 e-Cigarette/Vaping Use: Never Used Second Hand Smoke Exposure: Yes Substance Use Type: Marijuana Advance Directives Date on File: 01/19/21 service: No Current occupational status: employed Cognitive needs: No Hearing needs: No Vision needs: No Female Reproductive History Menstrual Age of Menarche: 12 Questionnaire PHQ-9 Over the last 2 weeks, how often have you been bothered by any of the following problems? 1. Little interest or pleasure in doing things: not at all 2. Feeling down, depressed, or hopeless: several days 3. Trouble falling or staying asleep, or sleeping too much: nearly every day 4. Feeling tired or having little energy: several days 5. Poor appetite or overeating: not at all 6. Feeling bad about yourself - or that you are a failure or have let yourself or your family down: several days 7. Trouble concentrating on things, such as reading the newspaper or watching television: not at all 8. Moving or speaking so slowly that other people could have noticed. Or the opposite - being so fidgety or restless that you have been moving around a lot more than usual: several days 9. Thoughts that you would be better off or of hurting yourself in some way: not at all Total score: 7 Depression Screening Interpretation: Positive Depression Screening Follow-up: Declines treatment and Other (Counseling referral) Depression Screening Done: Yes 11846 - PHQ-9 Billing: Yes Source: Developed by Drs. Bridger Oliver, Sandhya Blackmon, Fadi Mason and colleagues, with an educational parul from [employer]. Thrive Questionnaire Date Thrive assessed: 05/08/24 I am a: Patient What is your living situation today?: I have a steady place to live Within the past 12 months, did the food you bought not last and you didn't have the money to get more?: Sometimes True Within the past 12 months, did you worry whether your food would run out before you got money to buy more?: Sometimes True Do you have trouble paying for medicines?: No Do you have trouble getting transportation to medical appointments?: No Do you have trouble paying your heating and electricity bill?: I choose not to answer this question Do you have trouble taking care of your child, family member or friend?: No Do you have trouble with day-to-day activities such as bathing, preparing meals, shopping, managing finances, etc.?: No Are you currently unemployed and looking for a job?: No Are you interested in more education?: No Please select the resources that you would like help with: None Currently or been in a relationship where the following occur: No concerns reported THRIVE Score: 2 AUDIT C Alcohol Use Questionnaire (AUDIT-C) 1. How often do you have a drink containing alcohol?: Never 3. How often do you have six or more drinks on one occasion?: Never Total Score: 0 DELORES-7 AMB Questionnaire DELORES-7 Date DELORES - 7 assessed: 05/14/24 Feeling nervous, anxious, or on edge: 1 = Several days Not being able to stop or control worryin = Nearly every day Worrying too much about different things: 3 = Nearly every day Trouble relaxin = Several days Being so restless that it is hard to sit still: 1 = Several days Becoming easily annoyed or irritable: 1 = Several days Feeling afraid as if something awful might happen: 0 = Not at all Total DELORES-7 score (0-4 normal; 5-9 mild; 10-14 moderate; 15-21 severe): 10 Source: Developed by Drs. Bridger Oliver, Sandhya Blackmon, Fadi Mason and colleagues, with an educational parul from [employer]. DELORES-7 Assessment Billing DELORES-7 Assessment Tool: DELORES-7 Assessment 52790 Review of Systems Const Denies body aches, Denies fatigue, Denies fever(s), Denies frequent falls, Denies headache(s) and Denies weakness Eyes Reports no additional complaints and Denies change in vision ENT Denies dysphagia, Denies dizziness, Denies facial pain, Denies headache(s), Denies nasal congestion and Denies odynophagia Card Reports chest pain (Anxiety induced), Denies syncope, Denies irregular heart rhythm, Denies leg edema, Denies lightheadedness and Denies dyspnea Resp Denies cough and Denies dyspnea GI Denies abdominal pain, Denies constipation, Denies dysphagia, Denies dyspepsia, Denies diarrhea, Denies nausea, Denies odynophagia and Denies vomiting Denies urinary frequency, Denies dysuria, Denies urinary hesitancy and Denies urinary urgency Musc Denies back pain and Denies myalgias Skin/Breast Reports system reviewed and no additional complaints, except as documented Neuro Denies dizziness, Denies syncope, Denies frequent falls, Denies headache(s) and Denies weakness Psych Reports anxiety and Reports depression Endo Denies fatigue Physical exam (Primary Care) Vital Signs: Last Vital Signs Pulse 68 05/14/24 09:12 BP 134/82 05/14/24 09:12 Pulse Ox 97 05/14/24 09:12 Oxygen Delivery Method Room Air 05/14/24 09:12 BMI result Body Mass Index 23.2 Tobacco/Smoking Status: Tobacco use Status Tobacco use date assessed 05/14/24 05/14/24 09:20 Patient Tobacco Use Status Current everyday Tobacco 05/14/24 09:20 Tobacco use type Cigarette 05/14/24 09:20 e-Cigarette/Vaping Use Never Used 05/14/24 09:20 Are you ready to quit: No Tobacco cessation counseling provided: Yes Items discussed: Nicotine replacement Relapse Prevention: discussed the importance of a supportive environment, discussed negative mood or depression after quitting and discussed dietary, exercise and/or lifestyle changes Number of minutes spent counselin CPT code: 60479 - 4-10 Minutes PHQ-9: PHQ-9 Score PHQ-9: Total score 7 05/14/24 09:27 Depression Screening Interpretation: Positive Depression Screening Follow-up: Declines treatment and Other (Counseling referral) Thrive Assessment: Date of Thrive Assessment Date Thrive assessed 05/08/24 05/14/24 09:20 Currently or been in a relationship where the following occur: No concerns reported Const General: cooperative, healthy appearing, comfortable and no acute distress Orientation/consciousness: patient oriented x3 HENMT Head: Yes normocephalic Ears: hearing grossly normal bilaterally General nose exam: Normal external nose present Face and sinus: Yes normal facial exam and Yes sinuses nontender Mouth: Normal oral and palatal mucosa present and tongue normal Throat: Yes posterior oropharynx normal Eyes General: appearance normal, both eyes and all related structures Conjunctivae: conjunctivae normal Pupils: Equal, round and reactive pupils present EOM: EOMs intact bilaterally and No Nystagmus present Neck Neck: Yes full ROM and Yes no lymphadenopathy Chest Chest palpation & inspection: normal inspection of the chest Resp Effort & Inspection: normal respiratory effort Auscultation: clear to auscultation bilaterally, no crackles, no rales, no rhonchi and no wheezes Cardio Rate: regular rate Rhythm: regular rhythm Peripheral pulses: radial pulses present and dorsalis pedis present GI Inspection: Yes normal to inspection and No Abdominal wall edema Palpation (GI): Soft to palpation, not firm and nontender Auscultation: normal bowel sounds Rectal Exam - Female: deferred General: Yes no CVA tenderness Back/Spine/Pelvis Back: no CVA tenderness Skin General skin exam: no rashes or lesions noted Neuro General: patient oriented x3 Cranial nerves: Yes Equal, round and reactive pupils present, Yes Midline tongue present, Yes Ability to bilaterally elevate shoulders present and No Nystagmus present Gait exam (Neuro): Normal gait present Extrem General: Yes normal to inspection, Yes full ROM and No edema Psych Speech and movement: Normal speech and movement present Affect: normal affect Attitude: cooperative Insight: Good insight present (Psych) Judgement: Good judgement present (Psych) Coding Level of Care Code New Pt Prev Care 40-64y(25942) Diagnoses Bolanos esophagus K22.70 Nephrolithiasis N20.0 Hydronephrosis with renal and ureteral calculous obstruction N13.2 Anxiety and depression F41.9; F32.A Degenerative disc disease, lumbar M51.369 Annual physical exam Z00.00 Tobacco use Z72.0 Additional Codes DELORES-7 Assessment Billing - DELORES-7 Assessment Tool: DELORES-7 Assessment 09009 ([id number]) Vital Signs *Quality* - CPT code: 87180 - 4-10 Minutes ([id number]) Assessment & Plan Assessment & Plan (1) Bolanos esophagus: Code(s): K22.70 - Bolanos's esophagus without dysplasia Category: Medical Plan: Not currently on medical management and declines medication at this time. Feels her reflux is under good control. Avoid trigger foods such as citrus, tomato products, soda, caffeine, spicy foods and other foods that may be irritating to your stomach. Avoid laying flat 3-4 hours after eating and elevate the head of the bed 30 degrees to prevent acid from moving into the esophagus. (2) Nephrolithiasis: Code(s): N20.0 - Calculus of kidney Category: Medical Plan: Continue to follow with Urology with repeat ultrasound and follow up in 1 year. (3) Hydronephrosis with renal and ureteral calculous obstruction: Code(s): N13.2 - Hydronephrosis with renal and ureteral calculous obstruction Category: Medical Plan: Continue to follow up with Urology in 1 year. (4) Anxiety and depression: Code(s): F41.9 - Anxiety disorder, unspecified; F32.A - Depression, unspecified Category: Medical Plan: Patient does struggle with anxiety and depression and used a counselor in the past with good benefit. Referral placed for counseling referral and patient declined the need for medication at this time. Advised patient to follow up as needed for this concern. (5) Degenerative disc disease, lumbar: Code(s): M51.369 - Other intervertebral disc degeneration, lumbar region without mention of lumbar back pain or lower extremity pain Category: Medical Plan: Patient has a history of degenerative disc disease and uses Tylenol and ibuprofen as needed for this concern. (6) Annual physical exam: Code(s): Z00.00 - Encounter for general adult medical examination without abnormal findings Category: Medical Plan: Patient is up-to-date on all recommended screenings for her age. She does not qualify for lung cancer screening program however she continues to smoke half pack a day we will qualify in 3-5 years. She is not up-to-date with her tetanus vaccination and declined at this visit advised to make appointment with nurse to schedule at earliest convenience. Ordered for updated blood work and follow up yearly pending blood work results or if she has additional complaints. (7) Tobacco use: Code(s): Z72.0 - Tobacco use Category: Medical Plan: Smoking cigarettes and the use of tobacco can be harmful. We discussed the importance of stopping and options to aid in smoking cessation. Declines nicotine replacement therapy at this time and has previously been on Wellbutrin. Plan This note was constructed using voice recognition software. While every effort has been made to ensure accuracy and studio owner, still areas may have been included sometimes these areas may affect the content or meeting of the given symptoms. Total time spent caring for the patient today was 30 minutes. This includes time spent before the visit reviewing the chart, time spent during the visit, and time spent after the visit and documentation. Orders: Orders Comprehensive Met. Panel Today Z00.00 - Encounter for general adult medical examination without abnormal findings TSH reflex Free T4 Today Z00.00 - Encounter for general adult medical examination without abnormal findings Free T4 (Free Thyroxine) Today Z00.00 - Encounter for general adult medical examination without abnormal findings Complete Blood Count Auto Diff Today Z00.00 - Encounter for general adult medical examination without abnormal findings Vitamin B12 and Folate Today Z00.00 - Encounter for general adult medical examination without abnormal findings Vitamin D 25-OH (D2 and D3) Today Z00.00 - Encounter for general adult medical examination without abnormal findings Lipid Panel Today Z00.00 - Encounter for general adult medical examination without abnormal findings UA CC w/rflx Micro + Cult Today R35.89 - Other polyuria Referrals Counseling Referral F32.A - Depression, unspecified, F41.9 - Anxiety disorder, unspecified
== END 2024-05-14 09:46 | disposition home or self-care (01) ==
PROVIDERS: PCP Nurse Practitioner Family
DX: Z00.00 Encounter for general adult medical examination without abnormal findings (principal); K22.70 Barrett's esophagus without dysplasia; N20.0 Calculus of kidney; N13.2 Hydronephrosis with renal and ureteral calculous obstruction; F41.9 Anxiety disorder, unspecified; F32.A Depression, unspecified; M51.369 Other intervertebral disc degeneration, lumbar region without mention of lumbar back pain or lower extremity pain; Z72.0 Tobacco use

== ENCOUNTER 2024-06-28 11:19 | Outpatient (REF) | payer OTHER, MEDICAID, SELFPAY ==
--- NOTE | ~2024-06-28 | MM_ITS ---
EXAMINATION: MM SCREENING DIGITAL BREAST TOMOSYNTHESIS, BILATERAL CLINICAL INFORMATION: Screening. Asymptomatic. COMPARISON: Mammography: Comparison is made with available priors TECHNIQUE: Digital breast mammography with tomosynthesis is performed in both the craniocaudal and mediolateral oblique views along with computer-aided detection (CAD). FINDINGS: The breasts are extremely dense, which lowers the sensitivity of mammography (ACR BI-RADS breast composition Category d). There are no significant masses, abnormal calcifications, or other abnormalities. MM/MM tomosynthesis screening BI IMPRESSION: No mammographic evidence of malignancy. ASSESSMENT: BI-RADS BI-RADS 1 - Negative RECOMMENDATION: Routine annual mammography screening. 1 year F/U This examination should not preclude the clinical evaluation of a suspicious palpable abnormality. This patient's information was entered into a reminder system with a target due date for their next mammogram. Electronically signed by: Imelda Ibrahim DO 07/04/2024 11:11 AM [facility]
== END 2024-06-28 11:20 | disposition home or self-care (01) ==
LOC: HO.MAMMO 11:19
DX: Z12.31 Encounter for screening mammogram for malignant neoplasm of breast (principal)
CPT/HCPCS: 77063; 77067

== ENCOUNTER → 2024-06-28 11:30 | Outpatient (BNV) | payer OTHER, MEDICAID, SELFPAY | PROVIDERS: Visit Provider Internal Medicine | DX: Z12.31 Encounter for screening mammogram for malignant neoplasm of breast (principal) | CPT/HCPCS: 77063; 77067 ==

== ENCOUNTER 2024-10-08 10:27 | Outpatient (REF) | payer MEDICAID, SELFPAY ==
--- NOTE | ~2024-10-08 | US_ITS ---
EXAMINATION: US KIDNEY BILATERAL HISTORY: N20.0 - Calculus of kidney TECHNIQUE: Real-time grayscale ultrasound imaging of the kidneys was performed and images were reviewed. COMPARISON: Comparison is made with the prior examination dated 09/27/2023. FINDINGS: Right kidney: The right kidney measures 10.3 x 5.4 x 4.7 cm. Renal parenchymal echotexture and thickness are normal. There are no masses. There is no hydronephrosis or renal calculi. Left Kidney: The left kidney measures 10.7 x 4.4 x 5.3 cm. Renal parenchymal echotexture and thickness are normal. There are no masses. There is no hydronephrosis or renal calculi. US/US renal BI IMPRESSION: Unremarkable renal ultrasound. Electronically signed by: Bridger Payton MD 10/08/2024 12:46 PM EDT
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
== END 2024-10-08 10:28 | disposition home or self-care (01) ==
LOC: HO.US 10:27
PROVIDERS: Visit Provider Urology
DX: N20.0 Calculus of kidney (principal)
CPT/HCPCS: 76775

== ENCOUNTER → 2024-10-08 10:30 | Outpatient (BNV) | payer MEDICAID, SELFPAY | PROVIDERS: Visit Provider Radiology Diagnostic Radiology | DX: K86.2 Cyst of pancreas (principal); N20.0 Calculus of kidney | CPT/HCPCS: 76775 ==

== ENCOUNTER 2024-10-16 10:46 | Outpatient (AMB) | payer MEDICARE, MEDICAID, SELFPAY ==
--- NOTE | 2024-10-16 10:51 | A.OFFVIS_ITS ---
Intake Visit Reasons: 1y/US(US PENDING) Intake Note: Patient is Present for 1y Follow Up/US Urology Medication: none Antibiotic Allergies: Penicillin, Sulfa, Trimethroprim,Nitrofuratoin,Methedamine Blood Thinners: None Java Developer Analyst Required: No Allergies methenamine Allergy (Severe, Verified 10/16/24 10:52) mouth sores morphine [MORPHINE] Allergy (Intermediate, Verified 10/16/24 10:52) NAUSEA & VOMITING Penicillins [PENICILLINS] Allergy (Intermediate, Verified 10/16/24 10:52) rash/swelling sulfamethoxazole [From BACTRIM] Allergy (Intermediate, Verified 10/16/24 10:52) RASH tamsulosin [From FLOMAX] Allergy (Intermediate, Verified 10/16/24 10:52) RASH trimethoprim [From BACTRIM] Allergy (Intermediate, Verified 10/16/24 10:52) RASH hydrochlorothiazide [Maxzide] Allergy (Mild, Verified 10/16/24 10:52) Rash triamterene [Maxzide] Allergy (Mild, Verified 10/16/24 10:52) Rash terazosin Allergy (Verified 10/16/24 10:52) Swelling nitrofurantoin Adverse Reaction (Intermediate, Uncoded 10/16/24 10:52) painful wrists HPI Comments Details: Maxine is a pleasant female. She is a patient of Dr. Chino. She is seen for the following urologic conditions - recurrent nephrolithiasis Renal ultrasound negative Continue with lemon juice and surveillance imaging Urinary Symptoms Review - Increased frequency of urination - Urgency of urination - Occasional incontinence - Difficulty holding urine - Observed sensitivity to coffee, chocolate, and spicy foods - Regular intake of fluids and lemon juice to prevent stone formation Nephrolithiasis/Urolithiasis:? Last procedure 07/15 left ureteroscopy ? They are here for further evaluation of nephrolithiasis. ? Urolithiasis was diagnosed 08/12 [facility] with bilateral distal stones. ? The patient previously had kidney stones whose composition w 08/12 , calcium oxalate - dihydrate, calcium phosphate - hydroxyapatite - 07/15 carbonate apatite 85%, triple phos 15% ? Laboratory investigations include - 07/15 Ca 9.7, 04/16 normal stone labs ? 24 Hour urine evaluation 09/12 , Low Urine volume < 2.0 liters, Low calcium < 200, High Citrate, Low Oxalate < 30, low sodium. ? Prior treatment(s) include 08/12 bilateral USR - 01/12? left mid ureteric stone with USR - 07/15 left ureteroscopy ? Prior imaging includes 03/12 , a renal ultrasound 2mm stone on left ? 07/12 , a CT (computed tomography) scan of the abdomen/pelvis (stone protocol), 3mm stone distal left ureter with hydronephrosis ? 10/11 , a renal ultrasound, showing no evidence of stones ? 04/13 , a renal ultrasound 8mm Left stone - 02/11 renal ultrasound no evidence of stones, hydronephrosis resolved -07/15 - CT- Obstructing 6 mm distal left ureteral calculus with associated hydronephrosis. - 10/14 renal ultrasound possible punctate stone left side - 04/16 renal ultrasound no evidence of stones - 10/15 renal ultrasound evidence of stones - 10/16 renal ultrasound negative for stone PFSH Medical History (Updated 10/16/24 @ 11:01 by Samuel Gee MD) Hydronephrosis with renal and ureteral calculous obstruction Back pain Anxiety and depression Renal calculi Bolanos esophagus Surgical History History of surgery History of loop electrical excision procedure (LEEP) Hx of tubal ligation History of esophagogastroduodenoscopy (EGD) H/O colonoscopy Hx of cystoscopy Family History Mother Dementia Father Myocardial infarction Social History Housing: House Alcohol intake: current Alcohol intake frequency: holidays/special occasions only Comment: medicated with po tramadol and pyridium Patient Tobacco Use Status: Current everyday Tobacco user Tobacco use type: Cigarette Cigarettes Per Day: 10 e-Cigarette/Vaping Use: Never Used Second Hand Smoke Exposure: Yes Substance Use Type: Marijuana Advance Directives Date on File: 01/19/21 service: No Current occupational status: employed Cognitive needs: No Hearing needs: No Vision needs: No Female Reproductive History Menstrual Age of Menarche: 12 Review of Systems Const Denies chills and Denies fever(s) Card Reports no additional complaints and Denies syncope Resp Denies cough GI Denies abdominal pain and Denies heartburn Reports as per HPI and Denies change in libido Neuro Denies syncope Psych Denies change in libido Endo Denies change in libido Physical Exam Const General: cooperative, healthy appearing, comfortable and no acute distress Orientation/consciousness: patient oriented x3 HEENT Face and sinus: Yes normal facial exam Mouth: moist mucous membranes Neck Neck: Yes normal visual inspection, Yes full ROM and Yes trachea midline Chest Chest palpation & inspection: normal inspection of the chest Resp Effort & Inspection: normal respiratory effort, able to speak in complete sentences and no respiratory distress GI Inspection: Yes normal to inspection Back/Spine/Pelvis Cervical Spine: normal cervical lordosis Thoracic/Lumbar Spine: thoracic and lumbar spine normal to inspection Skin General skin exam: no rashes or lesions noted Neuro General: patient oriented x3, gait normal, tone normal and moves all extremities Extrem General: Yes normal to inspection and Yes capillary refill normal Assessment & Plan Assessment & Plan (1) Nephrolithiasis: Code(s): N20.0 - Calculus of kidney Category: Medical (2) Urinary urgency: Code(s): R39.15 - Urgency of urination Category: Medical Plan Plan Continue increased fluid intake and lemon juice consumption for nephrolithiasis prevention. Avoid dietary irritants, including coffee, chocolate, and spicy foods, to manage urinary frequency and urgency. Follow up with renal ultrasound in one year. No medication changes or additional interventions required. Current management effective and will continue monitoring. Discussion Notes I discussed with the patient the successful management of nephrolithiasis with current lifestyle modifications, highlighting the absence of renal stones on recent imaging. We reviewed her increased fluid intake and lemon juice consumption, which have improved urinary parameters, and agreed on the importance of continued adherence. I explained the age-related nature of her urinary symptoms, emphasizing dietary management, including avoidance of known irritants. No new diagnostic interventions were proposed given the stability of her condition. We settled on a plan for routine follow-up imaging in one year, as the patient feels well with no recurrence of stones. Patient Instructions - Continue drinking plenty of fluids each day. - Add lemon juice to water regularly to help prevent kidney stones. - Avoid coffee, chocolate, and spicy foods to manage urinary symptoms. - Monitor any changes in urinary habits. - Follow up in one year for a routine ultrasound. - Contact the office if experiencing significant changes or concerns with urinary symptoms. Orders: Orders US renal BI 12 Months N20.0 - Calculus of kidney Patient Instructions: This note is constructed using voice recognition software. While every effort has been made to ensure accuracy track liner operator errors may have been included. Imaging studies, laboratory and physical exam results were discussed and reviewed in detail. No major barriers to patient understanding were identified. An opportunity to ask questions regarding the treatment plan was provided. All questions were answered. The patient expressed understanding and agreement with the above treatment plan. The patient is aware they should contact our office by phone for worsening of their current condition or the appearance of new urologic symptoms. Compliance is encouraged with any medications and followup testing that is ordered. It is a privilege to participate in the urologic care of your patient. If you have any questions or concerns regarding treatment for the above conditions, or other urologic issues, please do not hesitate to contact me. The office telephone contact is [phone]. Sincerely, Dr Samuel Gee MD, YINKA [facility] - Urology Compassionate Specialist Care for the Genitourinary System Coding Level of Care Code Est Pt Level 4 (75874) Diagnoses Nephrolithiasis N20.0 Urinary urgency R39.15
--- OUTSIDE RECORDS SUMMARY | 2024-10-16 13:05 | XMS_ITS | Clinical Summary ---
Author Organization [facility] Address [address] [place] [address] Care Team Providers Care Food And Nutrition Professor Name Role Phone Jass Arguello MD Primary Care Provider [phone] Surgical History Surgery Date Site/Laterality Comments TUBAL [...] age to complete this topic Care Teams Food And Nutrition Professor Relationship Specialty Start Date End Date Jass Arguello MD [address], [place] PCP - General 03/28/08
--- OUTSIDE RECORDS SUMMARY | 2024-10-16 13:05 | XMS_ITS | Encounter Summary ---
Author Organization [facility] General [facility] Address [address] [place] [phone] Phone Care Team Providers Care Switchboard Wire Worker Helper Name Role Phone Unavailable Primary Care Provider Unavailabl e Encounter Details Date Type Department Care Team (Late st Contact Info) Description 09/21/2010 Hospital Encounter [facility] General Imaging [address] [place] [address] Ron Vee MD, PhD [address] [place] [address] [email or web address] Social History Tobacco Use Types Packs/Day Years [...] Answer Date Recorded No 12/19/2022 No 12/19/2022 No 12/19/2022 Reliable internet access at home? Not on file 12/19/2022 Device with a working camera? Not on file Sex and Gender Information Value Date Recorded Sex Assigned at Not on file Gender Identity Not on file Sexual Orientation Not on file documented as of this encounter Plan of Treatment Not on file documented as of this encounter Procedures Procedure Name Priority Date/Time Associated Diagnosis Comments MRI SPINE MUSCULOSKELETAL FOCUS OUTSIDE (NO INTERPRETATION) Routine 09/21/2010 12:00 AM EST documented in this encounter Results * MRI Spine (Bone) Outside (No Interpretation) (09/21/2010 12:00 AM EST) Narrative [facility] IMG INTERFACES - 10/12/2019 10:26 AM EDT This study is for PACS storage only and not for interpretation. Ron Vee MD, PhD IMG O UTSIDE IM[facility]ING W/OUT [facility]PRETATION [facility] documented in this encounter Visit Diagnoses Not on filedocumented in this encounter Additional Source Comments The information contained in this document represents components of the legal health record. It is not the complete legal health record.[facility]
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
--- OUTSIDE RECORDS SUMMARY | 2024-10-16 13:05 | XMS_ITS | Clinical Summary ---
Author Organization [facility] Address [address] [place] [phone] Phone Care Team Providers Care Radio Maintainer Name Role Phone Kalie Chino MD Primary Care Provider Allergies Active Allergy Reactions Criticality Noted Date Comments Tamsulosin Itching,Swelling 08/26/2017 Penicillins Hives 01/22/2011 Sulfa (Sulfonamide Antibiotics) Nausea and/or Vomiting 08/26/2017 Triamterene Swelling 08/26/2017 Medications Medication Sig Dispensed Refills Start Date End Date Status omeprazole (PRILOSEC) 20 MG capsule Take 1 capsule (20 mg total) by mouth daily. 30 capsule 11 10/31/2017 Active cyclobenzaprine (FLEXERIL) 10 MG tablet TAKE 1 TABLET BY MOUTH 3 TIMES A DAY NEEDED FOR MUSCLE SPASMS. 45 tablet 04/24/2018 Active Active Problems Problem Noted Date Diagnosed Date Chronic pain of right knee 10/26/2019 Assessment & Plan (02/06/2020 8:54 AM EDT): Reports excessive pain in the right knee joint. Locates the pain mostly on the peripatellar area and lateral aspect. She was unable to receive any formal PT due to pandemic and restrictions. Did some home exercises, but continues to have pain in the right knee. Endorses swelling as well as knee locking of the right knee joint. Mentions that this has ruined her quality of life to some extent. She has been wearing metal Alexandro brace intermittently, with partial benefits. Feels more dependent on the Alexandro brace. Additionally, reports that she was seen by Dr. Brown Stewart back in 2000, for her back surgery. ?? Reviewed and discussed imaging studies extensively with the patient. Alignment of the knee is stable. ?? 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 ?? Discussed in detail clinical manifestation of patello-femoral syndrome. ?? Recommended core muscle exercises in order to optimize muscle strength and improvement in knee pain. ?? Explained that she will have to keep doing the exercises for the rest of her life in order to have prolonged benefits. ?? We also discussed alternatives such as steroid injection if the problem persists or worsens despite treatment with formal PT. ?? Knee replacement not warranted at this point, in terms of arthritis. ?? Discussed benefits of knee joint exercises in detail, which may eventually help optimize the patient for knee replacement if this is to be considered in the future. ?? May refer to her Spine Surgery in case of any concerns related to her back. ?? All the patient's questions were answered to satisfaction. ?? Ambulatory referral to External Physical Therapy provided for home program exercises. ?? Follow up in three months to assess her response to treatment with formal PT. Pigmented villonodular synovitis of right knee 0 10/26/2019 Assessment & Plan (02/06/2020 8:54 AM EDT): Has a PVNS of the right knee posterior aspect. This is not causing any particular symptoms. ?? Stable. ?? Reviewed and discussed imaging studies, consistent with questionable PVNS. ?? Biopsy not warranted at this point, rationale reviewed. ?? We will continue to monitor with a repeat MRI in one year and decide if fixation is necessary based on her symptoms or change in size. ?? Explained that her case was presented in our radiology conference and the consensus was drawn that it is a nodular synovitis. ?? Counseled that her knee symptoms are less likely related to the cyst. ?? Explained that we will avoid any surgical intervention until she has any symptoms related to the cyst. ?? We discussed course of illness and risk of change in the size of the cyst, which does not mean a malignant transformation. ?? All the patient's questions were answered to her satisfaction. ?? Advised to monitor symptoms closely and reach out in case of any concerns. ?? Follow up in three months or sooner if needed. Anxiety 08/26/2017 Bunion 08/26/2017 Degeneration of lumbosacral intervertebral disc 08/26/2017 Herniation of right side of L4-L5 intervertebral disc 08/26/2017 Mixed hyperlipidemia 08/26/2017 Vitamin D deficiency 08/26/2017 Nephrolithiasis 08/26/2017 Immunizations Name Administration Dates Next Due DTaP, unspecified formulation 11/03/2009 Influenza Trivalent w/ Preservative IM 3 Influenza, Unspecified Formulation 06/16/2010 Family History Medical History Relation Comments No Known Problems Daughter 1 No Known Problems Daughter 2 Early Father Heart disease Father Diabetes Mother Hyperlipidemia Mother Hypertension Mother Relation Status Comments Daughter 1 Alive Daughter 2 Alive Father (Age 50) Mother Alive Sister Alive Social History Tobacco Use Types Packs/Day Years Used Date Smoking Tobacco: Every Day Cigarettes Smokeless Tobacco: Never Tobacco Cessation:Ready to Q uit: No; Counseling Given: Yes Comments:6 cigarettes daily Alcohol Use Standard Drinks/Week [...] on file Sexual Orientation Not on file Last Filed Vital Signs Vital Sign Reading Time Taken Comments Blood Pressure 144/94 07/31/2018 4:13 PM EST Pulse 87 07/31/2018 4:13 PM EST Temperature 36.6 ??C (97.9 ??F) 07/31/2018 4:13 PM ES T Respiratory Rate 16 07/31/2018 4:13 PM EST Oxygen Saturation 99% 07/31/2018 4:13 PM EST Inhaled Oxygen Concentration - - Weight 61.2 kg (135 lb) 07/31/2018 4:13 PM EST Height 153.7 cm (5' 0.51 ) 07/31/2018 4:13 PM ES T Body Mass Index 25.92 07/31/2018 4:13 PM EST Plan of Treatment Health Maintenance Due Date Last Done Comments Adult Td,Tdap Booster 1965 SMOKING Hx and SMOKELESS TOBACCO SCREENING 1979 HEPATITIS B SCREENING 1984 HEPATITIS C SCREENING 1984 HIV ONE-TIME SCREENING (18-6 5 YEARS) 1984 HEPATITIS B VACCINES (1 of 3 - 19+ 3-dose series) 1985 PNEUMOCOCCAL VACCINES (50+ years) (1 of 2 - PCV) 1985 COLOGUARD 2011 COLONOSCOPY 2011 COLORECTAL CANCER SCREENING 2011 FIT TEST 2011 FOBT 2011 SIGMOIDOSCOPY 2011 VIRTUAL COLONOSCOPY 2011 ZOSTER VACCINES (1 of 2) 2016 DEPRESSION SCREENING 08/26/2018 08/26/2017, 08/26/2017 MAMMOGRAM 10/01/2018 10/01/2016 LIPID PANEL 07/11/2019 07/11/2014 PAP SMEAR 08/26/2020 08/26/2017, 08/26/2017, 02/18/2012 INFLUENZA VACCINE (#1) 2024 3, 07/06/2013, 06/16/2010 COVID-19 VACCINE (1 - 2023-2 5 season) 2024 HEPATITIS A VACCINES Aged Out No long er eligible based on patient's age to complete this topic HIB VACCINES Aged Out No longer eligi ble based on patient's age to complete this topic MENINGOCOCCAL VACCINES (ACWY) Aged Out No longer eligible based on patient's age to complete this topic Medical Devices Not on file Procedures Procedure Name Priority Date/Time Associated Diagnosis Comments PAP TEST Routine 08/26/2017 12:00 AM EST from Last 3 Months or Most Recently Relevant to Health Maintenance Results * Pap Smear (08/26/2017 12:00 AM EST) 08/26/2017 08/27/2017 1:0 7 PM EST Narrative SEE NARRATIVE - 09/02/2017 8:41 AM EST [address] [address] Student Services Representative: Joyce Caal MD ?? OIL SCOUT Cytology Report FINAL DIAGNOSIS A. ??PAP SMEAR (SUREPATH) C: SPECIMEN ADEQUACY: Satisfactory for evaluation; transformation zone present. INTERPRETATION: NEGATIVE FOR INTRAEPITHELIAL LESION OR MALIGNANCY. Electronically Signed Out By: ??REYMUNDO Jeffrey(ASCP) Darnell Herrera The Pap test is a screening test primarily for squamous cancers and precursors and has associated false-negative and false-positive results. ??New technologies such as liquid-based preparations may decrease but will not eliminate all false-negative results. ??Regular sampling and follow-up of unexplained clinical signs and symptoms are recommended to minimize false negative results. PROCEDURES/ADDENDA HPV Testing (Requested) Ordered Date: 08/27/2017 ? HPV Test Negative for high risk human papillomavirus types 16, 18 and the Other high risk probe set (Includes 31, 33, 35, 39, 45, 51, 52, 56, 58, 59, 66, 68) by Mary cobase 4800 HR-HPV analysis. Clinical correlation is advised. This HPV test was performed at [facility], [address] [place] [address]. The accuracy and precision of this test has been verified in the Cytopathology laboratory of the [facility]. This test has not been cleared or approved by the U.S. Food and Drug Administration (FDA). ? CLINICAL HISTORY Date of Last Menstrual Period: ??~03/09 Menstrual History: ??Post Menopausal Other Clinical Conditions: ??Screening Pap SPECIMEN SOURCE A: PAP SMEAR (SUREPATH) C Patient Name: ??MAXINE AGUILARNaun : ??1965 (Age: 52) Sex: ??F Institution: ??[facility] Location: ??[facility] Date of Collection: ??08/26/2017 Date of Reported: ??09/02/2017 08:41 Results to: Kacy Jovel MSN, BSN Kacy Jovel NP CYTOLOGY ORDERABLES SEE NARRATIVE from Last 3 Months or Most Recently Relevant to Health Maintenance Care Teams Radio Maintainer Relationship Specialty Start Date End Date Kalie Chino MD [address] [place] [phone] PCP - General Family Medicine 10/05/19 Additional Source Comments The information contained in this document represents components of the legal health record. It is not the complete legal health record.[facility]
== END 2024-10-16 11:04 | disposition home or self-care (01) ==
LOC: HO.HUSH 10:47
PROVIDERS: PCP Nurse Practitioner Family; Visit Provider Urology
DX: N20.0 Calculus of kidney (principal); R39.15 Urgency of urination
CPT/HCPCS: 99214

== ENCOUNTER → 2024-10-16 10:46 | Outpatient (BNVA) | payer MEDICARE, MEDICAID, SELFPAY | PROVIDERS: PCP Nurse Practitioner Family; Visit Provider Urology | DX: N20.0 Calculus of kidney (principal); R39.15 Urgency of urination | CPT/HCPCS: 99212 ==

== ENCOUNTER 2025-01-01 10:20 | Outpatient (AMB) | payer MEDICARE, MEDICAID, SELFPAY ==
--- NOTE | 2025-01-01 10:23 | A.OFFVIS_ITS ---
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 Accessioner: Accessioner Present (Rosina) Accompanied by: Self / Same As Patient Allergies methenamine Allergy (Severe, Verified 01/01/25 10:28) mouth sores morphine [MORPHINE] Allergy (Intermediate, Verified 01/01/25 10:28) NAUSEA & VOMITING Penicillins [PENICILLINS] Allergy (Intermediate, Verified 01/01/25 10:28) rash/swelling sulfamethoxazole [From BACTRIM] Allergy (Intermediate, Verified 01/01/25 10:28) RASH tamsulosin [From FLOMAX] Allergy (Intermediate, Verified 01/01/25 10:28) RASH trimethoprim [From BACTRIM] Allergy (Intermediate, Verified 01/01/25 10:28) RASH hydrochlorothiazide [Maxzide] Allergy (Mild, Verified 01/01/25 10:28) Rash triamterene [Maxzide] Allergy (Mild, Verified 01/01/25 10:28) Rash terazosin Allergy (Verified 01/01/25 10:28) Swelling nitrofurantoin Adverse Reaction (Intermediate, Uncoded 10/16/24 10:52) painful wrists Is last menstrual period known: No Post menopausal: No Patient : No HPI Comments Details: She is a postmenopausal woman presenting for her annual edge plugger examination. She is doing well with no edge plugger concerns: Left breast pain since her last mammogram worse when moving leaning forward and raising her arm. Currently not sexually active, due to partner medical concerns. Denies any vaginal dryness or irritation. STI testing offered; she declines. Attempting to eat a healthy diet with calcium and vitamin D and stays active with exercise. Last pap smear; 2023, negative. Last mammogram; 2023. Colonoscopy is UTD. Denies any family history of breast, ovarian or colon cancer. [facility] Medical History Breast pain, left Hydronephrosis with renal and ureteral calculous obstruction Back pain Anxiety and depression Renal calculi Bolanos esophagus Surgical History History of surgery History of loop electrical excision procedure (LEEP) Hx of tubal ligation History of esophagogastroduodenoscopy (EGD) H/O colonoscopy Hx of cystoscopy Family History Mother Dementia Father Myocardial infarction Social History Housing: House Alcohol intake: current Alcohol intake frequency: holidays/special occasions only Comment: medicated with po tramadol and pyridium Patient Tobacco Use Status: Current everyday Tobacco user Tobacco use type: Cigarette Cigarettes Per Day: 10 e-Cigarette/Vaping Use: Never Used Second Hand Smoke Exposure: Yes Substance Use Type: Marijuana Advance Directives Date on File: 01/19/21 Patient : No service: No Current occupational status: employed Cognitive needs: No Hearing needs: No Vision needs: No Female Reproductive History Menstrual Age of Menarche: 12 control method: none Total pregnancies: 5 Full term: 2 Ab induced: 1 Ab spontaneous: 2 Date of last pap smear: 12/22/23 (negative pap smear, negative hpv ) History of abnormal pap smear: Yes (1998 LEEP-POP 1) Date of Mammogram: 06/28/24 (bi rad 1) Review of Systems Const All systems reviewed & are unremarkable except as noted in HPI and below Reports as per HPI Eyes Reports no additional complaints ENT Reports no additional complaints Card Reports no additional complaints Resp Reports no additional complaints GI Reports as per HPI and Reports no additional complaints Reports as per HPI Musc Reports no additional complaints Skin/Breast Reports as per HPI Neuro Reports no additional complaints Psych Reports no additional complaints Endo Reports no additional complaints Magen/Lymph Reports no additional complaints Aller/Immun Reports no additional complaints Physical Exam Vital Signs: Last Vital Signs BP 124/72 01/01/25 10:29 BMI result Body Mass Index 23.6 Const General: cooperative, healthy appearing, no acute distress, well developed and alert Orientation/consciousness: patient oriented x3 HEENT Head: Yes normal to inspection Eyes General: appearance normal, both eyes and all related structures Neck Neck: Yes normal visual inspection Thyroid: Thyroid normal Chest Other: Breast tenderness with the exam of the 1 to 2 o'clock position extending large portion of the left breast Chest palpation & inspection: normal inspection of the chest and other (no puckering, dimpling, peau de orange, retraction, discharge, masses) Breast/axilla inspection: normal inspection of the breasts Breast/axilla palpation: normal palpation of the breasts Resp Effort & Inspection: normal respiratory effort GI Inspection: Yes normal to inspection Palpation (GI): Soft to palpation Rectal Exam - Female: deferred General: Yes bladder normal to palpation External Female Exam: normal external appearance and normal appearance of the urethra Speculum Exam - Vagina: normal appearance of the vagina, normal palpation, normal vaginal discharge and vagina atrophic Speculum Exam - Cervix: normal appearance of the cervix, normal palpation and Other cervical findings present (Post LEEP appearance) Bimanual exam- vagina & uterus: normal bimanual exam, normal palpation, uterine size normal, bladder normal to palpation, normal palpation and non-tender Bimanual Exam- Adnexa, other: no masses Skin General skin exam: no rashes or lesions noted Rashes: no rashes Neuro General: patient oriented x3 Cognition (Neuro): normal cognition Extrem General: Yes normal to inspection Psych Attitude: cooperative Thought process: Normal thought process present Assessment & Plan Assessment & Plan (1) Breast pain, left: Code(s): N64.4 - Mastodynia Category: Medical Plan: Plan diagnostic left ultrasound and mammogram, consider surgical consult if indicated await results for plan of care. Comfort measures reviewed use of low heating pad p.r.n. The patient expressed understanding and agreement with the plan of care. All of her questions and concerns were addressed to the best of my ability. Total time I personally spent on visit and management today: ?15 minutes. Time spent included review of pertinent office notes in the electronic health record; review of laboratory and imaging results; review of personal family medical history; performing physical exam; discussing diagnosis and plan of care with the patient; documenting the encounter in the EMR. (2) Encounter for well woman exam with routine gynecological exam: Code(s): Z01.419 - Encounter for gynecological examination (general) (routine) without abnormal findings Category: Medical Plan Discussed: Current recommendations for pap smears per ASCCP guidelines. Breast awareness, periodic self breast exams and yearly mammogram. Maintain a healthy lifestyle, well balanced diet including Calcium 1,200 mg and Vitamin D 600 IU daily, and routine exercise. Contact the office with any postmenopausal bleeding. Patient verbalizes understanding and agrees to the plan of care. She was given opportunity to ask questions and all questions were answered to the best of my ability. RTO in 1 year for annual edge plugger exam. This note is constructed using voice recognition software. While every effort has been made to ensure accuracy, singing waiter or waitress errors may have been included. Orders: Orders MM tomosynthesis diagnostic LT Today N64.4 - Mastodynia, Z12.31 - Encounter for screening mammogram for malignant neoplasm of breast US breast LT complete Today N64.4 - Mastodynia Coding Level of Care Code Est Pt Level 2 (13376) Est Pt Prev Care 40-64y(56574) Diagnoses Breast pain, left N64.4 Encounter for well woman exam with routine gynecological exam Z01.419
[2025-01-01 10:29] VITALS: BP 124/72; BMI 23.6
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
== END 2025-01-01 11:16 | disposition home or self-care (01) ==
LOC: HO.HWS 10:20
PROVIDERS: PCP Nurse Practitioner Family; Visit Provider Advanced Practice Midwife
DX: N64.4 Mastodynia (principal); Z01.419 Encounter for gynecological examination (general) (routine) without abnormal findings
CPT/HCPCS: 99212; G0101

== ENCOUNTER → 2025-01-01 10:20 | Outpatient (BNVA) | payer MEDICARE, MEDICAID, SELFPAY | PROVIDERS: PCP Nurse Practitioner Family; Visit Provider Advanced Practice Midwife | DX: Z01.419 Encounter for gynecological examination (general) (routine) without abnormal findings (principal); N64.4 Mastodynia | CPT/HCPCS: 99212; G0101 ==

== ENCOUNTER 2025-02-15 10:01 | Outpatient (REF) | payer MEDICARE, MEDICAID, SELFPAY ==
--- NOTE | ~2025-02-15 | MM_ITS ---
EXAMINATIONS: 1. MM DIAGNOSTIC DIGITAL BREAST TOMOSYNTHESIS, LEFT 2. Targeted ultrasound of the left breast CLINICAL INFORMATION: Left breast pain and 1:00-2:00, upper outer quadrant. COMPARISON: Comparison made to multiple prior, most recent June 28, 2024, and most remote June 21, 2023. TECHNIQUE: Digital breast tomosynthesis is performed in both the craniocaudal and mediolateral oblique views along with computer-aided detection (CAD). Synthesized 2D images are generated from the tomosynthesis. Triangular skin marker was placed at the location of the pain. FINDINGS: BREAST COMPOSITION: There are scattered areas of fibroglandular density (ACR BI-RADS breast composition Category b). LEFT BREAST: No significant masses, suspicious calcifications or other abnormalities are seen. In particular, no suspicious mammographic findings adjacent to the skin marker. Targeted ultrasound of the left breast was performed at the location of the pain. The survey performed throughout the upper outer quadrant did not reveal suspicious sonographic findings. MM/MM tomosynthesis diagnostic LT IMPRESSION: LEFT BREAST: Negative, no evidence of malignancy. Clinical follow-up is recommended, otherwise, return to routine screening mammogram, expected in June 2025. ASSESSMENT: BI-RADS 1 - Negative RECOMMENDATION: 1. Patient should be managed based on the clinical impression. 2. Otherwise, routine annual screening mammography. Results were provided to the patient at time of visit by the technologist. This patient's information was entered into a reminder system with a target due date for their next mammogram. Electronically signed by: Mili Kirkpatrick MD 02/15/2025 10:44 AM EDT
--- OUTSIDE RECORDS SUMMARY | 2025-02-15 10:17 | XMS_ITS | Clinical Summary ---
Author Organization [facility] Address [address] [place] [address] Phone Care Team Providers Care Biochemistry Teacher Name Role Phone Kalie Chino MD Primary Care Provider Allergies Active Allergy Reactions Criticality Noted Date Comments Tamsulosin Itching,Swelling 08/26/2017 Penicillins Hives 01/22/2011 Sulfa (Sulfonamide Antibiotics) Nausea and/or Vomiting 08/26/2017 Triamterene Swelling 08/26/2017 Medications omeprazole (PRILOSEC) 20 MG capsule Take 1 [...] some extent. She has been wearing metal Hendley brace intermittently, with partial benefits. Feels more dependent on the Hendley brace. Additionally, reports that she was seen by Dr. Brown merchant in 2000, for her back surgery. Reviewed and discussed imaging studies extensively with the patient. Alignment of the knee is stable. 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 Discussed in detail clinical manifestation of patello-femoral syndrome. Recommended core muscle exercises in order to optimize muscle strength and improvement in knee pain. Explained that she will have to keep doing the exercises for the rest of her life in order to have prolonged benefits. We also discussed alternatives such as steroid injection if the problem persists or worsens despite treatment with formal PT. Knee replacement not warranted at this point, in terms of arthritis. Discussed benefits of knee joint exercises in detail, which may eventually help optimize the patient for knee replacement if this is to be considered in the future. May refer to her Spine Surgery in case of any concerns related to her back. All the patient's questions were answered to satisfaction. Ambulatory referral to External Physical Therapy provided for home program exercises. Follow up in three months to assess her response to treatment with formal PT. Pigmented villonodular synovitis of right knee 0 10/26/2019 Assessment & Plan (02/06/2020 8:54 AM EDT): Has a PVNS of the right knee posterior aspect. This is not causing any particular symptoms. Stable. Reviewed and discussed imaging studies, consistent with questionable PVNS. Biopsy not warranted at this point, rationale reviewed. We will continue to monitor with a repeat MRI in one year and decide if fixation is necessary based on her symptoms or change in size. Explained that her case was presented in our radiology conference and the consensus was drawn that it is a nodular synovitis. Counseled that her knee symptoms are less likely related to the cyst. Explained that we will avoid any surgical intervention until she has any symptoms related to the cyst. We discussed course of illness and risk of change in the size of the cyst, which does not mean a malignant transformation. All the patient's questions were answered to her satisfaction. Advised to monitor symptoms closely and reach out in case of any concerns. Follow up in three months or sooner if needed. Anxiety 08/26/2017 Bunion 08/26/2017 Degeneration of lumbosacral intervertebral disc 08/26/2017 Herniation of right side of L4-L5 intervertebral disc 08/26/2017 Mixed hyperlipidemia 08/26/2017 Vitamin D deficiency 08/26/2017 Nephrolithiasis 08/26/2017 Immunizations Immunization Administration Dates Next Due DTaP, unspecified formulation [...] 87 07/31/2018 4:13 PM EST Temperature 36.6 C (97.9 F) 07/31/2018 4:13 PM EST Respiratory Rate 16 07/31/2018 4:13 PM EST [...] Hx and SMOKELESS TOBACCO SCREENING 1979 HEPATITIS C SCREENING 1984 HIV ONE-TIME SCREENING (18-6 5 YEARS) 1984 PNEUMOCOCCAL VACCINES (50+ years) (1 of 2 - PCV) 1985 COLOGUARD 2011 COLONOSCOPY 2011 COLORECTAL CANCER SCREENING 2011 FIT TEST 2011 FOBT 2011 SIGMOIDOSCOPY 2011 VIRTUAL COLONOSCOPY 2011 ZOSTER VACCINES (1 of 2) 2016 DEPRESSION SCREENING 08/26/2018 08/26/2017, 08/26/2017 MAMMOGRAM 10/01/2018 10/01/2016 LIPID PANEL 07/11/2019 07/11/2014 PAP SMEAR 08/26/2020 08/26/2017, 08/26/2017, 02/18/2012 COVID-19 VACCINE (2023-2 5 season) 2024 HEPATITIS A VACCINES Aged Out No long er eligible based on patient's age to complete this topic HIB VACCINES Aged Out No longer eligi ble based on patient's age to complete this topic MENINGOCOCCAL VACCINES (ACWY) Aged Out No longer eligible based on patient's age to complete this topic MENINGOCOCCAL VACCINES (B) Aged Out N o longer eligible based [...] SEE NARRATIVE - 09/02/2017 8:41 AM EST [address] [address] Research Test Engine Operator: Joyce Caal MD MIGRATORY WORKER Cytology Report FINAL DIAGNOSIS A. PAP SMEAR (SUREPATH) C: SPECIMEN ADEQUACY: Satisfactory for evaluation; transformation zone present. INTERPRETATION: NEGATIVE FOR INTRAEPITHELIAL LESION OR MALIGNANCY. Electronically Signed Out By: Salma Holm CT(ASCP) Darnell Herrera The Pap test is a screening test primarily for squamous cancers and precursors and has associated false-negative and false-positive results. New technologies such as liquid-based preparations may decrease but will not eliminate all false-negative results. Regular sampling and follow-up of unexplained clinical signs and symptoms are recommended to minimize false negative results. PROCEDURES/ADDENDA HPV Testing (Requested) Ordered Date: 08/27/2017 HPV Test Negative for high risk human papillomavirus types 16, 18 and the Other high risk probe set (Includes 31, 33, 35, 39, 45, 51, 52, 56, 58, 59, 66, 68) by Mary cobase 4800 HR-HPV analysis. Clinical correlation is advised. This HPV test was performed at [facility], [address] [place] [address]. The accuracy and precision of this test has been verified in the Cytopathology laboratory of the [facility]. This test has not been cleared or approved by the U.S. Food and Drug Administration (FDA). CLINICAL HISTORY Date of Last Menstrual Period: ~03/09 Menstrual History: Post Menopausal Other Clinical Conditions: Screening Pap SPECIMEN SOURCE A: PAP SMEAR (SUREPATH) C Patient Name: MAXINE AGUILAR. : 1965 (Age: 52) Sex: F Institution: [facility] Location: [facility] Date of Collection: 08/26/2017 Date of Reported: 09/02/2017 08:41 Results to: Kacy Jovel MSN, BSN us Kacy Jovel NP CYTOLOGY ORDERABLES Final Resul t SEE NARRATIVE from Last 3 Months or Most Recently Relevant to Health Maintenance Insurance MEDICARE PART A & B Member Subscriber Plan / Payer (Ef fective 2006-Present) Name:Maxine Aguilar Member ID:[id number] Relation to Subscriber:Self Name:Maxine Aguilar Subscriber ID:[id number] Payer ID:[id number] Group ID:Not on file Type:Medicare [address] Member Subscriber Plan / Payer ( fective 2006-Present) Name:Maeve Aguilarnda Lary Member ID:[id number] Relation to Subscriber:Self Name:Maxine Aguilar Subscriber ID:[id number] Payer ID:[id number] Group ID:Not on file Type:Medicare Address: [address] MEDICARE PART A & B Member Subscriber Plan / Payer (Ef fective 2006-Present) Name:Lauren Maxine Guzman Member ID:[id number] Relation to Subscriber:Self Name:Maxine Aguilar Subscriber ID:[id number] Payer ID:[id number] Group ID:Not on file Type:Medicare Address: [employer] [address] [place] [address] [facility] A & B Member Subscriber Plan / Payer ( fective 2006-Present) Name:Maxine Aguilar Member ID:[id number] Relation to Subscriber:Self Name:Lauren Maxine Guzman Subscriber ID:[id number] Payer ID:[id number] Group ID:Not on file Type:Medicare Address: [employer] [address] [place] [phone] [facility] MED[facility] PART A & B Member Subscriber Plan / Payer (Ef fective 2006-Present) Name:Maxine Aguilar Member ID:[id number] Relation to Subscriber:Self Name:Maxine Aguilar Subscriber ID:[id number] Payer ID:[id number] Group ID:Not on file Type:Medicare Address: [employer] [address] [place] [phone] [place] MEDICARE PART A & B Member Subscriber Plan / Payer (Ef fective 2006-Present) Name:Maxine Aguilar Member ID:[id number] Relation to Subscriber:Self Name:Maxine Aguilar Subscriber ID:[id number] Payer ID:[id number] Group ID:Not on file Type:Medicare Address: [employer] [address] [place] [phone] [facility] MEDICARE PART A & B MEDICARE PART A & B Member Subscriber Plan / Payer ( fective 2006-Present) Name:Maxine Aguilar Member ID:[id number] Relation to Subscriber:Self Name:Maxine Aguilar Subscriber ID:[id number] Payer ID:[id number] Group ID:Not on file Type:Medicare Address: [employer] [address] [place] [address] [place] [address] MEDICARE PART A & [place] [address] Care Teams Biochemistry Teacher Relationship Specialty Start Date End Date Kalie Chino MD [address] [place] [id number] PCP - General Family Medicine 10/05/19 Additional Source Comments The information contained in this document represents components of the legal health record. It is not the complete legal health record.[facility]
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
--- OUTSIDE RECORDS SUMMARY | 2025-02-15 10:18 | XMS_ITS | Clinical Summary ---
Author Organization [facility] Address [address] [place] [address] Care Team Providers Care Clinical Laboratory Manager Name Role Phone Jass Arguello MD Primary Care Provider [phone] Encounters Date Type Department Care Team Description 01/01/[address] [facility] [address] [place] [address] Jenny Hinkle, THERMOGRAPH OPERATOR Triage from Last 3 Months Surgical History Surgery Date Site/Laterality Comments TUBAL [...] Last Done Comments Breast Cancer Screening 1965 Hepatitis B Vaccines (1 of 3 - 19+ 3-dose series) 1985 Pneumococcal Vaccine: 50+ Years (1 of 2 - PCV) 1985 Cervical Cancer Screening: P ap Smear 1987 Zoster Vaccines (1 of 2) 2016 Cholesterol Screening (Lipid Panel) 06/27/2022 Colorectal Cancer Screening: Colonoscopy 06/27/2022 HIV Screening 06/27/2022 Hepatitis C Screening 06/27/2022 Social Influencers of Health Screening 06/27/2022 COVID-19 Vaccine (1 - 2023-2 5 season) 2024 Depression Screening 07/25/2024 Influenza Vaccine (#1) 2025 3, 06/16/2010 DTaP,Tdap,and Td Vaccines (3 - Td or Tdap) 02/04/2029 02/04/2019, 11/03/2009 HIB Vaccines Aged Out No longer eligi [...] age to complete this topic Meningococcal B Vaccine Aged Out No l onger eligible based on patient's age to complete this topic RSV Immunization Patients Under 20 months Aged Out No longer eligible b ased on patient's age to complete this topic Varicella Vaccines Aged Out No longer eligible based on patient's age to complete this topic Care Teams Clinical Laboratory Manager Relationship Specialty Start Date End Date Jass Arguello MD [address] [place], [place] PCP - General 03/28/08
== END 2025-02-15 10:02 | disposition home or self-care (01) ==
LOC: HO.MAMMO 10:01
PROVIDERS: Visit Provider Advanced Practice Midwife
DX: N64.4 Mastodynia (principal)
CPT/HCPCS: 76642; 77061; 77065

== ENCOUNTER → 2025-02-15 10:05 | Outpatient (BNV) | payer MEDICARE, MEDICAID, SELFPAY | PROVIDERS: Visit Provider Radiology Body Imaging | DX: N64.4 Mastodynia (principal) | CPT/HCPCS: 76642; 77065; G0279 ==

== ENCOUNTER 2025-02-27 09:57 | Outpatient (AMB) | payer MEDICARE, MEDICAID, SELFPAY ==
--- NOTE | 2025-02-27 09:57 | MHC.OFFVIS ---
Intake Visit Reasons: TV Breast mammogram results [employer] Product Consultant: [employer] Product Consultant Present Allergies methenamine Allergy (Severe, Verified 01/01/25 10:28) mouth sores morphine (MORPHINE) Allergy (Intermediate, Verified 01/01/25 10:28) NAUSEA & VOMITING Penicillins (PENICILLINS) Allergy (Intermediate, Verified 01/01/25 10:28) rash/swelling sulfamethoxazole (From BACTRIM) Allergy (Intermediate, Verified 01/01/25 10:28) RASH tamsulosin (From FLOMAX) Allergy (Intermediate, Verified 01/01/25 10:28) RASH trimethoprim (From BACTRIM) Allergy (Intermediate, Verified 01/01/25 10:28) RASH hydrochlorothiazide (Maxzide) Allergy (Mild, Verified 01/01/25 10:28) Rash triamterene (Maxzide) Allergy (Mild, Verified 01/01/25 10:28) Rash terazosin Allergy (Verified 01/01/25 10:28) Swelling nitrofurantoin Adverse Reaction (Intermediate, Uncoded 10/16/24 10:52) painful wrists Is last menstrual period known: Yes HPI Comments Details: Tele Health Visit Total time I personally spent on visit and management today: 15 minutes. Time spent included review of pertinent office notes in the electronic health record; review of laboratory and imaging results; review of personal family medical history; discussing diagnosis and plan of care with the patient; documenting the encounter in the EMR. Patient presents to discuss: Breast imaging results, Left breast pain since her last mammogram worse when moving leaning forward and raising her arm. She additionally reports enlarged lymph nodes. REPLACED BY [facility] Medical History Breast pain, left Hydronephrosis with renal and ureteral calculous obstruction Back pain Anxiety and depression Renal calculi Bolanos esophagus Surgical History History of surgery History of loop electrical excision procedure (LEEP) Hx of tubal ligation History of esophagogastroduodenoscopy (EGD) H/O colonoscopy Hx of cystoscopy Family History Mother Dementia Father Myocardial infarction Social History Housing: House Alcohol intake: current Alcohol intake frequency: holidays/special occasions only Comment: medicated with po tramadol and pyridium Patient Tobacco Use Status: Current everyday Tobacco user Tobacco use type: Cigarette Cigarettes Per Day: 10 e-Cigarette/Vaping Use: Never Used Second Hand Smoke Exposure: Yes Substance Use Type: Marijuana Advance Directives Date on File: 01/19/21 service: No Current occupational status: employed Cognitive needs: No Hearing needs: No Vision needs: No Female Reproductive History Menstrual Age of Menarche: 12 Review of Systems Const All systems reviewed & are unremarkable except as noted in HPI and below Endo Reports no additional complaints Physical Exam Const General: cooperative, healthy appearing and no acute distress Psych Appearance: well kempt Attitude: cooperative Thought process: Normal thought process present Telehealth Telehealth Telehealth Platform: [employer] Location of provider rendering services: practice address Location of patient: address on file Patient Identification confirmed using: Name, : Yes Telehealth method: video Patient verbally consented to treatment: Yes Patient verbally consented to billing insurance company: Yes Patient informed of any privacy concerns related to visit: Yes Results Reviewed Results Reviewed: [facility] [address] [place] [address] Ultrasound Report Signed Patient: Maxine Aguilar MR#: [id number] : 1965 Acct:[id number] Age/Sex: 59 / F ADM Date: 02/15/25 Loc: HO.MAMMO Attending Dr: Maxine Jimenez CNM Ordering Physician: Maxine Jimenez CNM Date of Service: 02/15/25 Procedure(s): US breast LT limited Accession Number(s): [id number] cc: Niecy Burgos PA-C; Maxine Jimenez CNM~ EXAMINATIONS: 1. MM DIAGNOSTIC DIGITAL BREAST TOMOSYNTHESIS, LEFT 2. Targeted ultrasound of the left breast CLINICAL INFORMATION: Left breast pain and 1:00-2:00, upper outer quadrant. COMPARISON: Comparison made to multiple prior, most recent June 28, 2024, and most remote June 21, 2023. TECHNIQUE: Digital breast tomosynthesis is performed in both the craniocaudal and mediolateral oblique views along with computer-aided detection (CAD). Synthesized 2D images are generated from the tomosynthesis. Triangular skin marker was placed at the location of the pain. FINDINGS: BREAST COMPOSITION: There are scattered areas of fibroglandular density (ACR BI-RADS breast composition Category b). LEFT BREAST: No significant masses, suspicious calcifications or other abnormalities are seen. In particular, no suspicious mammographic findings adjacent to the skin marker. Targeted ultrasound of the left breast was performed at the location of the pain. The survey performed throughout the upper outer quadrant did not reveal suspicious sonographic findings. US/US breast LT limited IMPRESSION: LEFT BREAST: Negative, no evidence of malignancy. Clinical follow-up is recommended, otherwise, return to routine screening mammogram, expected in June 2025. ASSESSMENT: BI-RADS 1 - Negative RECOMMENDATION: 1. Patient should be managed based on the clinical impression. 2. Otherwise, routine annual screening mammography. Results were provided to the patient at time of visit by the technologist. This patient's information was entered into a reminder system with a target due date for their next mammogram. Electronically signed by: Mili Kirkpatrick MD 02/15/2025 10:44 AM EDT Dictated By: Mili Kirkpatrick MD Signed By: <Electronically signed by Mili Kirkpatrick MD in OV> 02/15/25 1044 DD/ 1010 TD/TT: 02/15/25 1032 Drop Hammer Pile Driver Operator: Assessment & Plan Assessment & Plan (1) Breast pain, left: Code(s): N64.4 - Mastodynia Category: Medical Plan Discussed: Ultrasound [id number] 1. Patient reports ongoing pain, advised to consider consult with the breast surgeons and evaluate for her concerns with pain and enlarged lymph nodes. Referral placed. Appointment to be scheduled for a follow up gun number exam December 2025. The patient expressed understanding and agreement with the plan of care. All of her questions and concerns were addressed to the best of my ability. This note is constructed using voice recognition software. While every effort has been made to ensure accuracy, political worker errors may have been included. Orders: Referrals Breast Surgery Referral N64.4 - Mastodynia Coding Level of Care Code Tele Est Pt Level 3 (05510) Diagnoses Breast pain, left N64.4
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
--- OUTSIDE RECORDS SUMMARY | 2025-02-27 10:29 | XMS_ITS | Clinical Summary ---
Author Organization [facility] Address [address] [place] [address] Phone Care Team Providers Care Certified Medical Aide Name Role Phone Kalie Chino MD Primary [...] partial benefits. Feels more dependent on the Carefree brace. Additionally, reports that she was seen [...] Dates Next Due DTaP, unspecified formulation 11/03/2009 INFLUENZA, SPLIT VIRUS, TRIVALENT W/ PRESERVATIV E IM 07/06/2013 Influenza, Unspecified Formulation 06/16/2010 Family History Medical [...] SEE NARRATIVE - 09/02/2017 8:41 AM EST [address] [address] Green Feed Attendant: Joyce Caal MD ASSURANCE OFFICER Cytology Report FINAL DIAGNOSIS A. PAP SMEAR (SUREPATH) C: SPECIMEN ADEQUACY: Satisfactory for evaluation; transformation zone present. INTERPRETATION: NEGATIVE FOR INTRAEPITHELIAL LESION OR MALIGNANCY. Electronically Signed Out By: REYMUNDO Jeffrey(ASCP) Darnell Herrera The Pap test is [...] 52, 56, 58, 59, 66, 68) by Amry cobase 4800 HR-HPV analysis. Clinical correlation is advised. This HPV test was performed at [facility], [address] [place] [address]. The accuracy and precision of this test has been verified in the Cytopathology laboratory of the [facility]. This test has not been cleared or approved by the U.S. Food and Drug Administration (FDA). CLINICAL HISTORY Date of Last Menstrual Period: ~03/09 Menstrual History: Post Menopausal Other Clinical Conditions: Screening Pap SPECIMEN SOURCE A: PAP SMEAR (SUREPATH) C Patient Name: MAXINE AGUILAR : 1965 (Age: 52) Sex: F Institution: [facility] Location: [facility] Date of Collection: 08/26/2017 Date of Reported: 09/02/2017 08:41 Results to: Kacy Jovel MSN, BSN us Kacy Jovel INGREDIENT SPECIALIST CYTOLOGY ORDERABLES Final Resul t SEE NARRATIVE from Last 3 Months or Most Recently Relevant to Health Maintenance Insurance MEDICARE PART A & B HEALTH MEDICARE PART A & B HEALTH MEDICARE PART A & [facility] MEDICARE PART A & B [id number] [place] [address] MEDICARE PART A & [facility] & B Member Subscriber Plan / Payer ( fective 2006-Present) Name:Maxine Aguilar Member ID:[id number] Relation to Subscriber:Self Name:Maxine Aguilar Subscriber ID:[id number] Payer ID:[id number] Group ID:Not on file Type:Medicare Address: [place] [address] MEDICARE PART A & B MEDICARE PART A & B [facility] Care Teams Certified Medical Aide Relationship Specialty Start Date End Date Kalie Chino MD [address] [place] [address] PCP - General Family Medicine 10/05/19 Additional Source Comments The information contained in this document represents components of the legal health record. It is not the complete legal health record.[facility]
--- OUTSIDE RECORDS SUMMARY | 2025-02-27 10:29 | XMS_ITS | Clinical Summary ---
Author Organization [facility] Address [address] [place] [address] Care Team Providers Care Optical Model Maker And Tester Name Role Phone Jass Arguello MD Primary Care Provider [phone] Encounters Date Type Department Care Team Description 01/01/2025 Telephone [facility] [address] [place] [address] Jenny Hinkle, MOLD YARD SUPERVISOR Triage from Last 3 Months Surgical History [...] age to complete this topic Care Teams Optical Model Maker And Tester Relationship Specialty Start Date End Date Jass Arguello MD [address] [place], [place] PCP - General 03/28/08
== END 2025-02-27 12:10 | disposition home or self-care (01) ==
LOC: HO.HWS 09:57
PROVIDERS: Visit Provider Advanced Practice Midwife
DX: N64.4 Mastodynia (principal)
CPT/HCPCS: 99213

== ENCOUNTER 2025-04-01 11:45 | Outpatient (AMB) | payer MEDICARE, MEDICAID, SELFPAY ==
--- OUTSIDE RECORDS SUMMARY | 2010-09-21 01:00 | XMS_ITS | Encounter Summary ---
Author Organization [facility] General [facility] Address [address] [place] [phone] Phone Care Team Providers Care Communications Specialist Name Role Phone Unavailable Primary Care Provider Unavailabl e Encounter Details Date Type Department Care Team (Late st Contact Info) Description 09/21/2010 Hospital Encounter [facility] General Imaging [address] [place] [address] Ron Vee MD, PhD [address] [place] [address] [email or web address] formerly [email or web address] Social History Tobacco Use Types Packs/Day Years [...] (No Interpretation) (09/21/2010 12:00 AM EST) Narrative [facility] IMG INTERFACES - 10/12/2019 10:26 AM EDT This study is for PACS storage only and not for interpretation. us Ron Vee MD, PhD IMG O UTSIDE IMAGING W/OUT INTERPRETATION Final Result [facility] IMG INTERFACES documented in this encounter Visit Diagnoses Not on filedocumented in this encounter Additional Source Comments The information contained in this document represents components of the legal health record. It is not the complete legal health record.[facility]
--- NOTE | 2025-04-01 11:36 | A.OFFVIS_ITS ---
Intake Visit Reasons: mastodynia Intake Note: Patient is seen in office for evaluation and treatment of mastodynia. Pt c/o: onset one year, pain and discomfort on the left breast toward the axilla, does not feel a lump, redness, discharge, mm showed swollen lymph nodes, had lymph nodes removed in the groin yrs ago, denies prior breast surgery or concerns, no fm hx of breast cancer, pt has personal hx of cervical cancer mm:02/15/25 Contract Design Agent Required: No Woven Label Designer: Woven Label Designer Present Accompanied by: Self / Same As Patient Allergies methenamine Allergy (Severe, Verified 04/01/25 11:43) mouth sores morphine (MORPHINE) Allergy (Intermediate, Verified 04/01/25 11:43) NAUSEA & VOMITING Penicillins (PENICILLINS) Allergy (Intermediate, Verified 04/01/25 11:43) rash/swelling sulfamethoxazole (From BACTRIM) Allergy (Intermediate, Verified 04/01/25 11:43) RASH tamsulosin (From FLOMAX) Allergy (Intermediate, Verified 04/01/25 11:43) RASH trimethoprim (From BACTRIM) Allergy (Intermediate, Verified 04/01/25 11:43) RASH hydrochlorothiazide (Maxzide) Allergy (Mild, Verified 04/01/25 11:43) Rash triamterene (Maxzide) Allergy (Mild, Verified 04/01/25 11:43) Rash terazosin Allergy (Verified 04/01/25 11:43) Swelling nitrofurantoin Adverse Reaction (Intermediate, Uncoded 04/01/25 11:43) painful wrists Medication List - Last Reconciled 04/01/25 by Gilberto Michael MD cholecalciferol (vitamin D3) 25 mcg PO DAILY HPI HPI mastodynia: Details: 60 year old female referred for mastodynia. She describes having this sharp pain on her left breast in the upper part for about a year now. She denies any trauma to the area. She denies any palpable mass. She denies any nipple or skin changes Her menarche was at age of 12. Her 1st was age of 21. She had 2 pregnancies that went to full term and 3 pregnancies that were miscarriages. She had menopause at age of 51 She denies any family history of breast cancer. She actually had a mammogram done last January 2025 which did not reveal any suggestion of any neoplastic process in the left breast. She is a chronic smoker PFSH Medical History Breast pain, left Hydronephrosis with renal and ureteral calculous obstruction Back pain Anxiety and depression Renal calculi Bolanos esophagus Surgical History History of surgery History of loop electrical excision procedure (LEEP) Hx of tubal ligation History of esophagogastroduodenoscopy (EGD) H/O colonoscopy Hx of cystoscopy Family History Mother Dementia Father Myocardial infarction Social History Housing: House Alcohol intake: current Alcohol intake frequency: holidays/special occasions only Comment: medicated with po tramadol and pyridium Patient Tobacco Use Status: Current everyday Tobacco user Tobacco use type: Cigarette Cigarettes Per Day: 10 e-Cigarette/Vaping Use: Never Used Second Hand Smoke Exposure: Yes Substance Use Type: Marijuana Advance Directives Date on File: 01/19/21 service: No Current occupational status: employed Cognitive needs: No Hearing needs: No Vision needs: No Female Reproductive History Menstrual Age of Menarche: 12 Age of menopause: 51 Total pregnancies: 5 Number of Living Children: 2 Review of Systems Const Denies chills and Denies fever(s) Card Denies chest pain, Denies dyspnea and Denies dyspnea on exertion Resp Details: Smoker Reports cough, Denies dyspnea and Denies dyspnea on exertion GI Denies hematochezia and Denies change in bowel habits Denies hematuria Musc Denies back pain and Denies limited range of motion Neuro Denies focal weakness and Denies convulsions Psych Denies depression and Denies mood swings Physical Exam Const General: comfortable and no acute distress Orientation/consciousness: patient oriented x3 Neck Neck: Yes no lymphadenopathy Chest Other: Tender on the upper part of the left breast without any palpable breast masses, no nipple or skin changes, no axillary lymphadenopathy Resp Auscultation: clear to auscultation bilaterally Cardio Rhythm: regular rhythm GI Palpation (GI): Soft to palpation, nontender and no guarding Neuro General: patient oriented x3 Assessment & Plan Assessment & Plan (1) Breast pain, left: Code(s): N64.4 - Mastodynia Category: Medical Plan: She has chronic left breast mastodynia. I have reviewed her imaging studies and this does not suggest any neoplastic process. I assured her about this finding. Physical exam does not reveal any mass or any lymphadenopathy I had a talk with her about possible this has of mastodynia. She has a chronic smoker so this may be contributory. I advised her on the benefits of this. I printed out a brochure for her about mastodynia. She says she did not want to take ibuprofen or Tylenol for pain I she is worry about medications. I told her that she has to continue with the her regular screening mammograms. I told her that she is welcome to come back to the office to be re-evaluated if she has concerns about this down the line She was comfortable with the plan. Coding Level of Care Code New Pt Level 3 (52223) Diagnoses Breast pain, left N64.4
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
--- OUTSIDE RECORDS SUMMARY | 2025-04-01 14:22 | XMS_ITS | Clinical Summary ---
Author Organization [facility] Address [address] [place] [address] Phone Care Team Providers Care Creative Writing Professor Name Role Phone Kalie Chino MD Primary [...] some extent. She has been wearing metal Garrard brace intermittently, with partial benefits. Feels more dependent on the Garrard brace. Additionally, reports that she was seen [...] SEE NARRATIVE - 09/02/2017 8:41 AM EST [address] [address] Certified Pathology Assistant: Joyce Caal MD GAS METER INSTALLER HELPER Cytology Report FINAL DIAGNOSIS A. PAP SMEAR [...] advised. This HPV test was performed at [facility], [address] [place] [address]. The accuracy and precision of this test has been verified in the Cytopathology laboratory of the [facility]. This test has not been cleared or approved by the U.S. Food and Drug Administration (FDA). CLINICAL HISTORY Date of Last Menstrual Period: ~03/09 Menstrual History: Post Menopausal Other Clinical Conditions: Screening Pap SPECIMEN SOURCE A: PAP SMEAR (SUREPATH) C Patient Name: MAXINE AGUILAR : 1965 (Age: 52) Sex: F Institution: [facility] Location: [facility] Date of Collection: 08/26/2017 Date of Reported: 09/02/2017 08:41 Results to: Kacy Jovel MSN, BSN us Kacy Jovel STAFF THERAPIST CYTOLOGY ORDERABLES Final Resul t SEE NARRATIVE from Last 3 Months or Most Recently Relevant to Health Maintenance Insurance MEDICARE PART A & B HEALTH MEDICARE PART A & B HEALTH MEDICARE PART A & [facility] & B [facility] MEDICARE PART A & B [id number] [place] [address] MEDICARE PART A & B [facility] MEDIC[facility] PART A & B Member Subscriber Plan / Payer ( fective 2006-Present) Name:Maxine Aguilar Member ID:[id number] Relation to Subscriber:Self Name:Maxine Aguilar Subscriber ID:[id number] Payer ID:[id number] Group ID:Not on file Type:Medicare Address: [employer] [address] MEDICARE PART A & B MEDICARE PART A & B [facility] Care Teams Creative Writing Professor Relationship Specialty Start Date End Date Kalie Chino MD [address] [place] [address] PCP - General Family Medicine 10/05/19 Additional Source Comments The information contained in this document represents components of the legal health record. It is not the complete legal health record.[facility]
--- OUTSIDE RECORDS SUMMARY | 2025-04-01 14:22 | XMS_ITS | Clinical Summary ---
Author Organization [facility] Address [address] [place] [address] Care Team Providers Care Healthcare Or Medical Name Role Phone Jass Arguello MD Primary Care Provider [phone] Encounters Date Type Department Care Team Description 01/01/2025 Telephone [facility] [address] [place] [address] Jenny Hinkle SOCIAL SERVICE ASSISTANT from Last 3 Months Surgical History Surgery [...] 06/27/2022 Social Influencers of Health Screening 06/27/2022 Depression Screening 07/25/2024 COVID-19 Vaccine (1 - 2023-2 5 season) 2025 Influenza Vaccine (#1) 2025 3, 06/16/2010 DTaP,Tdap,and Td Vaccines (3 - Td or Tdap) 02/04/2029 02/04/2019, 11/03/2009 RSV Immunization Adult Patients (1 - 1-dose 75+ series) 2041 HIB Vaccines Aged Out No longer eligi [...] age to complete this topic Care Teams Healthcare Or Medical Relationship Specialty Start Date End Date Jass Arguello MD [address] [place] [address] PCP - General 03/28/08
== END 2025-04-01 12:01 | disposition home or self-care (01) ==
LOC: HO.HGS 11:45
PROVIDERS: Visit Provider Surgery
DX: N64.4 Mastodynia (principal)
CPT/HCPCS: 99203

== ENCOUNTER → 2025-04-01 11:45 | Outpatient (BNVA) | payer MEDICARE, MEDICAID, SELFPAY | PROVIDERS: Visit Provider Surgery | DX: N64.4 Mastodynia (principal); Z85.41 Personal history of malignant neoplasm of cervix uteri; F17.210 Nicotine dependence, cigarettes, uncomplicated | CPT/HCPCS: 99202 ==

== ENCOUNTER 2025-05-16 08:59 | Outpatient (AMB) | payer MEDICARE, MEDICAID, SELFPAY ==
--- OUTSIDE RECORDS SUMMARY | 2010-09-21 01:00 | XMS_ITS | Encounter Summary ---
Author Organization [facility] Address [address] [place] [id number] Phone Care Team Providers Care Ncqa Specialist Name Role Phone Unavailable Primary Care Provider Unavailabl e Encounter Details Date Type Department Care Team (Late st Contact Info) Description 09/21/2010 Hospital Encounter [facility] General Imaging [address] [place] [address] Ron Vee MD, PhD [address] [address] [email or web address] formerly [email or web address] Social History Tobacco Use Types Packs/Day Years Used Date Smoking Tobacco: Every Day Cigarettes Smokeless Tobacco: Never Comments:6 cigarettes daily Alcohol Use Standard Drinks/Week Comments No 0 (1 standard drink = 0.6 oz pur e alcohol) Education Answer Date Recorded Are you interested in more education? Not on sharmaine e 11/24/2022 Are you concerned about learning? Not on file 11/24/2022 No 11/24/2022 No 11/24/2022 Digital Access Answer Date Recorded No 12/19/2022 No 12/19/2022 Reliable internet access at home? Not on file 12/19/2022 Device with a working camera? Not on file Comments Unknown Sex and Gender Information Value Date Recorded Sex Assigned at Not on file Legal Sex Female 5:25 PM EST Gender Identity Not on file Sexual Orientation Not on file documented as of this encounter Plan of Treatment Not on file documented as of this encounter Procedures Procedure Name Priority Date/Time Associated Diagnosis Comments MRI SPINE MUSCULOSKELETAL FOCUS OUTSIDE (NO INTERPRETATION) Routine 09/21/2010 12:00 AM EST documented in this encounter Results * MRI Spine (Bone) Outside (No Interpretation) (09/21/2010 12:00 AM EST) Narrative [facility] IMG INTERFACES - 10/12/2019 10:26 AM EDT This study is for PACS storage only and not for interpretation. us Ron Vee MD, PhD IMG O UTSIDE IMAGING W/OUT INTERPRETATION Final Result [facility] INTERFACES documented in this encounter Visit Diagnoses Not on filedocumented in this encounter Additional Source Comments The information contained in this document represents components of the legal health record. It is not the complete legal health record.[facility]
--- NOTE | 2025-05-16 09:16 | MHC.PC.OV ---
Vital Signs 05/16/25 09:17 Height 5 ft 1 in Weight 124 lb BMI 23.4 BP 130/78 Blood Pressure Location Lt brachial Position Sitting Pulse 85 Pulse Source Pulse Oximeter Pulse Oximetry (%) 97 Oxygen Delivery Method Room Air Intake Visit Reasons: Annual Exam Allergies methenamine Allergy (Severe, Verified 05/16/25 09:23) mouth sores morphine (MORPHINE) Allergy (Intermediate, Verified 05/16/25 09:23) NAUSEA & VOMITING Penicillins (PENICILLINS) Allergy (Intermediate, Verified 05/16/25 09:23) rash/swelling sulfamethoxazole (From BACTRIM) Allergy (Intermediate, Verified 05/16/25 09:23) RASH tamsulosin (From FLOMAX) Allergy (Intermediate, Verified 05/16/25 09:23) RASH trimethoprim (From BACTRIM) Allergy (Intermediate, Verified 05/16/25 09:23) RASH hydrochlorothiazide (Maxzide) Allergy (Mild, Verified 05/16/25 09:23) Rash triamterene (Maxzide) Allergy (Mild, Verified 05/16/25 09:23) Rash terazosin Allergy (Verified 05/16/25 09:23) Swelling nitrofurantoin Adverse Reaction (Intermediate, Uncoded 05/16/25 09:23) painful wrists Medication List - Last Reconciled 05/16/25 by Niecy Burgos PA-C No Known Home Meds Tobacco use date assessed: 05/16/25 Dental Screening Dental Screen Date: 05/16/25 Did you have a dental visit in the last 12 months?: Yes Did you have a dental problem in the last 6 months where you did not have access to dental care?: No Was dental information given to patient?: Patient has dentist HPI Annual Exam HPI Details 60 year old female with past medical history of nephrolithiasis, barrets esophagus, anxiety, depression and tobacco use last seen 04/2024 coming in for annual exam. In review of the notes, she was seen by general surgery 03/2025 for breast pain advised to continue with regular mammograms. Presenting for a wellness visit and management of multiple chronic conditions. The patient reports experiencing breast pain, initially identified during a gynecological checkup where a swollen gland was noted. Imaging studies, including a mammogram and ultrasound, showed no abnormalities. The pain is suspected to be related to menopause or hormonal changes. The patient has a history of carpal tunnel syndrome, with symptoms of dropping objects and numbness, particularly in the left hand. A nerve study is planned to assess the severity and determine the need for surgical intervention. The patient reports difficulty staying asleep, often waking due to environmental noises or the need to urinate. Kbuq-dlb-purfchg melatonin or magnesium have been suggested for management. She does also report leg cramping occasionally while sleeping. The patient smokes cigarettes and uses cannabis, with no current interest in cessation. Previous attempts to quit smoking resulted in irritability. mammogram: 01/2025 eye doctor: Dr. Estrada colonoscopy: 2021 repeat in 5 years pap smear: UTD w/ panel saw operator vaccines: declining shingles, flu and PCV due for Td but declining PFSH Medical History Breast pain, left Hydronephrosis with renal and ureteral calculous obstruction Back pain Anxiety and depression Renal calculi Bolanos esophagus Surgical History History of surgery History of loop electrical excision procedure (LEEP) Hx of tubal ligation History of esophagogastroduodenoscopy (EGD) H/O colonoscopy Hx of cystoscopy Family History Mother Dementia Father Myocardial infarction Other Mental health disorder Social History Housing: House Alcohol intake: current Alcohol intake frequency: holidays/special occasions only Comment: medicated with po tramadol and pyridium Patient Tobacco Use Status: Current everyday Tobacco user Tobacco use type: Cigarette Cigarettes Per Day: 10 e-Cigarette/Vaping Use: Never Used Second Hand Smoke Exposure: Yes Substance Use Type: Marijuana Advance Directives Date on File: 01/19/21 service: No Current occupational status: employed Cognitive needs: No Hearing needs: No Vision needs: Yes Female Reproductive History Menstrual Age of Menarche: 12 Questionnaire PHQ-9 Over the last 2 weeks, how often have you been bothered by any of the following problems? 1. Little interest or pleasure in doing things: several days 2. Feeling down, depressed, or hopeless: several days 3. Trouble falling or staying asleep, or sleeping too much: several days 4. Feeling tired or having little energy: several days 5. Poor appetite or overeating: not at all 6. Feeling bad about yourself - or that you are a failure or have let yourself or your family down: several days 7. Trouble concentrating on things, such as reading the newspaper or watching television: not at all 8. Moving or speaking so slowly that other people could have noticed. Or the opposite - being so fidgety or restless that you have been moving around a lot more than usual: not at all 9. Thoughts that you would be better off or of hurting yourself in some way: not at all Total score: 5 Depression Screening Interpretation: Positive Depression Screening Follow-up: Existing condition and Declines treatment Depression Screening Done: Yes 39086 - PHQ-9 Billing: Yes Source: Developed by Drs. Bridger Oliver, Sandhya Blackmon, Fadi Mason and colleagues, with an educational parul from [employer]. Thrive Questionnaire Date Thrive assessed: 05/14/25 I am a: Patient What is your living situation today?: I have a steady place to live Within the past 12 months, did the food you bought not last and you didn't have the money to get more?: Never true Within the past 12 months, did you worry whether your food would run out before you got money to buy more?: Never true Do you have trouble paying for medicines?: I choose not to answer this question Do you have trouble getting transportation to medical appointments?: No Do you have trouble paying your heating and electricity bill?: I choose not to answer this question Do you have trouble taking care of your child, family member or friend?: No Do you have trouble with day-to-day activities such as bathing, preparing meals, shopping, managing finances, etc.?: No Are you currently unemployed and looking for a job?: I choose not to answer this question Are you interested in more education?: No Please select the resources that you would like help with: None Currently or been in a relationship where the following occur: No concerns reported THRIVE Score: 0 AUDIT C Alcohol Use Questionnaire (AUDIT-C) 1. How often do you have a drink containing alcohol?: Never 3. How often do you have six or more drinks on one occasion?: Never Total Score: 0 DELORES-7 AMB Questionnaire DELORES-7 Date DELORES - 7 assessed: 05/16/25 Feeling nervous, anxious, or on edge: 1 = Several days Not being able to stop or control worryin = Several days Worrying too much about different things: 1 = Several days Trouble relaxin = Several days Being so restless that it is hard to sit still: 1 = Several days Becoming easily annoyed or irritable: 1 = Several days Feeling afraid as if something awful might happen: 0 = Not at all Total DELORES-7 score (0-4 normal; 5-9 mild; 10-14 moderate; 15-21 severe): 6 Source: Developed by Drs. Bridger Oliver, Sandhya Blackmon, Fadi Mason and colleagues, with an educational parul from [employer]. DELORES-7 Assessment Billing DELORES-7 Assessment Tool: DELORES-7 Assessment 43349 Review of Systems Const Denies body aches, Denies fatigue, Denies fever(s), Denies frequent falls, Denies headache(s) and Denies weakness Eyes Reports no additional complaints and Denies change in vision ENT Denies dysphagia, Denies dizziness, Denies facial pain, Denies headache(s), Denies nasal congestion and Denies odynophagia Card Denies chest pain, Denies syncope, Denies irregular heart rhythm, Denies leg edema, Denies lightheadedness and Denies dyspnea Resp Denies cough and Denies dyspnea GI Denies constipation, Denies dysphagia, Denies dyspepsia, Denies diarrhea, Denies nausea, Denies odynophagia and Denies vomiting Denies urinary frequency, Denies dysuria, Denies urinary hesitancy and Denies urinary urgency Musc Denies back pain and Denies myalgias Skin/Breast Reports system reviewed and no additional complaints, except as documented Neuro Denies dizziness, Denies syncope, Denies frequent falls, Denies headache(s) and Denies weakness Psych Reports no additional complaints Endo Denies fatigue Physical exam (Primary Care) Vital Signs: Last Vital Signs Pulse 85 05/16/25 09:17 BP 130/78 05/16/25 09:17 Pulse Ox 97 05/16/25 09:17 Oxygen Delivery Method Room Air 05/16/25 09:17 BMI result Body Mass Index 23.4 Tobacco/Smoking Status: Tobacco use Status Tobacco use date assessed 05/16/25 05/16/25 09:21 Patient Tobacco Use Status Current everyday Tobacco 05/16/25 09:21 Tobacco use type Cigarette 05/16/25 09:21 e-Cigarette/Vaping Use Never Used 05/16/25 09:21 Are you ready to quit: No Tobacco cessation counseling provided: Yes Items discussed: Nicotine replacement and Other Relapse Prevention: discussed negative mood or depression after quitting, weight gain after smoking is common and discussed dietary, exercise and/or lifestyle changes CPT code: Less than 3 minutes PHQ-9: PHQ-9 Score PHQ-9: Total score 5 05/16/25 09:34 Depression Screening Interpretation: Positive Depression Screening Follow-up: Existing condition and Declines treatment Thrive Assessment: Date of Thrive Assessment Date Thrive assessed 05/14/25 05/16/25 09:21 Currently or been in a relationship where the following occur: No concerns reported Const General: cooperative, healthy appearing, comfortable and no acute distress Orientation/consciousness: patient oriented x3 HENMT Head: Yes normocephalic Ears: hearing grossly normal bilaterally, external ears normal, TM's normal bilaterally and EAC's normal General nose exam: Normal external nose present Face and sinus: Yes normal facial exam and Yes sinuses nontender Mouth: Normal oral and palatal mucosa present and tongue normal Throat: Yes posterior oropharynx normal Eyes General: appearance normal, both eyes and all related structures Conjunctivae: conjunctivae normal Pupils: Equal, round and reactive pupils present EOM: EOMs intact bilaterally and No Nystagmus present Neck Neck: Yes normal visual inspection, Yes full ROM and Yes no lymphadenopathy Chest Chest palpation & inspection: normal inspection of the chest Resp Effort & Inspection: normal respiratory effort Auscultation: clear to auscultation bilaterally, no crackles, no rales, no rhonchi, no wheezes and breath sounds present Cardio Rate: regular rate Rhythm: regular rhythm Peripheral pulses: radial pulses present and dorsalis pedis present GI Inspection: Yes normal to inspection and No Abdominal wall edema Palpation (GI): Soft to palpation, not firm and nontender Auscultation: normal bowel sounds Rectal Exam - Female: deferred General: Yes no CVA tenderness Back/Spine/Pelvis Back: no CVA tenderness Skin General skin exam: no rashes or lesions noted Neuro General: patient oriented x3 Cranial nerves: Yes Equal, round and reactive pupils present, Yes Midline tongue present, Yes Ability to bilaterally elevate shoulders present and No Nystagmus present Gait exam (Neuro): Normal gait present Extrem General: Yes normal to inspection, Yes full ROM, No no pedal edema and No edema Psych Speech and movement: Normal speech and movement present Affect: normal affect Insight: Good insight present (Psych) Judgement: Good judgement present (Psych) Coding Level of Care Code Est Pt Prev Care 40-64y(10658) Diagnoses Annual physical exam Z00.00 Anxiety and depression F41.9; F32.A Bolanos esophagus K22.70 Nephrolithiasis N20.0 Breast pain, left N64.4 Tobacco use Z72.0 Bilateral hand numbness R20.0 Insomnia G47.00 Additional Codes DELORES-7 Assessment Billing - DELORES-7 Assessment Tool: DELORES-7 Assessment 74829 ([id number]) PHQ-9 - 63999 - PHQ-9 Billing: Yes ([id number]) Assessment & Plan Assessment & Plan (1) Annual physical exam: Code(s): Z00.00 - Encounter for general adult medical examination without abnormal findings Category: Medical Plan: Patient is up-to-date on all recommended routine screenings for her age. She is overdue for vaccinations in his declining in the office today. I did order for updated blood work and plan to follow up in 1 year or sooner as needed pending blood work evaluation. Healthy diet and regular exercise is encouraged. (2) Anxiety and depression: Code(s): F41.9 - Anxiety disorder, unspecified; F32.A - Depression, unspecified Category: Medical Plan: Previously seeing counselor and declining medication or counseling at this time. She will reach out if this should change. (3) Bolanos esophagus: Code(s): K22.70 - Bolanos's esophagus without dysplasia Category: Medical Plan: Avoid trigger foods such as citrus, tomato products, soda, caffeine, spicy foods and other foods that may be irritating to your stomach. Avoid laying flat 3-4 hours after eating and elevate the head of the bed 30 degrees to prevent acid from moving into the esophagus. (4) Nephrolithiasis: Code(s): N20.0 - Calculus of kidney Category: Medical Plan: She is currently following with Urology for kidney stones and has upcoming ultrasound. Advised to stay well hydrated and avoid excessive intake of calcium (5) Breast pain, left: Code(s): N64.4 - Mastodynia Category: Medical Plan: Previously seen by Dr. Michael for breast pain determined to be benign advised to use Tylenol and ibuprofen as needed. She will continue with yearly mammograms (6) Tobacco use: Code(s): Z72.0 - Tobacco use Category: Social Hx Plan: Smoking cigarettes and the use of tobacco can be harmful. We discussed the importance of stopping and options to aid in smoking cessation. Declining NRT and medication at this time. (7) Bilateral hand numbness: Code(s): R20.0 - Anesthesia of skin Category: Medical Plan: The patient has a history of carpal tunnel syndrome with symptoms of dropping objects and numbness, particularly in the left hand. A nerve study is planned to assess the severity and determine the need for surgical intervention. The patient is advised to consider wearing splints at night to alleviate symptoms. (8) Insomnia: Code(s): G47.00 - Insomnia, unspecified Category: Medical Plan: The patient reports difficulty staying asleep, often waking due to environmental noises or the need to urinate and occasionally leg cramping. Dqzy-jzu-ciraaqy melatonin and magnesium have been suggested for management. The patient is advised to monitor sleep patterns and consider lifestyle modifications to improve sleep quality. Magnesium prescription was sent to pharmacy. Plan This note was constructed using voice recognition software. While every effort has been made to ensure accuracy and hydroelectric station operator, still areas may have been included sometimes these areas may affect the content or meeting of the given symptoms. Total time spent caring for the patient today was 30 minutes. This includes time spent before the visit reviewing the chart, time spent during the visit, and time spent after the visit and documentation. Patient was informed and verbally consented to the use of an ambient scribe for clinic note documentation during this visit. Orders: Orders NE electromyogram (EMG) Today R20.0 - Anesthesia of skin Lipid Panel Today Z13.220 - Encounter for screening for lipoid disorders Comprehensive Met. Panel Today N20.0 - Calculus of kidney, Z00.00 - Encounter for general adult medical examination without abnormal findings Vitamin B12 and Folate Today Z13.21 - Encounter for screening for nutritional disorder Complete Blood Count Auto Diff Today K22.70 - Bolanos's esophagus without dysplasia, Z13.0 - Encounter for screening for diseases of the blood and blood-forming organs and certain disorders involving the immune mechanism NE nerve conduction velocity Today R20.0 - Anesthesia of skin TSH reflex Free T4 Today Z13.29 - Encounter for screening for other suspected endocrine disorder Free T4 (Free Thyroxine) Today Z13.29 - Encounter for screening for other suspected endocrine disorder Vitamin D 25-OH Total Today Z13.21 - Encounter for screening for nutritional disorder Medications: New magnesium 250 mg PO DAILY 90 tabs 0RF sodium chloride 0.65% ([place] Saline) 1 spray intranasal BID PRN 50 mL 0RF dry nasal passages
[2025-05-16 09:17] VITALS: BP 130/78; PULSE 85; O2SAT 97; BMI 23.4
--- OUTSIDE RECORDS SUMMARY | 2025-05-16 09:48 | XMS_ITS | Clinical Summary ---
Author Organization [facility] Address [address] [place] [id number] Phone Care Team Providers Care Senior Media Director Name Role Phone Kalie Chino MD Primary [...] some extent. She has been wearing metal Guttenberg brace intermittently, with partial benefits. Feels more [...] 08/26/2020 08/26/2017, 08/26/2017, 02/18/2012 INFLUENZA VACCINE (#1) 2025 3, 07/06/2013, 06/16/2010 COVID-19 VACCINE ( - 2024-2 6 season) 2025 RSV VACCINE (1 - 1-dose 75+ series) 2041 HEPATITIS A VACCINES Aged Out No long [...] SEE NARRATIVE - 09/02/2017 8:41 AM EST [address] [address] Selenium Plant Operator: Joyce Caal MD COREMAKING MACHINE SETTER Cytology Report FINAL DIAGNOSIS A. PAP SMEAR [...] advised. This HPV test was performed at [facility], [address] [place] [address]. The accuracy and precision of this test has been verified in the Cytopathology laboratory of the [facility]. This test has not been cleared or approved by the U.S. Food and Drug Administration (FDA). CLINICAL HISTORY Date of Last Menstrual Period: ~03/09 Menstrual History: Post Menopausal Other Clinical Conditions: Screening Pap SPECIMEN SOURCE A: PAP SMEAR (SUREPATH) C Patient Name: MAXINE AGUILARNaun : 1965 (Age: 52) Sex: F Institution: [facility] Location: [facility] Date of Collection: 08/26/2017 Date of Reported: 09/02/2017 08:41 Results to: Kacy Jovel MSN, BSN us Kacy Jovel NP CYTOLOGY ORDERABLES Final Resul t SEE NARRATIVE from Last 3 Months or Most Recently Relevant [place] [id number] MEDICARE PART A & B [facility] MEDICARE PART A & B [facility] MEDICARE PART A & B MEDICARE PART A & B MEDICARE PART A & B [facility] B Member Subscriber Plan / Payer (Ef fective 2006-Present) Name:Maxine Aguilar Member ID:[id number] Relation to Subscriber:Self Name:Maxine Aguilar Subscriber ID:[id number] Payer ID:[id number] Group ID:Not on file Type:Medicare Address: [employer] [address] [place] [address] [place], [place] [address]HEALTH MEDICARE PART A & B Member Subscriber Plan / Payer (Ef fective 2006-Present) Name:Lauren Maxine Guzman Member ID:[id number] Relation to Subscriber:Self Name:Lauren Maxine Guzman Subscriber ID:[id number] Payer ID:[id number] Group ID:Not on file Type:Medicare Address: [email or web address] [address] MEDICARE PART A & B [facility] MEDICARE PART A & B [facility] Care Teams Senior Media Director Relationship Specialty Start Date End Date Kalie Chino MD [address] [place] [address] [phone] PCP - General Family Medicine 10/05/19 Additional Source Comments The information contained in this document represents components of the legal health record. It is not the complete legal health record.[facility]
--- OUTSIDE RECORDS SUMMARY | 2025-05-16 09:48 | XMS_ITS | Clinical Summary ---
Author Organization [facility] Address [address] [place] [address] Care Team Providers Care Shop Helper Name Role Phone Jass Arguello MD Primary Care Provider [phone] Surgical History Surgery Date Site/Laterality Comments TUBAL [...] Last Done Comments Breast Cancer Screening 1965 Colorectal Cancer Screening: Colonoscopy 1965 Hepatitis B Vaccines (1 of 3 - 19+ 3-dose series) 1985 Pneumococcal Vaccine: 50+ Years (1 of 2 - PCV) 1985 Cervical Cancer Screening: P ap Smear 1987 Zoster Vaccines (1 of 2) 2016 Cholesterol Screening (Lipid Panel) 06/27/2022 HIV Screening 06/27/2022 Hepatitis C Screening 06/27/2022 Social Influencers of Health Screening 06/27/2022 Depression Screening 07/25/2024 COVID-19 Vaccine ( - 2023-2 5 season) 2025 Influenza Vaccine [...] age to complete this topic Care Teams Shop Helper Relationship Specialty Start Date End Date Jass Arguello MD [address] [place] [address] PCP - General 03/28/08
== END 2025-05-16 09:53 | disposition home or self-care (01) ==
LOC: HO.HMCH 08:59
DX: Z00.00 Encounter for general adult medical examination without abnormal findings (principal); F41.9 Anxiety disorder, unspecified; F32.A Depression, unspecified; K22.70 Barrett's esophagus without dysplasia; N20.0 Calculus of kidney; N64.4 Mastodynia; Z72.0 Tobacco use; R20.0 Anesthesia of skin; G47.00 Insomnia, unspecified

== ENCOUNTER → 2025-05-16 08:59 | Outpatient (BNVA) | payer MEDICARE, MEDICAID, SELFPAY | PROVIDERS: PCP Nurse Practitioner Family | DX: Z00.00 Encounter for general adult medical examination without abnormal findings (principal); G56.02 Carpal tunnel syndrome, left upper limb; F17.210 Nicotine dependence, cigarettes, uncomplicated; F41.9 Anxiety disorder, unspecified; F32.A Depression, unspecified; K22.70 Barrett's esophagus without dysplasia; N20.0 Calculus of kidney; N64.4 Mastodynia; G47.00 Insomnia, unspecified | CPT/HCPCS: 96127; 99396 ==